=== PATIENT | male | born 1955 | race Caucasian/White ===

== ENCOUNTER 2018-08-05 19:33 | Observation (INO) | payer OTHER ==
[2018-08-05] MEDS ORDERED: ONDANSETRON 4 MG/2 ML VIAL ONE (20:04)
[2018-08-05] MEDS ORDERED: MORPHINE 4 MG/ML SYR ONE (20:04)
[2018-08-05] MEDS ORDERED: CYCLOBENZAPRINE 10 MG TAB ONE (20:19)
[2018-08-05] MEDS ORDERED: MEPERIDINE HCL 50 MG/ML AMP ONE (20:45)
[2018-08-05] MEDS ORDERED: NA CHLORIDE 0.9% 1,000 ML ONE (20:54)
--- NOTE | 2018-08-05 21:11 | RAD REPORT ---
EXAM DESCRIPTION: RAD - Chest Single View - 08/05/2018 9:03 pm CLINICAL HISTORY: back pain, diaphoresis Chest pain. COMPARISON: No comparisons FINDINGS: Portable technique limits examination quality. Mild to moderate bilateral pulmonary opacities are seen which may represent pulmonary edema or pneumo barry. The heart is normal in size. No displaced fractures.
[2018-08-05 21:23] LABS: Protime INR 1.28
[2018-08-05 21:58] LABS: ALT/SGPT 28 U/L (12-78); AST/SGOT 45 U/L (15-37); Albumin 3.9 g/dL (3.4-5.0); Alkaline Phosphatase 76 U/L (45-117); BUN Blood Urea Nitrogen 17 mg/dL (7-18); Bicarbonate 28 mmol/L (21-32); Bilirubin Direct 0.2 mg/dL (0-0.2); Bilirubin Total 1.4 mg/dL (0.2-1.0); Glucose Level 100 mg/dL (74-106); Magnesium 2.6 mg/dL (1.8-2.4); NT PRO-BNP 438 pg/mL (<125); Potassium 4.4 mmol/L (3.5-5.1); Protein, Total 6.9 g/dL (6.4-8.2); Sodium Level 139 mmol/L (136-145); Troponin (Emerg Dept Use Only) < 0.02 ng/mL (0.0-0.045)
[2018-08-05 22:10] LABS: Absolute Lymphocytes (CBC) 0.2 K/uL (0.7-4.9); Absolute Monocytes 0.9 K/uL (0.1-1.3); Absolute Neutrophil 5.7 K/uL (1.8-8.0); Basophils % 0.5 % (0-1.3); Eosinophils % 0.8 % (0-4.4); Hematocrit 57.2 % (39.6-49.0); Lymphocytes % 3.4 % (15.3-44.8); MCH 24.8 pg (27.0-35.0); MCV 76.4 fL (80-100); MPV 8.1 fL (7.6-11.3); Monocytes % 13.6 % (3.3-12.3); RBC Red Blood Cell Count 7.49 M/uL (4.33-5.43)
[2018-08-05 23:07] LABS: Anisocytosis 1+; Blood Morphology Comment NOTED (NOT SEEN); Platelet Estimate ADEQ; Urine White Blood Cell Casts OK
--- NOTE | 2018-08-05 23:47 | ER ---
Nurse's Notes [facility] Name: Gurvinder Ch Age: 62 yrs Sex: Male : 1955 Arrival Date: 08/05/2018 Time: 19:34 Bed 28 Private MD: Diagnosis: Severe back pain. Hypotension Presentation: 08/05 19:38 Presenting complaint: EMS states: Patient complained of having severe lower back pain kr2 said he slumped over and collapsed due to the severe pain. Upon EMS arrival he was awake but pale and diaphoretic with a blood pressure of 85/42. He was given 250mL bolus of saline and blood pressure came up to 120/80's. Transition of care: patient was not received from another setting of care. Onset of symptoms was August 05, 2018. Risk Assessment: Do you want to hurt yourself or someone else? Patient reports no desire to harm self or others. Initial Sepsis Screen: Does the patient meet any 2 criteria? No. Patient's initial sepsis screen is negative. Does the patient have a suspected source of infection? No. Patient's initial sepsis screen is negative. Care prior to arrival: Medication(s) given: Normal saline infusion, 250 ML IV initiated. 18 GA, in the left antecubital area. 19:38 Method Of Arrival: EMS: [facility] kr2 19:38 Acuity: JES 3 kr2 Triage Assessment: 19:44 General: Appears in no apparent distress. uncomfortable, slender, well groomed, well kr2 developed, well nourished, Behavior is cooperative, restless. Pain: Complains of pain in lumbar area, left low back and right low back Pain does not radiate. Pain currently is 10 out of 10 on a pain scale. Quality of pain is described as sharp, stabbing, Is continuous, Alleviated by nothing. Aggravated by laying flat, repositioning. Historical: - Allergies: 19:43 No Known Allergies; kr2 - Home Meds: 19:43 multivitamin oral oral [Active]; kr2 - PMHx: 19:43 None; kr2 - PSHx: 19:43 Hernia repair; kr2 - Immunization history:: Adult Immunizations up to date. - Social history:: Smoking status: Patient/guardian denies using tobacco. - Ebola Screening: : No symptoms or risks identified at this time. Screenin:47 Abuse screen: Denies threats or abuse. Denies injuries from another. Nutritional kr2 screening: No deficits noted. Tuberculosis screening: No symptoms or risk factors identified. Fall Risk IV access (20 points). Assessment: 19:53 Reassessment: mild pain noted in the lower back. mg2 19:54 Musculoskeletal: Capillary refill < 3 seconds, Reports pain in right low back and left mg2 low back since an hour ago. Pain is 2 out of 10 on a pain scale. 20:50 Reassessment: Entered patient room to help move him up in bed, patient diaphoretic and kr2 drowsy but responsive. Provider notified and at bedside, blood glucose done by me, EKG performed by CODIE Servin. 21:46 Reassessment: Josh Cervantes (Friend)- [phone]. mg2 22:19 Reassessment: patient sent to ct by stretcher. mg2 23:45 Reassessment: Patient with oxygen saturation at 85%, no SOB or s/sx of distress, placed kr2 on O2 \T\ 3 LPM via NC sats increased to 98%, Dr. Blunt notified. Vital Signs: 19:43 BP 131 / 97; Pulse 77; Resp 13; Temp 97.9; Pulse Ox 100% ; Weight 74.84 kg; Height 5 kr2 ft. 11 in. (180.34 cm); Pain 10/10; 20:52 BP 112 / 88 RA Supine (auto/reg); Pulse 73; Resp 20 S; Temp 97.7(O); Pulse Ox 98% on bb R/A; 20:52 BP 124 / 76 LA Supine (auto/reg); bb 21:25 BP 108 / 71; Pulse 63; Resp 18; Pulse Ox 98% on R/A; mg2 23:42 BP 92 / 57; Pulse 64; Resp 18; Pulse Ox 97% on 2 lpm NC; Pain 0/10; mg2 08/06 01:03 BP 111 / 83; Pulse 62; Resp 18; Pulse Ox 100% on R/A; Pain 0/10; mg2 01:24 BP 99 / 71; Pulse 60; Resp 18; Pulse Ox 98% on R/A; Pain 0/10; mg2 08/05 19:43 Body Mass Index 23.01 (74.84 kg, 180.34 cm) kr2 01:24 patient is sleeping mg2 ED Course: 08/05 19:34 Patient arrived in ED. al2 19:34 Naveen Blunt MD is Attending Physician. pkl 19:42 Triage completed. kr2 19:46 Arm band placed on right wrist. kr2 19:47 Patient has correct armband on for positive identification. Placed in gown. Bed in low kr2 position. Call light in reach. Side rails up X2. annealing furnace tender on. Pulse ox on. NIBP on. Door closed. Warm blanket given. Head of bed elevated. Turned to right side. 19:51 Mitchell Urias RN is Primary Nurse. mg2 19:51 No provider procedures requiring assistance completed. Maintain EMS IV. Dressing mg2 intact. Good blood return noted. Site clean \T\ dry. Gauge \T\ site: 18 at LAC. 21:04 XRAY Chest (1 view) In Process Unspecified. EDMS 22:31 CT Aorta for Dissection In Process Unspecified. EDMS 23:44 Oxygen administration via nasal cannula \T\ 3L/min. kr2 23:45 Brian Tomas MD is Hospitalizing Provider. pkl 08/06 00:00 Assisted with urinal. kr2 01:40 Patient admitted, IV remains in place. mg2 Administered Medications: 08/05 19:59 Drug: morphine 2 mg Route: IVP; Site: left antecubital; mg2 21:28 Follow up: Response: No adverse reaction; Marked relief of symptoms mg2 19:59 Drug: Zofran 4 mg Route: IVP; Site: left antecubital; mg2 21:28 Follow up: Response: No adverse reaction; Marked relief of symptoms mg2 20:14 Drug: Flexeril 10 mg Route: PO; mg2 21:27 Follow up: Response: No adverse reaction; Marked relief of symptoms mg2 20:40 Drug: Demerol 50 mg Route: IVP; Site: left antecubital; mg2 21:26 Follow up: Response: No adverse reaction; Marked relief of symptoms mg2 20:57 Drug: NS 0.9% 1000 ml Route: IV; Rate: 100 ml/hr; Site: left antecubital; mg2 23:42 Follow up: Response: No adverse reaction; IV Status: Completed infusion mg2 Point of Care Testing: Blood Glucose: 20:50 Blood Glucose: 76 mg/dL; mg2 20:50 Blood Glucose: 76 mg/dL; kr2 Ranges: Outcome: 23:47 Decision to Hospitalize by Provider. catarina 08/06 01:41 Admitted to Tele accompanied by tech, via stretcher, room 429, with chart, Report mg2 called to CODIE Carty Condition: stable Instructed on the need for admit, Demonstrated understanding of instructions. 02:10 Patient left the ED. mg2 Signatures: Dispatcher [employer] EDMS Naveen Blunt MD MD pkl Alka Fair, RN RN bb Ramona Iraheta RN RN kr2 Mera Hudson Michele, RN RN mg2
--- NOTE | 2018-08-05 23:47 | EDPHYS ---
Physician Documentation [facility] Name: Gurvinder Ch Age: 62 yrs Sex: Male : 1955 Arrival Date: 08/05/2018 Time: 19:34 Bed 28 Private MD: ED Physician Naveen Blunt HPI: 08/05 19:57 This 62 yrs old Male presents to ER via EMS with unknown complaint. pkl 19:57 The patient presents with pain that is acute. The symptoms are located in the low back. pkl Onset: The symptoms/episode began/occurred 3 day(s) ago, and became worse just prior to arrival, patient said he was trying lift a heavy object when the pain in the lower back became severe and he slumped over and almost passed out. Patient said he has history of chronic back pain and he said this was due to muscles strain.. The pain does not radiate. Associated signs and symptoms: Pertinent positives: EMS said patient was pale and diaphoretic on arrival at the scene.. Historical: - Allergies: 19:43 No Known Allergies; kr2 - Home Meds: 19:43 multivitamin oral oral [Active]; kr2 - PMHx: 19:43 None; kr2 - PSHx: 19:43 Hernia repair; kr2 - Immunization history:: Adult Immunizations up to date. - Social history:: Smoking status: Patient/guardian denies using tobacco. - Ebola Screening: : No symptoms or risks identified at this time. ROS: 19:57 Eyes: Negative for injury, pain, redness, and discharge, ENT: Negative for injury, pkl pain, and discharge, Neck: Negative for injury, pain, and swelling, Cardiovascular: Negative for chest pain, palpitations, and edema, Respiratory: Negative for shortness of breath, cough, wheezing, and pleuritic chest pain, Abdomen/GI: Negative for abdominal pain, nausea, vomiting, diarrhea, and constipation. 19:57 Back: Positive for pain with movement, of the lower back. 19:57 : Negative for urinary symptoms. 19:57 MS/extremity: Negative for acute changes. 19:57 Skin: Negative for rash. 19:57 Neuro: Negative for altered mental status. Exam: 19:57 Head/Face: Normocephalic, atraumatic. Eyes: Pupils equal round and reactive to light, pkl extra-ocular motions intact. Lids and lashes normal. Conjunctiva and sclera are non-icteric and not injected. Cornea within normal limits. Periorbital areas with no swelling, redness, or edema. ENT: Nares patent. No nasal discharge, no septal abnormalities noted. Tympanic membranes are normal and external auditory canals are clear. Oropharynx with no redness, swelling, or masses, exudates, or evidence of obstruction, uvula midline. Mucous membranes moist. Neck: Trachea midline, no thyromegaly or masses palpated, and no cervical lymphadenopathy. Supple, full range of motion without nuchal rigidity, or vertebral point tenderness. No Meningismus. Chest/axilla: Normal chest wall appearance and motion. Nontender with no deformity. No lesions are appreciated. Cardiovascular: Regular rate and rhythm with a normal S1 and S2. No gallops, murmurs, or rubs. Normal PMI, no JVD. No pulse deficits. Respiratory: Lungs have equal breath sounds bilaterally, clear to auscultation and percussion. No rales, rhonchi or wheezes noted. No increased work of breathing, no retractions or nasal flaring. Abdomen/GI: Soft, non-tender, with normal bowel sounds. No distension or tympany. No guarding or rebound. No evidence of tenderness throughout. 19:57 Back: pain, that is mild, of the lower back, Straight leg raises: of both lower extremities does not illicit pain. 19:57 : Exam negative for acute changes. 19:57 Musculoskeletal/extremity: Exam is negative for acute changes. 19:57 Skin: Exam negative for rash. 19:57 Neuro: Orientation: is normal, Mentation: is normal, Cranial nerves: grossly normal, Motor: is normal. Vital Signs: 19:43 BP 131 / 97; Pulse 77; Resp 13; Temp 97.9; Pulse Ox 100% ; Weight 74.84 kg; Height 5 kr2 ft. 11 in. (180.34 cm); Pain 10/10; 20:52 BP 112 / 88 RA Supine (auto/reg); Pulse 73; Resp 20 S; Temp 97.7(O); Pulse Ox 98% on bb R/A; 20:52 BP 124 / 76 LA Supine (auto/reg); bb 21:25 BP 108 / 71; Pulse 63; Resp 18; Pulse Ox 98% on R/A; mg2 23:42 BP 92 / 57; Pulse 64; Resp 18; Pulse Ox 97% on 2 lpm NC; Pain 0/10; mg2 08/06 01:03 BP 111 / 83; Pulse 62; Resp 18; Pulse Ox 100% on R/A; Pain 0/10; mg2 01:24 BP 99 / 71; Pulse 60; Resp 18; Pulse Ox 98% on R/A; Pain 0/10; mg2 08/05 19:43 Body Mass Index 23.01 (74.84 kg, 180.34 cm) kr2 01:24 patient is sleeping mg2 MDM: 08/05 19:34 Patient medically screened. pkl 23:45 Data reviewed: vital signs, nurses notes, lab test result(s), EKG, radiologic studies, pkl CT scan, plain films. 08/05 20:48 Order name: Basic Metabolic Panel; Complete Time: 22:01 pkl 08/05 20:48 Order name: CBC with Diff; Complete Time: 23:50 pkl 08/05 20:48 Order name: LFT's; Complete Time: 22:01 pkl 08/05 20:48 Order name: Magnesium; Complete Time: 22:01 pkl 08/05 20:48 Order name: NT PRO-BNP; Complete Time: 22:01 pkl 08/05 20:48 Order name: PT-INR; Complete Time: 22:01 pkl 08/05 20:48 Order name: Troponin (emerg Dept Use Only); Complete Time: 22:01 pkl 08/05 20:48 Order name: XRAY Chest (1 view); Complete Time: 21:17 pkl 08/05 21:17 Order name: CT Aorta for Dissection pkl 08/05 22:19 Order name: CBC Smear Scan; Complete Time: 23:50 EDMS 08/05 20:48 Order name: EKG; Complete Time: 20:49 pkl 08/05 20:48 Order name: Cardiac monitoring; Complete Time: 20:57 pkl 08/05 20:48 Order name: EKG - Nurse/Tech; Complete Time: 20:57 pkl 08/05 20:48 Order name: IV Saline Lock; Complete Time: 20:57 pkl 08/05 20:48 Order name: Labs collected and sent; Complete Time: 20:57 pkl 08/05 20:48 Order name: O2 Per Protocol; Complete Time: 20:57 pkl 08/05 20:48 Order name: O2 Sat Monitoring; Complete Time: 20:57 pkl Administered Medications: 19:59 Drug: morphine 2 mg Route: IVP; Site: left antecubital; mg2 21:28 Follow up: Response: No adverse reaction; Marked relief of symptoms mg2 19:59 Drug: Zofran 4 mg Route: IVP; Site: left antecubital; mg2 21:28 Follow up: Response: No adverse reaction; Marked relief of symptoms mg2 20:14 Drug: Flexeril 10 mg Route: PO; mg2 21:27 Follow up: Response: No adverse reaction; Marked relief of symptoms mg2 20:40 Drug: Demerol 50 mg Route: IVP; Site: left antecubital; mg2 21:26 Follow up: Response: No adverse reaction; Marked relief of symptoms mg2 20:57 Drug: NS 0.9% 1000 ml Route: IV; Rate: 100 ml/hr; Site: left antecubital; mg2 23:42 Follow up: Response: No adverse reaction; IV Status: Completed infusion mg2 Point of Care Testing: Blood Glucose: 20:50 Blood Glucose: 76 mg/dL; mg2 20:50 Blood Glucose: 76 mg/dL; kr2 Ranges: Critical Glucose Levels:Adult <50 mg/dl or >400 mg/dl <40 mg/dl or >180 mg/dl Disposition: 08/05/18 23:47 Hospitalization ordered by Brian Tomas for Observation. Preliminary diagnosis is Severe back pain. Hypotension. - Bed requested for Telemetry/MedSurg (observation). - Status is Observation. mg2 - Condition is Stable. - Problem is new. - Symptoms have improved. UTI on Admission? No Signatures: Dispatcher [employer] EDGA Ese De Leon RN RN kl Lam, Pin, MD MD pkl Reaves, Karey, RN RN kr2 Mitchell Urias RN RN mg2 Corrections: (The following items were deleted from the chart) 21:03 20:37 Lumbar Spine 3 Views+RAD.RAD.BRZ ordered. [facility] EDGA 08/06 01:23 08/05 23:47 Hospitalization Ordered by Brian Tomas MD for Observation. Preliminary kl diagnosis is Severe back pain. Hypotension. Bed requested for Telemetry/MedSurg (observation). Status is Observation. Condition is Stable. Problem is new. Symptoms have improved. UTI on Admission? No. pkl 08/06 02:10 01:23 08/05/2018 23:47 Hospitalization Ordered by Brian Tomas MD for Observation. mg2 Preliminary diagnosis is Severe back pain. Hypotension. Bed requested for Telemetry/MedSurg (observation). Status is Observation. Condition is Stable. Problem is new. Symptoms have improved. UTI on Admission? No. kl
[2018-08-06] MEDS ORDERED: CYCLOBENZAPRINE 10 MG TAB PO PRN (02:23)
[2018-08-06 03:21] VITALS: BMI 22.4
[2018-08-06 03:27] VITALS: O2SAT 98
--- NOTE | 2018-08-06 05:37 | P.HP ---
Certification for Inpatient Patient admitted to: Observation With expected LOS: <2 Midnights Practitioner: I am a practitioner with admitting privileges, knowledge of patient current condition, hospital course, and medical plan of care. Services: Services provided to patient in accordance with Admission requirements found in Title 42 Section 412.3 of the Code of Federal Regulations Patient History Date of Service: 08/05/18 Reason for admission: Back pain History of Present Illness: Mr Jing ruggiero is a 62-year-old male history of recurrent is of lower back pain, he stated that was at home yesterday and he slipped from the chair to the ground , after that he started with severe lower back pain. 911 common when EMS arrived , found the patient diaphoretic with BP 85/42. He denied any chest pain, shortness of breath. He received 250 ml normal saline bolus and his systolic blood pressure increased to 120. Then the patient was transferred to ER for evaluation. During his stay in ED, he had another episode of diaphoresis and low blood pressure. CT dissection was done, it was negative for dissection. No history of fever or chills. Allergies No Known Allergies Allergy (Verified 07/15/14 10:14) Home medications list reviewed: Yes Home Medications: NK [No Home Meds] 07/12/14 - Past Medical/Surgical History Has patient received pneumonia vaccine in the past: No Diabetic: No -: Chronic back pain -: inguinal hernina repair -: cataract surgery - Family History Father -: Heart disease Mother -: Cancer - Social History Smoking Status: Light Tobacco smoker (1-9 cigarettes/day) Counseled patient to stop smoking for: less than 10 minutes Alcohol use: Yes CD- Drugs: No Caffeine use: Yes Place of Residence: Home Review of Systems 10-point ROS is otherwise unremarkable Physical Examination - Vital Signs Temperature: 97.1 F Blood Pressure: 99/63 Pulse: 57 Respirations: 18 Pulse Ox (%): 96 - Physical Exam General: Alert, In no apparent distress HEENT: Atraumatic, PERRLA, Mucous membr. moist/pink, EOMI, Sclerae nonicteric Neck: Supple, 2+ carotid pulse no bruit, No LAD, Without JVD or thyroid abnormality Respiratory: Clear to auscultation bilaterally, Normal air movement Cardiovascular: Regular rate/rhythm, Normal S1 S2 Gastrointestinal: Normal bowel sounds, No tenderness Musculoskeletal: Tenderness (Lumbar back pain) Integumentary: No rashes Neurological: Normal speech, Normal strength at 5/5 x4 extr, Normal tone, Normal affect Lymphatics: No axilla or inguinal lymphadenopathy - Studies Laboratory Data (last 24 hrs) 08/05/18 22:00: WBC 7.0, Hgb 18.6 H, Hct 57.2 H, Plt Count 545 H 08/05/18 19:40: PT 15.1 H, INR 1.28 08/05/18 19:40: Sodium 139, Potassium 4.4, BUN 17, Creatinine 0.90, Glucose 100 , Magnesium 2.6 H, Total Bilirubin 1.4 H, AST 45 H, ALT 28, Alkaline Phosphatase 76 Assessment and Plan - Problems (Diagnosis) (1) Lower back pain Current Visit: Yes Status: Acute Qualifiers: Chronicity: acute Back pain laterality: midline Sciatica presence: without sciatica Qualified Code(s): M54.5 - Low back pain (2) Tobacco abuse Current Visit: Yes Status: Acute - Plan The patient will be admitted to the hospital due to lower back pain, leading with vasovagal episode due to pain. CT dissection was negative, no PE either. Will order physical therapy evaluation, lumbar spine MRI, and symptomatic medication for pain. - Advance Directives Does patient have a Living Will: No Does patient have a Durable POA for Healthcare: No - Code Status/Comfort Care Code Status Assessed: Yes Code Status: Full Code
--- NOTE | 2018-08-06 05:50 | EKG ---
Test Date: 2018-08-05 Test Time: 20:51:38 Digital Business Analyst: LA MEASUREMENT RESULTS: Intervals: Rate: 69 LA: 152 QRSD: 114 QT: 424 QTc: 454 Mitchell: P: 58 LA: 152 QRS: -39 T: -48 INTERPRETIVE STATEMENTS: Sinus rhythm with frequent premature ventricular complexes Possible Left atrial enlargement Left axis deviation Incomplete right bundle branch block ST & T wave abnormality, consider inferior ischemia Abnormal ECG No previous ECG available for comparison Electronically Signed On 08-06-18 05:49:[address] JUDGE by Seth Brown
[2018-08-06] MEDS ORDERED: ENOXAPARIN 40 MG/0.4 ML SQ SCH (09:00)
--- NOTE | 2018-08-06 11:50 | RAD REPORT ---
EXAM DESCRIPTION: CT - Angio Aorta For Dissection - 08/06/2018 5:55 am CLINICAL HISTORY: Chest pain radiating to the back. back pain, diaphoresis, hypotension COMPARISON: No comparisons TECHNIQUE: CT angiography of the aorta was performed with MIPs. All CT scans are performed using dose optimization technique as appropriate and may include automated exposure control or mA/KV adjustment according to patient size. FINDINGS: A left aortic arch is present with normal branching pattern of the great vessels.No acute aortic finding is seen such as aneurysm, penetrating ulcer or dissection. The celiac axis, SMA, MICHELLE and renal arteries are widely patent. No evidence of pulmonary embolism. The lungs are clear. 2 cm right thyroid nodule seen. The liver demonstrates no focal mass or biliary dilatation.Cholelithiasis.The spleen, pancreas, adren al glands and kidneys are within normal limits for arterial phase imaging.22 mm cyst left kidney. Mucosal thickening involves the stomach. No bowel obstruction, free fluid or abscess.Sigmoid diverticulosis.No pathologic enlarged lymphadenop athy identified.Right inguinal surgical clips. No fracture or worrisome bone lesion seen.Prominent lumbosacral degenerative changes. IMPRESSION: No acute aortic finding is demonstrated. Cholelithiasis.
[2018-08-06 12:17] VITALS: TEMP 97.5
[2018-08-06 12:25] VITALS: BP 104/68
--- NOTE | 2018-08-07 02:17 | DS ---
Date of Discharge: 08/06/2018 Discharge Diagnoses: 1. Acute low back pain, midline, without sciatica. 2. Nicotine dependence with cigarette smoking counseling. 3. Thyroid nodule on the right 2 cm, we will need outpatient ultrasound and fine needle aspiration. 4. Lumbosacral degenerative changes. 5. Left renal cyst, benign. 6. Lung granuloma, calcified. 7. Intractable back pain. Hospital Course: The patient is a 62-year-old male with history of back pain, comes in with acute exacerbation and intractable pain. The patient had muscle spasm, sharp pain, and was unable to walk. The patient denies any red flag symptoms including perianal numbness. No bowel or bladder incontinence. The patient had some improvement with pain medication. He was also given some muscle relaxants, which helped his pain. The patient had a CT dissection done which ruled out any PE or aortic findings and I did have a whole host of incidental findings including left renal cyst which is likely benign, which should be followed up as needed. Right thyroid nodule 2 cm, which should be evaluated further with ultrasound and FNA due to its size. The patient also has some calcified granulomas, however, no lymphadenopathy. The patient needs to be further worked up for possible RA by his PCP. The patient was informed of these incidental findings. He understands that he needs further workup including thyroid ultrasound, FNA to rule out any cancerous lesion in the thyroid. Also needs workup for granulomatous disease and to follow up with his primary care physician, Dr. Ramírez. Regarding his back pain, the patient will be discharged as he has no red flag symptoms. He is able to walk. Does not have any further symptoms. He is afebrile. No signs of sepsis. Doubt any intrathecal infection. The patient again does not want an MRI. The patient able to ambulate without difficulty. The patient was then cleared for discharge. He was sent home in a stable condition. Activity: No driving or operating heavy machinery while on muscle relaxants. Diet: Heart healthy diet. Followup: Follow up with primary care physician, Dr. Ramírez in 2 to 3 weeks. Return to ER for worsening condition. Medications: As per medication reconciliation list. Physical Examination: General: Awake, alert, oriented x3, not in acute distress. Elderly male. CV: S1, S2. No murmurs. Respiratory: Moving air well bilaterally. No wheezing. Gastrointestinal: Abdomen is soft, nontender, nondistended. Positive bowel sounds. Extremities: No clubbing, cyanosis, or edema. Neurologic: Nonfocal. Muscle strength 5/5 bilateral upper and lower extremities. Sensation intact to light touch. Musculoskeletal: No tenderness in lumbar spine. /PATRICIA Voice ID: [id number] Report ID: [id number] [facility]
== END 2018-08-06 12:40 | disposition home or self-care (01) ==
LOC: ER 19:33 → ERHOLD 23:48 → 4TH 08-06 01:41
PROVIDERS: ADMIT Internal Medicine; ATTEND Internal Medicine
DX: M54.5 Low back pain (principal); F17.210 Nicotine dependence, cigarettes, uncomplicated; E04.1 Nontoxic single thyroid nodule; M51.37 Other intervertebral disc degeneration, lumbosacral region; N28.1 Cyst of kidney, acquired; J84.10 Pulmonary fibrosis, unspecified
CPT/HCPCS: 36415; 71045; 71275; 74175; 80048; 80076; 82962; 83735; 83880; 84484; 85025; 85610; 93005; 96361; 96374; 96375; 97163; 99285; G0378; J1650; J2175; J2405; J7030; Q9967

== ENCOUNTER 2018-11-05 09:06 | Emergency (ER) | payer OTHER ==
--- NOTE | 2018-11-05 09:30 | RAD REPORT ---
EXAM DESCRIPTION: CT - Ct Stroke Brain Wo Cont - 11/05/2018 9:17 am CLINICAL HISTORY: Syncope and left-sided weakness COMPARISON: None. TECHNIQUE: Computed axial tomography of the head was obtained. IV contrast was not requested. All CT scans are performed using dose optimization technique as appropriate and may include automated exposure control or mA/KV adjustment according to patient size. FINDINGS: An intracranial bleed is not seen . The ventricles are normal in caliber. No extra-axial fluid collection is noted. Mild to moderate low-density area is present within periventricular, deep and subcortical white matte r likely represent ischemic changes secondary to small vessel disease. 7 millimeter low-density right basal ganglia Fluid within the sinuses/ mastoids is not seen. IMPRESSION: A 7 millimeter low-density right basal ganglia consistent with lacunar infarct. Age is i ndeterminate. Mild to moderate low-density areas within periventricular, deep and subcortical white matter likely r epresent ischemic changes secondary to small vessel disease If clinically indicated further evaluation with MRI would be helpful Exam discussed with Dr. Joshi emergency room 9:22 a.m. November 05, 2018
[2018-11-05] MEDS ORDERED: ALTEPLASE 100 ML IV ONE (09:40)
[2018-11-05] MEDS ORDERED: NA CHLORIDE 0.9% 1,000 ML ONE (09:40)
--- NOTE | 2018-11-05 09:54 | RAD REPORT ---
EXAM DESCRIPTION: Tonia Single View11/05/2018 9:45 am CLINICAL HISTORY: Chest pain COMPARISON: July 2018 FINDINGS: Mild to moderate bilateral interstitial opacities are unchanged and presumably chronic A lung consolidation is not seen. Heart is upper limits normal size IMPRESSION: No acute abnormalities displayed
--- NOTE | 2018-11-05 09:54 | EDPHYS ---
Physician Documentation [facility] Name: Gurvinder Ch Age: 63 yrs Sex: Male : 1955 Arrival Date: 11/05/2018 Time: 09:07 Bed 3 Private MD: ED Physician Alf Joshi HPI: 11/05 09:49 This 63 yrs old Male presents to ER via EMS with complaints of S/S of gs Possible Stroke. 09:49 The patient's problem is reported as a facial droop, paresthesias, weakness. Onset: The gs symptoms/episode began/occurred today, at 08:05. Duration: This was a single incident, The episode is continuous. The symptoms are alleviated by nothing. The symptoms are aggravated by nothing. Associated signs and symptoms: Pertinent negatives: agitation, ataxia, seizure. Severity of symptoms: At their worst the symptoms were severe in the emergency department the symptoms are unchanged. The patient has not experienced similar symptoms in the past. Historical: - Allergies: 09:24 No Known Allergies; ph - Home Meds: 09:24 multivitamin Oral [Active]; ph - PSHx: 09:24 Hernia repair; ph - Immunization history:: Adult Immunizations unknown. - Social history:: Smoking status: Patient uses tobacco products, denies chronic smoking, but will smoke occasionally, Patient uses alcohol, occasionally. - Ebola Screening: : No symptoms or risks identified at this time. ROS: 09:49 All other systems are negative. gs Exam: 09:49 Head/Face: Normocephalic, atraumatic. Eyes: Pupils equal round and reactive to light, gs extra-ocular motions intact. Lids and lashes normal. Conjunctiva and sclera are non-icteric and not injected. Cornea within normal limits. Periorbital areas with no swelling, redness, or edema. ENT: Nares patent. No nasal discharge, no septal abnormalities noted. Tympanic membranes are normal and external auditory canals are clear. Oropharynx with no redness, swelling, or masses, exudates, or evidence of obstruction, uvula midline. Mucous membranes moist. Neck: Trachea midline, no thyromegaly or masses palpated, and no cervical lymphadenopathy. Supple, full range of motion without nuchal rigidity, or vertebral point tenderness. No Meningismus. Chest/axilla: Normal chest wall appearance and motion. Nontender with no deformity. No lesions are appreciated. Cardiovascular: Regular rate and rhythm with a normal S1 and S2. No gallops, murmurs, or rubs. Normal PMI, no JVD. No pulse deficits. 09:49 Respiratory: Lungs have equal breath sounds bilaterally, clear to auscultation and percussion. No rales, rhonchi or wheezes noted. No increased work of breathing, no retractions or nasal flaring. Abdomen/GI: Soft, non-tender, with normal bowel sounds. No distension or tympany. No guarding or rebound. No evidence of tenderness throughout. Back: No spinal tenderness. No costovertebral tenderness. Full range of motion. Skin: Warm, dry with normal turgor. Normal color with no rashes, no lesions, and no evidence of cellulitis. MS/ Extremity: Pulses equal, no cyanosis. Neurovascular intact. Full, normal range of motion. 09:49 Constitutional: The patient appears alert, awake. 09:49 Cardiovascular: Rate: normal. 09:49 Neuro: Orientation: to person, place, time \T\ situation. Mentation: slow to respond, Memory: is normal, Cranial nerves: facial droop noted on left, Cerebellar function: dysmetria is noted on the left, Motor: moves all fours, strength is 4/5 in the left arm and left leg, Sensation: numbness, that is moderate, of the left arm and left leg. Vital Signs: 09:16 BP 130 / 84; Pulse 72; Resp 16 S; Pulse Ox 98% on R/A; Weight 74.84 kg; Height 5 ft. 11 in. (180.34 cm); 09:45 BP 133 / 106; Pulse 98; Resp 20; Pulse Ox 99% on R/A; ph 10:05 BP 151 / 116; Pulse 92; Resp 16; Pulse Ox 98% on R/A; ph 10:20 BP 153 / 91; Pulse 80; Resp 20; Pulse Ox 100% on R/A; ph 10:40 BP 154 / 96; Pulse 81; Resp 16; Temp 98.7; Pulse Ox 99% on R/A; ph 09:16 Body Mass Index 23.01 (74.84 kg, 180.34 cm) NIH Stroke Scale Scores: 09:15 NIHSS Score: 8 ph 09:25 NIHSS Score: 8 gs MDM: 09:17 Patient medically screened. 09:49 Differential diagnosis: CVA, TIA, paralysis, metabolic disorder. Data reviewed: vital gs signs, nurses notes, lab test result(s), radiologic studies. Response to treatment: the patient's symptoms have mildly improved after treatment. ED course: tpa given for stroke. 09:49 ED course: transfer non neuro. 11/05 09:08 Order name: glucometer results - FOR PT WITH NO ID 11/05 09:21 Order name: Basic Metabolic Panel 11/05 09:09 Order name: CT Stroke Brain w/o Contrast; Complete Time: 09:40 iw 11/05 09:21 Order name: CBC with Diff 11/05 09:21 Order name: Protime (+inr) 11/05 09:21 Order name: Ptt, Activated 11/05 09:20 Order name: Head angio EDNM 11/05 09:21 Order name: Stroke CXR 1 View 11/05 09:21 Order name: EKG; Complete Time: 09:22 11/05 09:21 Order name: Accucheck; Complete Time: 09:27 11/05 09:21 Order name: Cardiac monitoring; Complete Time: 09:27 11/05 09:21 Order name: EKG - Nurse/Tech; Complete Time: 09:54 11/05 09:21 Order name: IV Saline Lock; Complete Time: 09:27 11/05 09:21 Order name: Labs collected and sent; Complete Time: 09:27 11/05 09:21 Order name: NPO; Complete Time: 09:27 11/05 09:21 Order name: O2 Per Protocol; Complete Time: 09:27 11/05 09:21 Order name: O2 Sat Monitoring; Complete Time: 09:27 11/05 09:21 Order name: Stroke Swallow Screen; Complete Time: 09:54 Administered Medications: 09:47 Drug: Alteplase {Co-Signature: carlton (Joe Adams RN).} Route: IV Thrombolytics; Rate: iw calculated rate; 10:09 Follow up: Response: No adverse reaction iw 10:46 Follow up: Response: No adverse reaction ph 10:47 Follow up: infusion continued upon transfer ph Point of Care Testing: Blood Glucose: 09:07 Blood Glucose: 115 mg/dL; Ranges: Critical Glucose Levels:Adult <50 mg/dl or >400 mg/dl <40 mg/dl or >180 mg/dl Disposition: 11/05/18 09:53 Transfer ordered to [facility]. Diagnosis is Cerebral infarction. - Reason for transfer: Higher level of care. - Accepting physician is lalit. - Condition is Stable. - Problem is new. - Symptoms are unchanged. Critical care time excluding procedures: 09:53 Critical care time: Bedside Care: 10 minutes, Consultation: 10 minutes, Family gs Intervention: 10 minutes. Total time: 30 minutes NIH Stroke Scale - NIH Stroke Score Date: 11/05/2018 Time: 09:15 Total Score = 8 1a. Level of Consciousness (LOC) - 0(Alert) 1b. Level of Consciousness (LOC) (Year \T\ Age) - 0(Both) 1c. LOC Commands (Open \T\ Closes Eyes/Fire [employer]) - 0(Both) 2. Best Gaze (Lateral Gaze Paresis) - 0(Normal) 3. Visual Field Loss - 0(No visual loss) 4. Facial Palsy - 1(Minor Paralysis) 5a. Left Arm: Motor (10-second hold) - 1(Drift) 5b. Right Arm: Motor (10-second hold) - 0(No drift) 6a. Left Leg: Motor (5-second hold - always test supine) - 1(Drift) 6b. Right Leg: Motor (5-second hold - always test supine) - 0(No drift) 7. Limb Ataxia (finger/nose \T\ heel/smith - test with eyes open) - 2(Present in two limbs) 8. Sensory Loss (pinprick arms/legs/face) - 1(Mild to moderate loss) 9. Best Language: Aphasia (description/naming/reading) - 0(No aphasia) 10. Dysarthria (speech clarity - read or repeat words) - 1(Mild to Moderate) 11. Extinction and Inattention (visual/tactile/auditory/spatial/personal) - 1(Present) Initials: ph NIH Stroke Scale - NIH Stroke Score Date: 11/05/2018 Time: 09:25 Total Score = 8 1a. Level of Consciousness (LOC) - 0(Alert) 1b. Level of Consciousness (LOC) (Year \T\ Age) - 0(Both) 1c. LOC Commands (Open \T\ Closes Eyes/Fire Fighter [employer]) - 0(Both) 2. Best Gaze (Lateral Gaze Paresis) - 0(Normal) 3. Visual Field Loss - 0(No visual loss) 4. Facial Palsy - 1(Minor Paralysis) 5a. Left Arm: Motor (10-second hold) - 1(Drift) 5b. Right Arm: Motor (10-second hold) - 0(No drift) 6a. Left Leg: Motor (5-second hold - always test supine) - 1(Drift) 6b. Right Leg: Motor (5-second hold - always test supine) - 0(No drift) 7. Limb Ataxia (finger/nose \T\ heel/smith - test with eyes open) - 2(Present in two limbs) 8. Sensory Loss (pinprick arms/legs/face) - 1(Mild to moderate loss) 9. Best Language: Aphasia (description/naming/reading) - 0(No aphasia) 10. Dysarthria (speech clarity - read or repeat words) - 1(Mild to Moderate) 11. Extinction and Inattention (visual/tactile/auditory/spatial/personal) - 1(Present) Initials: Signatures: Dispatcher [employer] EDMalou Vale RN RN Valerie Choi RN RN Alf Joshi MD MD Joe Adams RN Corrections: (The following items were deleted from the chart) 10:48 09:53 11/05/2018 09:53 Transfer ordered to [facility]. ph Diagnosis is Cerebral infarction. Reason for transfer: Higher level of care. Accepting physician is lalit. Condition is Stable. Problem is new. Symptoms are unchanged. gs
--- NOTE | 2018-11-05 09:54 | ER ---
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 Transition of care: patient was not received from another setting of care. No acute neurological deficit is noted. The patients blood glucose was checked before arriving to the hospital and was found to be normal. Onset of symptoms was November 05, 2018. Risk Assessment: Do you want to hurt yourself or someone else? Patient reports no desire to harm self or others. Initial Sepsis Screen: Does the patient meet any 2 criteria? No. Patient's initial sepsis screen is negative. Does the patient have a suspected source of infection? No. Patient's initial sepsis screen is negative. 09:05 Method Of Arrival: EMS: [facility] 09:05 Acuity: JES 1 ph 09:05 Care prior to arrival: IV initiated. 20 GA, in the right antecubital area, Glucose ph check: 151. Triage Assessment: 11:06 The onset of the patients symptoms was November 05, 2018 at 08:15. ph Stroke Activation: Symptom onset < 3 hours Physician: Stroke Attending; Name: ; Notified At: ; Arrived At: Physician: Chief Stroke Resident; Name: ; Notified At: ; Arrived At: Physician: Stroke Resident; Name: ; Notified At: ; Arrived At: Physician: ED Attending; Name: Madelyn; Notified At: ; Arrived At: Physician: ED Resident; Name: ; Notified At: ; Arrived At: Historical: - Allergies: 09:24 No Known Allergies; ph - Home Meds: 09:24 multivitamin Oral [Active]; ph - PSHx: 09:24 Hernia repair; ph - Immunization history:: Adult Immunizations unknown. - Social history:: Smoking status: Patient uses tobacco products, denies chronic smoking, but will smoke occasionally, Patient uses alcohol, occasionally. - Ebola Screening: : No symptoms or risks identified at this time. Screenin:38 Abuse screen: Denies threats or abuse. Denies injuries from another. Nutritional ph screening: No deficits noted. Tuberculosis screening: No symptoms or risk factors identified. Fall Risk No fall in past 12 months (0 pts). Secondary diagnosis (15 points) CVA, IV access (20 points). Ambulatory Aid- None/Bed Rest/Nurse Assist (0 pts). Gait- Impaired (20 pts.). Mental Status- Oriented to own ability (0 pts). Total Jhaveri Fall Scale indicates High Risk Score (45 or more points). Fall prevention measures have been instituted. Side Rails Up X 2 Placed Close to Nursing Station Frequent Obs/Assessments Occuring Family Present and informed to notify staff if the need to leave the bedside As available patient and family educated on Fall Prevention Program and Strategies. Assessment: 09:05 Reassessment: Pt taken to CT from ambulance bay, accompanied by RN. ph 09:12 Reassessment: pt back from CT, Dr. Joshi at bedside to assess pt. iw 09:15 General: Appears in no apparent distress. uncomfortable, slender, well groomed, ph Behavior is calm, cooperative. Pain: Complains of pain in right frontal area, right temporal area and right side of forehead. 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 Cardiovascular: Reports lightheadedness, Denies chest pain, nausea, shortness of breath, vomiting, Capillary refill is sluggish in bilateral fingers. Respiratory: Airway is patent Respiratory effort is even, unlabored, Respiratory pattern is regular, symmetrical, Denies shortness of breath. GI: No signs and/or symptoms were reported involving the gastrointestinal system. Patient currently denies abdominal pain, nausea, vomiting. Derm: Skin is intact, Skin is clammy, Skin is pale, Skin temperature is cool. 09:49 Reassessment: called the outside lab, sent the wrong specimen, spoke with Omar; lab tech acknowledge it;. 09:54 Patient has been NPO before screening. The patient is alert, and able to follow commands. The patient does not exhibit slurred or garbled speech. The patient is not exhibiting difficulty speaking. The patient does not exhibit difficulty understanding words. The patient is able to swallow own secretions with no drooling or need for suction. Patient tolerated one teaspoon of water. No drooling, immediate coughing, gurgling, or clearing of the throat was noted. The patient tolerated 90mL of water. No drooling, immediate coughing, gurgling, or clearing of the throat was noted. The patient passed the bedside swallow screening. Oral medications may be given as ordered. Contact Physician for further diet orders. Provider notified of bedside swallow screening results: Valerie Choi RN. T-PA (Activase) Screening: Indications: Definite evidence of stroke, ischemic, embolic, or hypertensive: Yes. Treatment will start within 4.5 hours onset of symptoms: Yes. No evidence of intracranial hemorrhage or CT of head and no evidence of peripheral hemorrhage or recent CVA: Yes. 10:05 Reassessment: Patient appears in no apparent distress at this time. Patient and/or ph family updated on plan of care and expected duration. Pain level reassessed. Deficits appear to be improving, droop to L aide of face improved, pt also noted to be moving L arm and L leg, drift to L arm noted to have improved as well, awaiting EMS for tranfer. 10:37 Reassessment: Patient appears in no apparent distress at this time. Patient and/or ph family updated on plan of care and expected duration. Pain level reassessed. Symptoms continuing to improve, LJ EMS at bedside, report given to JOSIANE Bauer-P. Vital Signs: 09:16 BP 130 / 84; Pulse 72; Resp 16 S; Pulse Ox 98% on R/A; Weight 74.84 kg; Height 5 ft. 11 in. (180.34 cm); 09:45 BP 133 / 106; Pulse 98; Resp 20; Pulse Ox 99% on R/A; ph 10:05 BP 151 / 116; Pulse 92; Resp 16; Pulse Ox 98% on R/A; ph 10:20 BP 153 / 91; Pulse 80; Resp 20; Pulse Ox 100% on R/A; ph 10:40 BP 154 / 96; Pulse 81; Resp 16; Temp 98.7; Pulse Ox 99% on R/A; ph 09:16 Body Mass Index 23.01 (74.84 kg, 180.34 cm) NIH Stroke Scale Scores: 09:15 NIHSS Score: 8 ph 09:25 NIHSS Score: 8 ED Course: 09:07 Patient arrived in ED. hj 09:11 Alf Joshi MD is Attending Physician. gs 09:13 Arm band placed on. ph 09:15 Patient has correct armband on for positive identification. Placed in gown. Bed in low ph position. Call light in reach. Side rails up X2. hospital monitor on. Pulse ox on. NIBP on. Warm blanket given. Verbal reassurance given. 09:17 CT Stroke Brain w/o Contrast In Process Unspecified. EDMS 09:18 Valerie Choi RN is Primary Nurse. ph 09:22 Triage completed. ph 09:22 Inserted saline lock: 18 gauge in left antecubital area, using aseptic technique. Blood ph collected. Maintain EMS IV. Dressing intact. Good blood return noted. Site clean \T\ dry. Gauge \T\ site: 20 RAC. 09:42 Head angio In Process Unspecified. EDMS 09:45 X-ray completed. Portable x-ray completed in exam room. Patient tolerated procedure tm4 well. 09:46 Stroke CXR 1 View In Process Unspecified. EDMS 10:30 No provider procedures requiring assistance completed. Patient transferred, IV remains ph in place. Administered Medications: 09:47 Drug: Alteplase {Co-Signature: carlton (Joe Adams RN).} Route: IV Thrombolytics; Rate: iw calculated rate; 10:09 Follow up: Response: No adverse reaction iw 10:46 Follow up: Response: No adverse reaction ph 10:47 Follow up: infusion continued upon transfer ph Point of Care Testing: Blood Glucose: 09:07 Blood Glucose: 115 mg/dL; carlton Ranges: Intake: Outcome: 09:53 ER care complete, transfer ordered by . gs 10:45 Transferred by ground EMS EMS. to [facility], Transfer form ph completed. X-rays sent w/ patient. 10:45 Condition: stable 10:45 Instructed on the need for transfer. 10:48 Patient left the ED. NIH Stroke Scale - NIH Stroke Score Date: 11/05/2018 Time: 09:15 Total Score = 8 1a. Level of Consciousness (LOC) - 0(Alert) 1b. Level of Consciousness (LOC) (Year \T\ Age) - 0(Both) 1c. LOC Commands (Open \T\ Closes Eyes/Community Service Coordinator) - 0(Both) 2. Best Gaze (Lateral Gaze Paresis) - 0(Normal) 3. Visual Field Loss - 0(No visual loss) 4. Facial Palsy - 1(Minor Paralysis) 5a. Left Arm: Motor (10-second hold) - 1(Drift) 5b. Right Arm: Motor (10-second hold) - 0(No drift) 6a. Left Leg: Motor (5-second hold - always test supine) - 1(Drift) 6b. Right Leg: Motor (5-second hold - always test supine) - 0(No drift) 7. Limb Ataxia (finger/nose \T\ heel/smith - test with eyes open) - 2(Present in two limbs) 8. Sensory Loss (pinprick arms/legs/face) - 1(Mild to moderate loss) 9. Best Language: Aphasia (description/naming/reading) - 0(No aphasia) 10. Dysarthria (speech clarity - read or repeat words) - 1(Mild to Moderate) 11. Extinction and Inattention (visual/tactile/auditory/spatial/personal) - 1(Present) Initials: NIH Stroke Scale - NIH Stroke Score Date: 11/05/2018 Time: 09:25 Total Score = 8 1a. Level of Consciousness (LOC) - 0(Alert) 1b. Level of Consciousness (LOC) (Year \T\ Age) - 0(Both) 1c. LOC Commands (Open \T\ Closes Eyes/Community Service Coordinator) - 0(Both) 2. Best Gaze (Lateral Gaze Paresis) - 0(Normal) 3. Visual Field Loss - 0(No visual loss) 4. Facial Palsy - 1(Minor Paralysis) 5a. Left Arm: Motor (10-second hold) - 1(Drift) 5b. Right Arm: Motor (10-second hold) - 0(No drift) 6a. Left Leg: Motor (5-second hold - always test supine) - 1(Drift) 6b. Right Leg: Motor (5-second hold - always test supine) - 0(No drift) 7. Limb Ataxia (finger/nose \T\ heel/smith - test with eyes open) - 2(Present in two limbs) 8. Sensory Loss (pinprick arms/legs/face) - 1(Mild to moderate loss) 9. Best Language: Aphasia (description/naming/reading) - 0(No aphasia) 10. Dysarthria (speech clarity - read or repeat words) - 1(Mild to Moderate) 11. Extinction and Inattention (visual/tactile/auditory/spatial/personal) - 1(Present) Initials: Signatures: Dispatcher [employer] EDMS Ashli Schroeder tm4 Malou Asencio RN RN Valerie Choi RN RN Bryan, CODIE Diaz RN Alf Joshi MD MD Joe Adams RN Corrections: (The following items were deleted from the chart) 09:33 09:05 Presenting complaint: EMS states: EMS called for syncopal episode at [facility], upon EMS arrival pt was lethargic, skin cool, clammy and diaphoretic, L sided facial droop and weakness to L arm and leg, also slurred speech, A\T\O x 4, BGL 151, 12 lead showed BBB and multiple PVCs, pt taken directly to CT, last known normal approx 0845 ph 09:35 09:16 BP 130 / 84; Pulse 72bpm; Resp 16bpm; Spontaneous; Pulse Ox 98% RA; [facility]
--- NOTE | 2018-11-05 10:10 | RAD REPORT ---
EXAM DESCRIPTION: CTHead angio11/05/2018 9:42 am CLINICAL HISTORY: Syncope COMPARISON: None TECHNIQUE: CT angiogram of the head was obtained. 3D MIPS reconstruction performed. All CT scans are performed using dose optimization technique as appropriate and may include automated exposure control or mA/KV adjustment according to patient size. FINDINGS: The basilar, internal carotid, anterior cerebral, left middle middle cerebral and posterio r cerebral arteries are normal caliber. An aneurysm is not seen. 1 centimeter of the proximal right middle cerebral arteries is opacified. There is little opacificati on of the remainder of the proximal and mid right middle cerebral artery. Diminished opacification of the distal branches of the right middle cerebral artery noted. origin right posterior cerebral artery A significant stenosis is not noted. IMPRESSION: Diminished opacification of most of the right middle cerebral artery. This is suspicious for an acute occlusion Exam was discussed with Dr. Joshi 10:02 a.m. November 05, 2018
[2018-11-05 10:12] LABS: Absolute Lymphocytes (CBC) 0.6 K/uL (0.7-4.9); Absolute Monocytes 0.5 K/uL (0.1-1.3); Absolute Neutrophil 3.7 K/uL (1.8-8.0); Eosinophils % 2.4 % (0-4.4); Lymphocytes % 11.3 % (15.3-44.8); MPV 7.9 fL (7.6-11.3); Monocytes % 10.8 % (3.3-12.3)
[2018-11-05 10:16] LABS: Hematocrit 62.8 % (39.6-49.0)
[2018-11-05 10:20] LABS: Protime INR 1.17
[2018-11-05 10:22] LABS: RBC Red Blood Cell Count 8.28 M/uL (4.33-5.43)
[2018-11-05 10:24] LABS: BUN Blood Urea Nitrogen 13 mg/dL (7-18); Bicarbonate 30 mmol/L (21-32); Glucose Level 165 mg/dL (74-106); Potassium 4.3 mmol/L (3.5-5.1); Sodium Level 141 mmol/L (136-145)
[2018-11-05 10:55] VITALS: BP 130/84; O2SAT 98
[2018-11-05 11:01] LABS: Anisocytosis 1+; Blood Morphology Comment NOTED (NOT SEEN); Platelet Estimate ADEQ; Urine White Blood Cell Casts OK
--- NOTE | 2018-11-06 07:39 | EKG ---
Test Date: 2018-11-05 Test Time: 09:52:57 Junior Engineer: OLIVIA MEASUREMENT RESULTS: Intervals: Rate: 83 AK: 168 QRSD: 116 QT: 414 QTc: 486 [place]: P: 72 AK: 168 QRS: -54 T: 66 INTERPRETIVE STATEMENTS: Sinus rhythm with fusion complexes Possible Left atrial enlargement Incomplete right bundle branch block Left anterior fascicular block Possible Anterior infarct, age undetermined Abnormal ECG Compared to ECG 08/05/2018 20:51:38 Fusion complex(es) now present Left anterior fascicular block now present Myocardial infarct finding now present Ventricular premature complex(es) no longer present Left-axis deviation no longer present ST (T wave) deviation no longer present Possible ischemia no longer present Electronically Signed On 11-06-18 07:37:43 PEN RIDER by Evangelist Neely
== END 2018-11-05 10:48 | disposition short-term general hospital (02) ==
LOC: ER 09:06
DX: I63.9 Cerebral infarction, unspecified (principal); R29.708 NIHSS score 8; Z72.0 Tobacco use
CPT/HCPCS: 36415; 70450; 70496; 71045; 80048; 82962; 85025; 85610; 85730; 92977; 93005; 99291; J2997; J7030; Q9967

== ENCOUNTER 2020-05-21 22:51 | Emergency (ER) | payer OTHER ==
--- OUTSIDE RECORDS SUMMARY | 2020-05-21 22:53 | XMS REPORT | Clinical Summary ---
:[address] [facility] Address [address] [place] [address] Care Team Providers Name Role Phone [facility], N/A Primary Care Provi claire Unavailable Allergies No Known Allergies Medications Medication Sig Dispensed Refills Start Date End Date Status multivitamin per Take 1 tablet 0 Active tablet by mouth daily. apixaban (ELIQUIS) 5 Take 1 tablet 60 tablet 1 12/05/2018 Active mg Tab tablet (5 mg total) by mouth 2 (two) times daily. famotidine (PEPCID) 20 Take 1 tablet 60 tablet 1 12/05/2018 Active MG tablet (20 mg total) by mouth 2 (two) times daily. hydrOXYzine (ATARAX) Take 1 tablet 30 tablet 1 12/05/2018 Active 25 MG tablet (25 mg total) by mouth every 6 (six) hours as needed for Anxiety. aspirin 81 MG chewable Take 1 tablet 30 tablet 1 12/06/2018 tablet (81 mg total) by mouth daily. atorvastatin (LIPITOR) Take 1 tablet 30 tablet 1 12/05/2018 80 MG tablet (80 mg total) by mouth nightly. citalopram (CELEXA) 10 Take 1 tablet 30 tablet 1 12/06/2018 MG tablet (10 mg total) by mouth daily. clopidogrel (PLAVIX) Take 1 tablet 30 tablet 1 12/06/201811/17 75 mg tablet (75 mg total) by mouth daily. fluticasone (FLONASE) 1 spray by 9.9 mL 1 12/05/20182019 50 mcg/actuation nasal Nasal route spray daily as needed for Rhinitis. sodium chloride 0.65% 1 spray by 88 mL 1 12/05/20182019 (OCEAN) 0.65 % nasal Nasal route 3 spray (three) times daily. psyllium (METAMUCIL Take 1 packet 60 each 1 12/05/201812/04 SUGAR-FREE) 3.4 gram by mouth 2 packet (two) times daily. Active Problems Problem Noted Date Impaired mobility and ADLs 11/22/2018 Abnormal gait 11/22/2018 Polycythemia vera 11/17/2018 Elevated hemoglobin 11/08/2018 Thrombocytosis 11/08/2018 Atrial fibrillation with rapid ventricular response NSTEMI (non-ST elevated myocardial infarction) 019 Acute ischemic right MCA stroke 11/05/2018 Social History Tobacco Use Types Packs/Day Years Used Date Current Some Day Smoker Cigars Sex Assigned at Date Recorded Not on file Job Start Date Occupation Industry Not on file Not on file Not on file Travel History Travel Start Travel End No recent travel history available. Last Filed Vital Signs Not on file Plan of Treatment Not on file Results Not on fileafter 05/21/2019 Insurance Payer Benefit Plan / Group Subscriber ID Type Phone A ddress [facility] PPO/POS xxxxxxxxxxx PPO SYSTEM Advance Directives For more information, please contact:[place] [id number] [place], [place] [phone] Code Status Date Activated Date Inactivated Comments Partial Code 11/22/2018 3:27 PM 12/06/2018 4:23 PM Confirmed w ith patient on 11/22/2018. This code status was determined by: Patient Drug Protocol After Arrest Occurs? Yes Mechanical Ventilation with Intubation? No Bag/Mask? Yes Internal/External Pacemaker? Yes Transfer to Critical Care? Yes Chest Compressions? Yes Defibrillation/Cardioversion? Yes Full Code 11/22/2018 2:49 PM 11/22/2018 3:27 PM This code status was determined by: Patient Full Code 11/05/2018 1:05 PM 11/22/2018 2:24 PM This code status was determined by: Patient
--- OUTSIDE RECORDS SUMMARY | 2020-05-21 22:57 | XMS REPORT | Continuity of Care Document ---
:1955 Author Organization [facility] t Address [address] [place] [address] Care Team Providers Name Role Phone [facility] Primary Care Physician Unavailable JOSE R Attending Clinician Unavailable PIOTR REYES Attending Clinician Unavail able ODELL Admitting Clinician Unavailable PIOTR REYES Admitting Clinician Unavail able Advance Directives Directive Decision Effective Date Termination Date Comments Sour ce Partial Code Yes 2018-11-22 2018-12-06 [facility] - Confirmed with 00:00:00 00:00:00 Medical Ce nter patient on 11/22/2018. This code status was determined by: Patient Drug Protocol After Arrest Occurs? Yes Mechanical Ventilation with Intubation? No Bag/Mask? Yes Internal/External Pacemaker? Yes Transfer to Critical Care? Yes Chest Compressions? Yes Defibrillation/Card ioversion? Yes Problems Condition Condition Condition Status Onset Resolution Last Treating Co mments Source Name Details Category Date Date Treatment Clinician Date Impaired Impaired Disease [facility] - and ADLs and ADLs 00:00: Medica l 00 Center Abnormal Abnormal Disease [facility] - [facility] Center Polycythem Polycythem Disease Active [facility] ia vera 3- [facility] - [facility] Medical 00 Center Elevated Elevated Disease [facility] hemoglobin 2-20 [facility] - 00:00: Medical 00 Center Thrombocyt Thrombocyt Disease Active [facility] osis osis 2-20 [facility] - 00:00: Medical 00 Center Atrial Atrial Disease Active [facility] fibrillati fibrillati 2-20 [facility] - on with on with 00:00: Medical rapid rapid 00 Center ventricula ventricula r response r response NSTEMI NSTEMI Disease Active [facility] (non-ST (non-ST 2-18 [facility] - elevated elevated 00:00: Medica l myocardial myocardial 00 Ce nter infarction infarction ) ) Acute Acute Disease Active [facility] ischemic ischemic 2-17 [facility] - right MCA right MCA 00:00: [facility] stroke stroke 00 Center Allergies, Adverse Reactions, Alerts This patient has no known allergies or adverse reactions. Social History Social Habit Start Date Stop Date Quantity Comments Source History of tobacco use Cigar Smoker [facility] Sex Assigned At [facility] Smoking Status Start Date Stop Date Source Current some day smoker 2018-11-14 00:00:00 [facility] Medications Ordered Filled Start Stop Current Ordering Indication Dosage Frequency Signature Comments Components Source Medication Medication Date Date Medication? Clinician (SIG) Name Name aspirin 81 2020- No 81mg QD Take [address] [facility] MG chewable 3-20 03-19 tablet (81 L ukes - tablet 00:00: 23:59 mg total) Medic al 00 :00 by mouth Center daily. citalopram 2019- No 10mg QD Take [address] [facility] (CELEXA) 10 3-20 03-19 tablet (10 L ukes - MG tablet 00:00: 23:59 mg total) Me dical 00 :00 by mouth Center daily. clopidogrel 2019- No 75mg QD Take [address] [facility] (PLAVIX) 75 3-20 03-19 tablet (75 L ukes - mg tablet 00:00: 23:59 mg total) Me dical 00 :00 by mouth Center daily. apixaban Yes 5mg Q.5D Take [address] [facility] (ELIQUIS) 5 3-19 tablet (5 Fidelia es - mg Tab 00:00: mg total) Medica l tablet 00 by mouth 2 Center (two) times daily. famotidine 2018- Yes 20mg Q.5D Take 1 [facility] (PEPCID) 20 3-19 tablet (20 Kat kes - MG tablet 00:00: mg total) Med ical 00 by mouth 2 Center (two) times daily. hydrOXYzine Yes 25mg Take [address] [facility] (ATARAX) 25 3-19 tablet (25 Kat kes - MG tablet 00:00: mg total) Med ical 00 by mouth Center every 6 (six) hours as needed for Anxiety. atorvastati 2020- No 80mg QD Take [address] [facility] n (LIPITOR) 12-05 tablet (80 L ukes - 80 MG 00:00: 23:59 mg total) Medica l tablet 00 :00 by mouth Center nightly. fluticasone 2020- No 1{spray [address] [facility] (FLONASE) 12-05 } Nasal [facility] - 50 00:00: 23:59 route Medical mcg/actuati 00 :00 daily as Cent er on nasal needed for spray Rhinitis. sodium 2020- No 1{spray Q.[id number] [address] [facility] chloride 12-05 } [id number] Nasal Fidelia es - 0.65% 00:00: 23:59 3D route 3 Medical (OCEAN) 00 :00 (three) Center 0.65 % times nasal spray daily. psyllium 2020- No 1{packe Q.5D Take [address] [facility] (METAMUCIL 12-05 t} packet by Fidelia es - SUGAR-FREE) 00:00: 23:59 mouth 2 Me dical 3.4 gram 00 :00 (two) Center packet times daily. multivitami Yes 1{tbl} QD Take [address] n per 2-18 tablet by [facility] - tablet 07:57: mouth Medical 05 daily. Center Procedures This patient has no known procedures. Results Test Description Test Time Test Comments Results Result Comments Source RETICULOCYTE COUNT 2018-12-06 11:59:00 Test Item Value Reference Range Interpretation Comme nts RETICULOCYTE COUNT PCT (JOSE ANTONIO) (test code = 575) 2.2 % 0.5- 1.8 H [id number] 11:41:00 Test Item Value Reference Range Interpretation Comments FERRITIN (JOSE ANTONIO) (test code = 361) 26 ng/mL 5-275 CBC W/PLT COUNT & AUTO [id number] 11:31:00 Test Item Value Reference Range Interpretation Comments WHITE BLOOD CELL COUNT (JOSE ANTONIO) 2.1 K/ L 3.5-10.5 L (test code = 775) RED BLOOD CELL COUNT (BEAKER) 6.87 M/ L 4.63-6.08 H (test code = 761) HEMOGLOBIN (BEAKER) (test code = 17.2 GM/DL 13.7-17.5 410) HEMATOCRIT (BEAKER) (test code = 53.9 % 40.1-51.0 H 411) MEAN CORPUSCULAR VOLUME (BEAKER) 78.5 fL 79.0-92.2 L (test code = 753) MEAN CORPUSCULAR HEMOGLOBIN 25.0 pg 25.7-32.2 L (BEAKER) (test code = 751) MEAN CORPUSCULAR HEMOGLOBIN CONC 31.9 GM/DL 32.3-36.5 L (BEAKER) (test code = 752) RED CELL DISTRIBUTION WIDTH 26.5 % 11.6-14.4 H (BEAKER) (test code = 412) PLATELET COUNT (BEAKER) (test 287 K/CU MM 150-450 code = 756) MEAN PLATELET VOLUME (BEAKER) 9.6 fL 9.4-12.4 (test code = 754) NUCLEATED RED BLOOD CELLS 0 /100 WBC 0-0 (BEAKER) (test code = 413) NEUTROPHILS RELATIVE PERCENT 69 % (BEAKER) (test code = 429) LYMPHOCYTES RELATIVE PERCENT 15 % (BEAKER) (test code = 430) MONOCYTES RELATIVE PERCENT 10 % (BEAKER) (test code = 431) EOSINOPHILS RELATIVE PERCENT 1 % (BEAKER) (test code = 432) BASOPHILS RELATIVE PERCENT 4 % (BEAKER) (test code = 437) NEUTROPHILS ABSOLUTE COUNT 1.41 K/ L 1.78-5.38 L (BEAKER) (test code = 670) LYMPHOCYTES ABSOLUTE COUNT 0.31 K/ L 1.32-3.57 L (BEAKER) (test code = 414) MONOCYTES ABSOLUTE COUNT (BEAKER) 0.21 K/ L 0.30-0.82 L (test code = 415) EOSINOPHILS ABSOLUTE COUNT 0.02 K/ L 0.04-0.54 L (BEAKER) (test code = 416) BASOPHILS ABSOLUTE COUNT (BEAKER) 0.08 K/ L 0.01-0.08 (test code = 417) IMMATURE GRANULOCYTES-RELATIVE 1 % 0-1 PERCENT (BEAKER) (test code = 2801) POCT-GLUCOSE [id number] 10:41:00 Test Item Value Reference Range Interpretation Comments POC-GLUCOSE METER 73 mg/dL 70-110 TESTED AT [facility] [address] (BEAKER) (test code = [place] [address] 1538) CBC W/PLT COUNT & AUTO [id number] 04:14:00 Test Item Value Reference Range Interpretation Comments WHITE BLOOD CELL COUNT (BEAKER) 2.2 K/ L 3.5-10.5 L (test code = 775) RED BLOOD CELL COUNT (BEAKER) 6.84 M/ L 4.63-6.08 H (test code = 761) HEMOGLOBIN (BEAKER) (test code = 16.8 GM/DL 13.7-17.5 410) HEMATOCRIT (BEAKER) (test code = 53.4 % 40.1-51.0 H 411) MEAN CORPUSCULAR VOLUME (BEAKER) 78.1 fL 79.0-92.2 L (test code = 753) MEAN CORPUSCULAR HEMOGLOBIN 24.6 pg 25.7-32.2 L (BEAKER) (test code = 751) MEAN CORPUSCULAR HEMOGLOBIN CONC 31.5 GM/DL 32.3-36.5 L (BEAKER) (test code = 752) RED CELL DISTRIBUTION WIDTH 25.6 % 11.6-14.4 H (BEAKER) (test code = 412) PLATELET COUNT (BEAKER) (test 236 K/CU MM 150-450 code = 756) MEAN PLATELET VOLUME (BEAKER) 9.3 fL 9.4-12.4 L (test code = 754) NUCLEATED RED BLOOD CELLS 0 /100 WBC 0-0 (BEAKER) (test code = 413) NEUTROPHILS RELATIVE PERCENT 62 % (BEAKER) (test code = 429) LYMPHOCYTES RELATIVE PERCENT 20 % (BEAKER) (test code = 430) MONOCYTES RELATIVE PERCENT 13 % (BEAKER) (test code = 431) EOSINOPHILS RELATIVE PERCENT 2 % (BEAKER) (test code = 432) BASOPHILS RELATIVE PERCENT 3 % (BEAKER) (test code = 437) NEUTROPHILS ABSOLUTE COUNT 1.35 K/ L 1.78-5.38 L (BEAKER) (test code = 670) LYMPHOCYTES ABSOLUTE COUNT 0.44 K/ L 1.32-3.57 L (BEAKER) (test code = 414) MONOCYTES ABSOLUTE COUNT (BEAKER) 0.28 K/ L 0.30-0.82 L (test code = 415) EOSINOPHILS ABSOLUTE COUNT 0.05 K/ L 0.04-0.54 (BEAKER) (test code = 416) BASOPHILS ABSOLUTE COUNT (BEAKER) 0.06 K/ L 0.01-0.08 (test code = 417) IMMATURE GRANULOCYTES-RELATIVE 1 % 0-1 PERCENT (BEAKER) (test code = 2801) CBC W/PLT COUNT & AUTO [id number] 11:27:00 Test Item Value Reference Range Interpretation Comments WHITE BLOOD CELL COUNT (BEAKER) 2.3 K/ L 3.5-10.5 L (test code = 775) RED BLOOD CELL COUNT (BEAKER) 7.52 M/ L 4.63-6.08 H (test code = 761) HEMOGLOBIN (BEAKER) (test code = 18.4 GM/DL 13.7-17.5 H 410) HEMATOCRIT (BEAKER) (test code = 57.3 % 40.1-51.0 H 411) MEAN CORPUSCULAR VOLUME (BEAKER) 76.2 fL 79.0-92.2 L (test code = 753) MEAN CORPUSCULAR HEMOGLOBIN 24.5 pg 25.7-32.2 L (BEAKER) (test code = 751) MEAN CORPUSCULAR HEMOGLOBIN CONC 32.1 GM/DL 32.3-36.5 L (BEAKER) (test code = 752) RED CELL DISTRIBUTION WIDTH 25.2 % 11.6-14.4 H (BEAKER) (test code = 412) PLATELET COUNT (BEAKER) (test 304 K/CU MM 150-450 code = 756) MEAN PLATELET VOLUME (BEAKER) 9.1 fL 9.4-12.4 L (test code = 754) NUCLEATED RED BLOOD CELLS 0 /100 WBC 0-0 (BEAKER) (test code = 413) NEUTROPHILS RELATIVE PERCENT 68 % (BEAKER) (test code = 429) LYMPHOCYTES RELATIVE PERCENT 19 % (BEAKER) (test code = 430) MONOCYTES RELATIVE PERCENT 8 % (BEAKER) (test code = 431) EOSINOPHILS RELATIVE PERCENT 2 % (BEAKER) (test code = 432) BASOPHILS RELATIVE PERCENT 2 % (BEAKER) (test code = 437) NEUTROPHILS ABSOLUTE COUNT 1.56 K/ L 1.78-5.38 L (BEAKER) (test code = 670) LYMPHOCYTES ABSOLUTE COUNT 0.44 K/ L 1.32-3.57 L (BEAKER) (test code = 414) MONOCYTES ABSOLUTE COUNT (BEAKER) 0.19 K/ L 0.30-0.82 L (test code = 415) EOSINOPHILS ABSOLUTE COUNT 0.04 K/ L 0.04-0.54 (BEAKER) (test code = 416) BASOPHILS ABSOLUTE COUNT (BEAKER) 0.05 K/ L 0.01-0.08 (test code = 417) IMMATURE GRANULOCYTES-RELATIVE 0 % 0-1 PERCENT (BEAKER) (test code = 2801) BASIC METABOLIC [id number] 05:38:00 Test Item Value Reference Range Interpretation Comments SODIUM (BEAKER) 137 meq/L 136-145 (test code = 381) POTASSIUM (BEAKER) 4.1 meq/L 3.5-5.1 (test code = 379) CHLORIDE (BEAKER) 104 meq/L 98-107 (test code = 382) CO2 (BEAKER) (test 26 meq/L 22-29 code = 355) BLOOD UREA NITROGEN 12 mg/dL 7-21 (BEAKER) (test code = 354) CREATININE (BEAKER) 0.56 mg/dL 0.57-1.25 L (test code = 358) GLUCOSE RANDOM 72 mg/dL 70-105 (BEAKER) (test code = 652) CALCIUM (BEAKER) 8.8 mg/dL 8.4-10.2 (test code = 697) EGFR (BEAKER) (test 147 mL/min/1.73 ESTIM ATED GFR IS code = 1092) sq m NOT ACCURATE CREATININE CLEARANCE IN PREDICTING GLOMERULAR FILTRATION RATE . ESTIMATED GFR I S NOT APPLICABLE FOR DIALYSIS PATIEN TS. CBC W/PLT COUNT & AUTO [id number] 07:04:00 Test Item Value Reference Range Interpretation Comments WHITE BLOOD CELL COUNT (BEAKER) 2.6 K/ L 3.5-10.5 L (test code = 775) RED BLOOD CELL COUNT (BEAKER) 7.12 M/ L 4.63-6.08 H (test code = 761) HEMOGLOBIN (BEAKER) (test code = 17.0 GM/DL 13.7-17.5 410) HEMATOCRIT (BEAKER) (test code = 54.7 % 40.1-51.0 H 411) MEAN CORPUSCULAR VOLUME (BEAKER) 76.8 fL 79.0-92.2 L (test code = 753) MEAN CORPUSCULAR HEMOGLOBIN 23.9 pg 25.7-32.2 L (BEAKER) (test code = 751) MEAN CORPUSCULAR HEMOGLOBIN CONC 31.1 GM/DL 32.3-36.5 L (BEAKER) (test code = 752) RED CELL DISTRIBUTION WIDTH 24.4 % 11.6-14.4 H (BEAKER) (test code = 412) PLATELET COUNT (BEAKER) (test 298 K/CU MM 150-450 code = 756) MEAN PLATELET VOLUME (BEAKER) 9.1 fL 9.4-12.4 L (test code = 754) NUCLEATED RED BLOOD CELLS 0 /100 WBC 0-0 (BEAKER) (test code = 413) NEUTROPHILS RELATIVE PERCENT 70 % (BEAKER) (test code = 429) LYMPHOCYTES RELATIVE PERCENT 13 % (BEAKER) (test code = 430) MONOCYTES RELATIVE PERCENT 11 % (BEAKER) (test code = 431) EOSINOPHILS RELATIVE PERCENT 2 % (BEAKER) (test code = 432) BASOPHILS RELATIVE PERCENT 3 % (BEAKER) (test code = 437) NEUTROPHILS ABSOLUTE COUNT 1.79 K/ L 1.78-5.38 (BEAKER) (test code = 670) LYMPHOCYTES ABSOLUTE COUNT 0.34 K/ L 1.32-3.57 L (BEAKER) (test code = 414) MONOCYTES ABSOLUTE COUNT (BEAKER) 0.28 K/ L 0.30-0.82 L (test code = 415) EOSINOPHILS ABSOLUTE COUNT 0.06 K/ L 0.04-0.54 (BEAKER) (test code = 416) BASOPHILS ABSOLUTE COUNT (BEAKER) 0.07 K/ L 0.01-0.08 (test code = 417) IMMATURE GRANULOCYTES-RELATIVE 0 % 0-1 PERCENT (BEAKER) (test code = 2801) CBC W/PLT COUNT & AUTO [id number] 07:07:00 Test Item Value Reference Range Interpretation Comments WHITE BLOOD CELL COUNT (BEAKER) 2.2 K/ L 3.5-10.5 L (test code = 775) RED BLOOD CELL COUNT (BEAKER) 6.84 M/ L 4.63-6.08 H (test code = 761) HEMOGLOBIN (BEAKER) (test code = 16.7 GM/DL 13.7-17.5 410) HEMATOCRIT (BEAKER) (test code = 53.4 % 40.1-51.0 H 411) MEAN CORPUSCULAR VOLUME (BEAKER) 78.1 fL 79.0-92.2 L (test code = 753) MEAN CORPUSCULAR HEMOGLOBIN 24.4 pg 25.7-32.2 L (BEAKER) (test code = 751) MEAN CORPUSCULAR HEMOGLOBIN CONC 31.3 GM/DL 32.3-36.5 L (BEAKER) (test code = 752) RED CELL DISTRIBUTION WIDTH 24.3 % 11.6-14.4 H (BEAKER) (test code = 412) PLATELET COUNT (BEAKER) (test 292 K/CU MM 150-450 code = 756) MEAN PLATELET VOLUME (BEAKER) 9.6 fL 9.4-12.4 (test code = 754) NUCLEATED RED BLOOD CELLS 0 /100 WBC 0-0 (BEAKER) (test code = 413) NEUTROPHILS RELATIVE PERCENT 69 % (BEAKER) (test code = 429) LYMPHOCYTES RELATIVE PERCENT 16 % (BEAKER) (test code = 430) MONOCYTES RELATIVE PERCENT 8 % (BEAKER) (test code = 431) EOSINOPHILS RELATIVE PERCENT 3 % (BEAKER) (test code = 432) BASOPHILS RELATIVE PERCENT 4 % (BEAKER) (test code = 437) NEUTROPHILS ABSOLUTE COUNT 1.52 K/ L 1.78-5.38 L (BEAKER) (test code = 670) LYMPHOCYTES ABSOLUTE COUNT 0.36 K/ L 1.32-3.57 L (BEAKER) (test code = 414) MONOCYTES ABSOLUTE COUNT (BEAKER) 0.17 K/ L 0.30-0.82 L (test code = 415) EOSINOPHILS ABSOLUTE COUNT 0.07 K/ L 0.04-0.54 (BEAKER) (test code = 416) BASOPHILS ABSOLUTE COUNT (BEAKER) 0.08 K/ L 0.01-0.08 (test code = 417) IMMATURE GRANULOCYTES-RELATIVE 1 % 0-1 PERCENT (BEAKER) (test code = 2801) BONE MARROW [id number] 09:59:00Bone Marrow Pathology Report Case: [id number] Authorizing Provider: Shama Yao MD Collected: 11/20/2018 1350 Ordering Location: [address] Received: 11/20/2018 1411 Cardiovascular Pathologist: Zack Haji MD Specimens: A) - Iliac Crest, Right B) - C) - Karyotype is reported to be 46,XY[20].Mutational studies for BCR-ABL, calreticulin, and MPL are reported to be NEGATIVE.The overall findings in conjunction with the reported JAK2 mutation positivity and 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 Addendum electronically signed by Zack Haji MD on 12/01/2018 at 9:59 AMBONE MARROW ASPIRATE, CLOT, AND DECALCIFIED BIOPSY:MYELOPROLIFERATIVE NEOPLASM.RESIDUAL TRILINEAGE HEMATOPOIESIS IS PRESENT.SEE DIAGNOSTIC COMMENT PERIPHERAL BLOOD:THROMBOCYTO SIS.ELEVATED RED CELL INDICES.NO CIRCULATING BLASTS. Signing Pathologist Direct Phone Line: [phone] signed by Zack Haji MD on 11/23/2018 at 9:07 AMThis patient has a recently confirmed JAK2 mutation as per the electronic medical records in [facility] as well as a reported clinical history of thrombocytosis and increased red cell indices. The findings support a diagnosisof a myeloproliferative neoplasm. Additional molecular and cytogenetic studies are currently pending. Results of these studies as well as a final interpretation and classification will be provided in an addendum report. 98917; 99906; 53408 x 2; 78984; 73187 x 3; 87579, 35232Sqt Stemi elevated myocardial infarctionRight iliac crest bone marrow Specimen is received in three parts all labeled with the patient's information and labeled "right iliac crest bone marrow".Specimen A consists of several aspirate smears with one unstained slide for iron stain.Specimen B is received in formalin and consists ofmultiple fragments of blood clot measuring 1 x 0.5 x 0.3 cm. The specimen is entirely submitted in cassette B1.Specimen C consists of a serrano-red bone core measuring 1 cm in length submitted entirely in cassette C1 for decalcification. CG/ewBONE MARROW ASPIRATE:QUALITY:Aspirate- AdequateTouch imprint- AdequateMARROW DIFFERENTIAL COUNT: Number of cells counted: 5004.6 % Blasts 1.8 % Promyelocytes 4.2 % Myelocytes/Metamyelocytes 22 % Bands/Segmented granulocytes 4.2 % Eosinophils and precursors 0.0 % Basophils and precursors 55.4 % Erythroid precursors 3.8 % Lymphocytes 3.2 % Monocytes0.8 % Plasma cellsMyeloid Erythroid Ratio: 0.6 Blasts: Not increased Erythropoiesis: Increased, occasional bilobed formsMyelopoiesis: Adequate, complete maturation Megakaryocytes: Increased with dyspoeitic forms including hypolobated and separate nuclei, occasional micromegakaryocytes seenStainable iron is not identified on rare marrow particles on the aspirate smear. Ring sideroblasts are not identified. BONE MARROW BIOPSY: Biopsy- Adequate Clot- Suboptimal Mildly hypercellular marrow (40-50% cellularity) with abnormal clustering of megakaryocytes which are increased in number and show atypical features. Erythroid and myeloid lineages are adequate. No lymphoid aggregates or increased plasma cells identified. Immunohistochemistry performed on the core biopsy demonstrate CD34 positive blasts toaccount for approximately 5% of the marrow cellularity. Stainable iron is not identified on the clotsection by the Perls iron special stain. MARROW FIBROSIS STAINS: Cambridge's reticulin shows focal increa sed in reticulin fibrosisTrichrome - Irene shows minimal focal collagenic deposition. WHO grade formarrow fibrosis is grade 1 to 2. PERIPHERAL BLOOD:Red cells: Increased in number, minimal anisopoikilocytosis and polychromasia White cells: No circulating blasts. Platelets: Increased, numerous giant and large forms seenThis bone marrow core biopsy and aspirate procedure was performed by Dr. Galileo Jimenez, clinical pathologist.The interpretation of this case included the use of immunohistochemistry or special stains.BLOCK B1- PERLS IRON BLOCK C1: CD34, Cambridge's reticulin, Trichrome - MassonImmunohistochemistry technical testing was performed at [facility], Pathology Laboratory where it was developed and its performance characteristics were determined. It has not been cleared or approved by the U.S. Food and Drug Administration. The FDA has determined that such clearance or approval is not necessary. The test is used for clinical purposes. It should not be regarded as investigational or for research. This laboratory is certified under the Clinical Laboratory Improvement Amendments of 1988 (CLIA-88) as qualified to perform high complexity clinical laboratory testing.CBC W/PLT COUNT & AUTO [id number] 03:56:00 Test Item Value Reference Range Interpretation Comments WHITE BLOOD CELL COUNT (BEAKER) 2.5 K/ L 3.5-10.5 L (test code = 775) RED BLOOD CELL COUNT (BEAKER) 6.71 M/ L 4.63-6.08 H (test code = 761) HEMOGLOBIN (BEAKER) (test code = 16.1 GM/DL 13.7-17.5 410) HEMATOCRIT (BEAKER) (test code = 51.6 % 40.1-51.0 H 411) MEAN CORPUSCULAR VOLUME (BEAKER) 76.9 fL 79.0-92.2 L (test code = 753) MEAN CORPUSCULAR HEMOGLOBIN 24.0 pg 25.7-32.2 L (BEAKER) (test code = 751) MEAN CORPUSCULAR HEMOGLOBIN CONC 31.2 GM/DL 32.3-36.5 L (BEAKER) (test code = 752) RED CELL DISTRIBUTION WIDTH 23.6 % 11.6-14.4 H (BEAKER) (test code = 412) PLATELET COUNT (BEAKER) (test 348 K/CU MM 150-450 code = 756) MEAN PLATELET VOLUME (BEAKER) 9.5 fL 9.4-12.4 (test code = 754) NUCLEATED RED BLOOD CELLS 0 /100 WBC 0-0 (BEAKER) (test code = 413) NEUTROPHILS RELATIVE PERCENT 67 % (BEAKER) (test code = 429) LYMPHOCYTES RELATIVE PERCENT 19 % (BEAKER) (test code = 430) MONOCYTES RELATIVE PERCENT 9 % (BEAKER) (test code = 431) EOSINOPHILS RELATIVE PERCENT 2 % (BEAKER) (test code = 432) BASOPHILS RELATIVE PERCENT 2 % (BEAKER) (test code = 437) NEUTROPHILS ABSOLUTE COUNT 1.70 K/ L 1.78-5.38 L (BEAKER) (test code = 670) LYMPHOCYTES ABSOLUTE COUNT 0.47 K/ L 1.32-3.57 L (BEAKER) (test code = 414) MONOCYTES ABSOLUTE COUNT (BEAKER) 0.22 K/ L 0.30-0.82 L (test code = 415) EOSINOPHILS ABSOLUTE COUNT 0.06 K/ L 0.04-0.54 (BEAKER) (test code = 416) BASOPHILS ABSOLUTE COUNT (BEAKER) 0.06 K/ L 0.01-0.08 (test code = 417) IMMATURE GRANULOCYTES-RELATIVE 0 % 0-1 PERCENT (BEAKER) (test code = 2801) CBC W/PLT COUNT & AUTO [id number] 07:20:00 Test Item Value Reference Range Interpretation Comments WHITE BLOOD CELL COUNT (BEAKER) 3.6 K/ L 3.5-10.5 (test code = 775) RED BLOOD CELL COUNT (BEAKER) 6.85 M/ L 4.63-6.08 H (test code = 761) HEMOGLOBIN (BEAKER) (test code = 16.4 GM/DL 13.7-17.5 410) HEMATOCRIT (BEAKER) (test code = 52.5 % 40.1-51.0 H 411) MEAN CORPUSCULAR VOLUME (BEAKER) 76.6 fL 79.0-92.2 L (test code = 753) MEAN CORPUSCULAR HEMOGLOBIN 23.9 pg 25.7-32.2 L (BEAKER) (test code = 751) MEAN CORPUSCULAR HEMOGLOBIN CONC 31.2 GM/DL 32.3-36.5 L (BEAKER) (test code = 752) RED CELL DISTRIBUTION WIDTH 23.4 % 11.6-14.4 H (BEAKER) (test code = 412) PLATELET COUNT (BEAKER) (test 448 K/CU MM 150-450 code = 756) MEAN PLATELET VOLUME (BEAKER) 9.1 fL 9.4-12.4 L (test code = 754) NUCLEATED RED BLOOD CELLS 1 /100 WBC 0-0 H (BEAKER) (test code = 413) NEUTROPHILS RELATIVE PERCENT 77 % (BEAKER) (test code = 429) LYMPHOCYTES RELATIVE PERCENT 12 % (BEAKER) (test code = 430) MONOCYTES RELATIVE PERCENT 7 % (BEAKER) (test code = 431) EOSINOPHILS RELATIVE PERCENT 2 % (BEAKER) (test code = 432) BASOPHILS RELATIVE PERCENT 2 % (BEAKER) (test code = 437) NEUTROPHILS ABSOLUTE COUNT 2.73 K/ L 1.78-5.38 (BEAKER) (test code = 670) LYMPHOCYTES ABSOLUTE COUNT 0.43 K/ L 1.32-3.57 L (BEAKER) (test code = 414) MONOCYTES ABSOLUTE COUNT (BEAKER) 0.24 K/ L 0.30-0.82 L (test code = 415) EOSINOPHILS ABSOLUTE COUNT 0.06 K/ L 0.04-0.54 (BEAKER) (test code = 416) BASOPHILS ABSOLUTE COUNT (BEAKER) 0.07 K/ L 0.01-0.08 (test code = 417) IMMATURE GRANULOCYTES-RELATIVE 1 % 0-1 PERCENT (BEAKER) (test code = 2801) CBC W/PLT COUNT & AUTO [id number] 13:16:00 Test Item Value Reference Range Interpretation Comments WHITE BLOOD CELL COUNT (BEAKER) 4.3 K/ L 3.5-10.5 (test code = 775) RED BLOOD CELL COUNT (BEAKER) 7.33 M/ L 4.63-6.08 H (test code = 761) HEMOGLOBIN (BEAKER) (test code = 17.6 GM/DL 13.7-17.5 H 410) HEMATOCRIT (BEAKER) (test code = 55.2 % 40.1-51.0 H 411) MEAN CORPUSCULAR VOLUME (BEAKER) 75.3 fL 79.0-92.2 L (test code = 753) MEAN CORPUSCULAR HEMOGLOBIN 24.0 pg 25.7-32.2 L (BEAKER) (test code = 751) MEAN CORPUSCULAR HEMOGLOBIN CONC 31.9 GM/DL 32.3-36.5 L (BEAKER) (test code = 752) RED CELL DISTRIBUTION WIDTH 23.3 % 11.6-14.4 H (BEAKER) (test code = 412) PLATELET COUNT (BEAKER) (test 553 K/CU MM 150-450 H code = 756) MEAN PLATELET VOLUME (BEAKER) 9.0 fL 9.4-12.4 L (test code = 754) NUCLEATED RED BLOOD CELLS 1 /100 WBC 0-0 H (BEAKER) (test code = 413) NEUTROPHILS RELATIVE PERCENT 83 % (BEAKER) (test code = 429) LYMPHOCYTES RELATIVE PERCENT 9 % (BEAKER) (test code = 430) MONOCYTES RELATIVE PERCENT 6 % (BEAKER) (test code = 431) EOSINOPHILS RELATIVE PERCENT 1 % (BEAKER) (test code = 432) BASOPHILS RELATIVE PERCENT 2 % (BEAKER) (test code = 437) NEUTROPHILS ABSOLUTE COUNT 3.57 K/ L 1.78-5.38 (BEAKER) (test code = 670) LYMPHOCYTES ABSOLUTE COUNT 0.37 K/ L 1.32-3.57 L (BEAKER) (test code = 414) MONOCYTES ABSOLUTE COUNT (BEAKER) 0.25 K/ L 0.30-0.82 L (test code = 415) EOSINOPHILS ABSOLUTE COUNT 0.04 K/ L 0.04-0.54 (BEAKER) (test code = 416) BASOPHILS ABSOLUTE COUNT (BEAKER) 0.08 K/ L 0.01-0.08 (test code = 417) IMMATURE GRANULOCYTES-RELATIVE 0 % 0-1 PERCENT (BEAKER) (test code = 2801) BASIC METABOLIC [id number] 05:44:00 Test Item Value Reference Range Interpretation Comments SODIUM (BEAKER) 136 meq/L 136-145 (test code = 381) POTASSIUM (BEAKER) 4.1 meq/L 3.5-5.1 (test code = 379) CHLORIDE (BEAKER) 103 meq/L 98-107 (test code = 382) CO2 (BEAKER) (test 25 meq/L 22-29 code = 355) BLOOD UREA NITROGEN 13 mg/dL 7-21 (BEAKER) (test code = 354) CREATININE (BEAKER) 0.62 mg/dL 0.57-1.25 (test code = 358) GLUCOSE RANDOM 81 mg/dL 70-105 (BEAKER) (test code = 652) CALCIUM (BEAKER) 8.8 mg/dL 8.4-10.2 (test code = 697) EGFR (BEAKER) (test 131 mL/min/1.73 ESTIM ATED GFR IS code = 1092) sq m NOT ACCURATE CREATININE CLEARANCE IN PREDICTING GLOMERULAR FILTRATION RATE . ESTIMATED GFR I S NOT APPLICABLE FOR DIALYSIS PATIEN TS. CBC W/PLT COUNT & AUTO [id number] 05:33:00 Test Item Value Reference Range Interpretation Comments WHITE BLOOD CELL COUNT (BEAKER) 3.7 K/ L 3.5-10.5 (test code = 775) RED BLOOD CELL COUNT (BEAKER) 7.54 M/ L 4.63-6.08 H (test code = 761) HEMOGLOBIN (BEAKER) (test code = 17.7 GM/DL 13.7-17.5 H 410) HEMATOCRIT (BEAKER) (test code = 57.4 % 40.1-51.0 H 411) MEAN CORPUSCULAR VOLUME (BEAKER) 76.1 fL 79.0-92.2 L (test code = 753) MEAN CORPUSCULAR HEMOGLOBIN 23.5 pg 25.7-32.2 L (BEAKER) (test code = 751) MEAN CORPUSCULAR HEMOGLOBIN CONC 30.8 GM/DL 32.3-36.5 L (BEAKER) (test code = 752) RED CELL DISTRIBUTION WIDTH 23.2 % 11.6-14.4 H (BEAKER) (test code = 412) PLATELET COUNT (BEAKER) (test 610 K/CU MM 150-450 H code = 756) MEAN PLATELET VOLUME (BEAKER) 9.3 fL 9.4-12.4 L (test code = 754) NUCLEATED RED BLOOD CELLS 1 /100 WBC 0-0 H (BEAKER) (test code = 413) NEUTROPHILS RELATIVE PERCENT 73 % (BEAKER) (test code = 429) LYMPHOCYTES RELATIVE PERCENT 13 % (BEAKER) (test code = 430) MONOCYTES RELATIVE PERCENT 8 % (BEAKER) (test code = 431) EOSINOPHILS RELATIVE PERCENT 3 % (BEAKER) (test code = 432) BASOPHILS RELATIVE PERCENT 3 % (BEAKER) (test code = 437) NEUTROPHILS ABSOLUTE COUNT 2.68 K/ L 1.78-5.38 (BEAKER) (test code = 670) LYMPHOCYTES ABSOLUTE COUNT 0.48 K/ L 1.32-3.57 L (BEAKER) (test code = 414) MONOCYTES ABSOLUTE COUNT (BEAKER) 0.29 K/ L 0.30-0.82 L (test code = 415) EOSINOPHILS ABSOLUTE COUNT 0.09 K/ L 0.04-0.54 (BEAKER) (test code = 416) BASOPHILS ABSOLUTE COUNT (BEAKER) 0.10 K/ L 0.01-0.08 H (test code = 417) IMMATURE GRANULOCYTES-RELATIVE 1 % 0-1 PERCENT (BEAKER) (test code = 2801) CBC W/PLT COUNT & AUTO [id number] 06:17:00 Test Item Value Reference Range Interpretation Comments WHITE BLOOD CELL COUNT (BEAKER) 4.4 K/ L 3.5-10.5 (test code = 775) RED BLOOD CELL COUNT (BEAKER) 7.86 M/ L 4.63-6.08 H (test code = 761) HEMOGLOBIN (BEAKER) (test code = 18.6 GM/DL 13.7-17.5 H 410) HEMATOCRIT (BEAKER) (test code = 60.9 % 40.1-51.0 H 411) MEAN CORPUSCULAR VOLUME (BEAKER) 77.5 fL 79.0-92.2 L (test code = 753) MEAN CORPUSCULAR HEMOGLOBIN 23.7 pg 25.7-32.2 L (BEAKER) (test code = 751) MEAN CORPUSCULAR HEMOGLOBIN CONC 30.5 GM/DL 32.3-36.5 L (BEAKER) (test code = 752) RED CELL DISTRIBUTION WIDTH 23.0 % 11.6-14.4 H (BEAKER) (test code = 412) PLATELET COUNT (BEAKER) (test 662 K/CU MM 150-450 H code = 756) MEAN PLATELET VOLUME (BEAKER) 9.0 fL 9.4-12.4 L (test code = 754) NUCLEATED RED BLOOD CELLS 0 /100 WBC 0-0 (BEAKER) (test code = 413) NEUTROPHILS RELATIVE PERCENT 71 % (BEAKER) (test code = 429) LYMPHOCYTES RELATIVE PERCENT 13 % (BEAKER) (test code = 430) MONOCYTES RELATIVE PERCENT 9 % (BEAKER) (test code = 431) EOSINOPHILS RELATIVE PERCENT 3 % (BEAKER) (test code = 432) BASOPHILS RELATIVE PERCENT 3 % (BEAKER) (test code = 437) NEUTROPHILS ABSOLUTE COUNT 3.09 K/ L 1.78-5.38 (BEAKER) (test code = 670) LYMPHOCYTES ABSOLUTE COUNT 0.55 K/ L 1.32-3.57 L (BEAKER) (test code = 414) MONOCYTES ABSOLUTE COUNT (BEAKER) 0.40 K/ L 0.30-0.82 (test code = 415) EOSINOPHILS ABSOLUTE COUNT 0.15 K/ L 0.04-0.54 (BEAKER) (test code = 416) BASOPHILS ABSOLUTE COUNT (BEAKER) 0.14 K/ L 0.01-0.08 H (test code = 417) IMMATURE GRANULOCYTES-RELATIVE 1 % 0-1 PERCENT (BEAKER) (test code = 2801) URINALYSIS W/ REFLEX URINE [id number] 17:45:00 Test Item Value Reference Range Interpretation Comments COLOR (BEAKER) (test code = 470) Yellow CLARITY (BEAKER) (test code = 469) Clear SPECIFIC GRAVITY UA (BEAKER) (test 1.011 1.001-1.035 code = 468) PH UA (BEAKER) (test code = 467) 6.5 5.0-8.0 PROTEIN UA (BEAKER) (test code = Negative Negative 464) GLUCOSE UA (BEAKER) (test code = Negative Negative 365) KETONES UA (BEAKER) (test code = Negative Negative 371) BILIRUBIN UA (BEAKER) (test code = Negative Negative 462) BLOOD UA (BEAKER) (test code = 461) Small Negative A NITRITE UA (BEAKER) (test code = Negative Negative 465) LEUKOCYTE ESTERASE UA (BEAKER) Negative Negative (test code = 466) UROBILINOGEN UA (BEAKER) (test code 2.0 mg/dL 0.2-1.0 H = 463) RBC UA (BEAKER) (test code = 519) 13 /HPF WBC UA (BEAKER) (test code = 520) < /HPF SQUAMOUS EPITHELIAL (BEAKER) (test < /HPF code = 516) SOURCE(BEAKER) (test code = 2795) CBC W/PLT COUNT & AUTO [id number] 10:10:00 Test Item Value Reference Range Interpretation Comments WHITE BLOOD CELL COUNT (BEAKER) 4.2 K/ L 3.5-10.5 (test code = 775) RED BLOOD CELL COUNT (BEAKER) 8.08 M/ L 4.63-6.08 H (test code = 761) HEMOGLOBIN (BEAKER) (test code = 19.2 GM/DL 13.7-17.5 H 410) HEMATOCRIT (BEAKER) (test code = 61.9 % 40.1-51.0 H 411) MEAN CORPUSCULAR VOLUME (BEAKER) 76.6 fL 79.0-92.2 L (test code = 753) MEAN CORPUSCULAR HEMOGLOBIN 23.8 pg 25.7-32.2 L (BEAKER) (test code = 751) MEAN CORPUSCULAR HEMOGLOBIN CONC 31.0 GM/DL 32.3-36.5 L (BEAKER) (test code = 752) RED CELL DISTRIBUTION WIDTH 23.5 % 11.6-14.4 H (BEAKER) (test code = 412) PLATELET COUNT (BEAKER) (test 891 K/CU MM 150-450 H code = 756) MEAN PLATELET VOLUME (BEAKER) 9.3 fL 9.4-12.4 L (test code = 754) NUCLEATED RED BLOOD CELLS 1 /100 WBC 0-0 H (BEAKER) (test code = 413) NEUTROPHILS RELATIVE PERCENT 72 % (BEAKER) (test code = 429) LYMPHOCYTES RELATIVE PERCENT 11 % (BEAKER) (test code = 430) MONOCYTES RELATIVE PERCENT 10 % (BEAKER) (test code = 431) EOSINOPHILS RELATIVE PERCENT 2 % (BEAKER) (test code = 432) BASOPHILS RELATIVE PERCENT 3 % (BEAKER) (test code = 437) NEUTROPHILS ABSOLUTE COUNT 2.98 K/ L 1.78-5.38 (BEAKER) (test code = 670) LYMPHOCYTES ABSOLUTE COUNT 0.47 K/ L 1.32-3.57 L (BEAKER) (test code = 414) MONOCYTES ABSOLUTE COUNT (BEAKER) 0.42 K/ L 0.30-0.82 (test code = 415) EOSINOPHILS ABSOLUTE COUNT 0.07 K/ L 0.04-0.54 (BEAKER) (test code = 416) BASOPHILS ABSOLUTE COUNT (BEAKER) 0.14 K/ L 0.01-0.08 H (test code = 417) IMMATURE GRANULOCYTES-RELATIVE 2 % 0-1 H PERCENT (BEAKER) (test code = 2801) [id number] 07:09:00 Test Item Value Reference Range Interpretation Comments MAGNESIUM (BEAKER) (test code = 2.2 mg/dL 1.6-2.6 627) COMPREHENSIVE METABOLIC [id number] 07:09:00 Test Item Value Reference Range Interpretation Comments TOTAL PROTEIN 5.7 gm/dL 6.0-8.3 L (BEAKER) (test code = 770) ALBUMIN (BEAKER) 3.6 g/dL 3.5-5.0 (test code = 1145) ALKALINE PHOSPHATASE 65 U/L 40-150 (BEAKER) (test code = 346) BILIRUBIN TOTAL 1.5 mg/dL 0.2-1.2 H (BEAKER) (test code = 377) SODIUM (BEAKER) (test 140 meq/L 136-145 code = 381) POTASSIUM (BEAKER) 4.2 meq/L 3.5-5.1 (test code = 379) CHLORIDE (BEAKER) 101 meq/L 98-107 (test code = 382) CO2 (BEAKER) (test 32 meq/L 22-29 H code = 355) BLOOD UREA NITROGEN 13 mg/dL 7-21 (BEAKER) (test code = 354) CREATININE (BEAKER) 0.66 mg/dL 0.57-1.25 (test code = 358) GLUCOSE RANDOM 87 mg/dL 70-105 (BEAKER) (test code = 652) CALCIUM (BEAKER) 9.6 mg/dL 8.4-10.2 (test code = 697) AST (SGOT) (BEAKER) 30 U/L 5-34 (test code = 353) ALT (SGPT) (BEAKER) 28 U/L 6-55 (test code = 347) EGFR (BEAKER) (test 122 ESTIMATE D GFR IS code = 1092) mL/min/1.73 sq NOT ACCURA TE m CREATININE CLEARANCE IN PREDICTING GLOMERULAR FILTRATION RATE . ESTIMATED GFR I S NOT APPLICABLE FOR DIALYSIS PATIEN TS. CBC W/PLT COUNT & AUTO [id number] 06:43:00 Test Item Value Reference Range Interpretation Comments WHITE BLOOD CELL COUNT (BEAKER) 3.4 K/ L 3.5-10.5 L (test code = 775) RED BLOOD CELL COUNT (BEAKER) 7.80 M/ L 4.63-6.08 H (test code = 761) HEMOGLOBIN (BEAKER) (test code = 18.6 GM/DL 13.7-17.5 H 410) HEMATOCRIT (BEAKER) (test code = 59.1 % 40.1-51.0 H 411) MEAN CORPUSCULAR VOLUME (BEAKER) 75.8 fL 79.0-92.2 L (test code = 753) MEAN CORPUSCULAR HEMOGLOBIN 23.8 pg 25.7-32.2 L (BEAKER) (test code = 751) MEAN CORPUSCULAR HEMOGLOBIN CONC 31.5 GM/DL 32.3-36.5 L (BEAKER) (test code = 752) RED CELL DISTRIBUTION WIDTH 22.9 % 11.6-14.4 H (BEAKER) (test code = 412) PLATELET COUNT (BEAKER) (test 817 K/CU MM 150-450 H code = 756) MEAN PLATELET VOLUME (BEAKER) 9.2 fL 9.4-12.4 L (test code = 754) NUCLEATED RED BLOOD CELLS 0 /100 WBC 0-0 (BEAKER) (test code = 413) NEUTROPHILS RELATIVE PERCENT 68 % (BEAKER) (test code = 429) LYMPHOCYTES RELATIVE PERCENT 13 % (BEAKER) (test code = 430) MONOCYTES RELATIVE PERCENT 11 % (BEAKER) (test code = 431) EOSINOPHILS RELATIVE PERCENT 3 % (BEAKER) (test code = 432) BASOPHILS RELATIVE PERCENT 4 % (BEAKER) (test code = 437) NEUTROPHILS ABSOLUTE COUNT 2.30 K/ L 1.78-5.38 (BEAKER) (test code = 670) LYMPHOCYTES ABSOLUTE COUNT 0.44 K/ L 1.32-3.57 L (BEAKER) (test code = 414) MONOCYTES ABSOLUTE COUNT (BEAKER) 0.38 K/ L 0.30-0.82 (test code = 415) EOSINOPHILS ABSOLUTE COUNT 0.10 K/ L 0.04-0.54 (BEAKER) (test code = 416) BASOPHILS ABSOLUTE COUNT (BEAKER) 0.12 K/ L 0.01-0.08 H (test code = 417) IMMATURE GRANULOCYTES-RELATIVE 1 % 0-1 PERCENT (BEAKER) (test code = 2801) BASIC METABOLIC [id number] 05:07:00 Test Item Value Reference Range Interpretation Comments SODIUM (BEAKER) 138 meq/L 136-145 (test code = 381) POTASSIUM (BEAKER) 5.0 meq/L 3.5-5.1 Specimen slightly (test code = 379) hemolyzed CHLORIDE (BEAKER) 101 meq/L 98-107 (test code = 382) CO2 (BEAKER) (test 30 meq/L 22-29 H code = 355) BLOOD UREA NITROGEN 12 mg/dL 7-21 (BEAKER) (test code = 354) CREATININE (BEAKER) 0.67 mg/dL 0.57-1.25 Specimen slightly (test code = 358) hemolyzed GLUCOSE RANDOM 84 mg/dL 70-105 (BEAKER) (test code = 652) CALCIUM (BEAKER) 9.4 mg/dL 8.4-10.2 (test code = 697) EGFR (BEAKER) (test 120 mL/min/1.73 ESTIM ATED GFR IS code = 1092) sq m NOT ACCURATE CREATININE CLEARANCE IN PREDICTING GLOMERULAR FILTRATION RATE . ESTIMATED GFR I S NOT APPLICABLE FOR DIALYSIS PATIEN TS. CBC W/PLT COUNT & AUTO [id number] 04:58:00 Test Item Value Reference Range Interpretation Comments WHITE BLOOD CELL COUNT (BEAKER) 4.8 K/ L 3.5-10.5 (test code = 775) RED BLOOD CELL COUNT (BEAKER) 7.77 M/ L 4.63-6.08 H (test code = 761) HEMOGLOBIN (BEAKER) (test code = 18.5 GM/DL 13.7-17.5 H 410) HEMATOCRIT (BEAKER) (test code = 59.1 % 40.1-51.0 H 411) MEAN CORPUSCULAR VOLUME (BEAKER) 76.1 fL 79.0-92.2 L (test code = 753) MEAN CORPUSCULAR HEMOGLOBIN 23.8 pg 25.7-32.2 L (BEAKER) (test code = 751) MEAN CORPUSCULAR HEMOGLOBIN CONC 31.3 GM/DL 32.3-36.5 L (BEAKER) (test code = 752) RED CELL DISTRIBUTION WIDTH 23.0 % 11.6-14.4 H (BEAKER) (test code = 412) PLATELET COUNT (BEAKER) (test 859 K/CU MM 150-450 H code = 756) MEAN PLATELET VOLUME (BEAKER) 9.3 fL 9.4-12.4 L (test code = 754) NUCLEATED RED BLOOD CELLS 0 /100 WBC 0-0 (BEAKER) (test code = 413) NEUTROPHILS RELATIVE PERCENT 69 % (BEAKER) (test code = 429) LYMPHOCYTES RELATIVE PERCENT 13 % (BEAKER) (test code = 430) MONOCYTES RELATIVE PERCENT 12 % (BEAKER) (test code = 431) EOSINOPHILS RELATIVE PERCENT 3 % (BEAKER) (test code = 432) BASOPHILS RELATIVE PERCENT 3 % (BEAKER) (test code = 437) NEUTROPHILS ABSOLUTE COUNT 3.32 K/ L 1.78-5.38 (BEAKER) (test code = 670) LYMPHOCYTES ABSOLUTE COUNT 0.61 K/ L 1.32-3.57 L (BEAKER) (test code = 414) MONOCYTES ABSOLUTE COUNT (BEAKER) 0.57 K/ L 0.30-0.82 (test code = 415) EOSINOPHILS ABSOLUTE COUNT 0.12 K/ L 0.04-0.54 (BEAKER) (test code = 416) BASOPHILS ABSOLUTE COUNT (BEAKER) 0.12 K/ L 0.01-0.08 H (test code = 417) IMMATURE GRANULOCYTES-RELATIVE 1 % 0-1 PERCENT (BEAKER) (test code = 2801) FLOW [id number] 10:48:00Flow Cytometry Report Case: [id number] Authorizing Provider: Shama Yao MD Collected: 11/20/2018 1407 Ordering Location: [address] Received: 11/20/2018 1417 Cardiovascular Pathologist: Zack Haji MD Specimen: Other BONE MARROW, FLOW CYTOMETRY:NO MONOTYPIC B CELL POPULATIONNO ABNORMAL T CELL POPULATIONNO ABNORMAL PLASMA CELL POPULATIONNO INCREASED IN BLASTSCORRELATION WITH MORPHOLOGIC FINDINGS REQUIRED [id number] crest, rightCD8, surface-[place], CD56, surface-Lambda, CD5, CD19, CD10, CD3, CD20, CD4, CD45, CD14, CD13, CD33, CD117, CD34, cKappa,cLambda, CD38, TM919Dadidqfb Viability: 95.2% Number of Events Acquired: [id number] The following populations are identified: Blasts: the dim CD45+ CD34+ blasts comprise 0.7% of total cells. The majority of these cells express CD13 and CD33 (myeloblasts). Lymphocytes: Bright CD45+ lymphocytes comprise 8.5% of total cells. T cells show a CD4:CD8 ratio of 2.2 and normal expression of the lehman T cell antigens CD3 and CD5. B cells are polytypic with a kappa:lambda ratio of 1.5 Myeloid/monocytic populations: As identified by CD45 and light scatter characteristics, granulocytes comprise the majority ofcells analyzed, and monocytes comprise 5.7% of total cells. Plasma cells: 0.1% CD138 positive plasmacells are noted with polytypic cytoplasmic light chain expression. The remaining events analyzed represent nonviable cells, non- hematolymphoid cells, and debris.These tests were developed and their perf ormance characteristics determined by [facility]. They have not been cleared or approved by the U.S. Food and Drug Administration. The FDA has determined that such clearance or approval is not necessary. It should not be regarded as investigational or for research. This laboratory is certified under the Clinical Laboratory Improvement Amendments of 1988 ("CLIA") as qualified to perform high-complexity clinical testing.CBC W/PLT COUNT & AUTO [id number] 05:06:00 Test Item Value Reference Range Interpretation Comments WHITE BLOOD CELL COUNT (BEAKER) 4.7 K/ L 3.5-10.5 (test code = 775) RED BLOOD CELL COUNT (BEAKER) 7.68 M/ L 4.63-6.08 H (test code = 761) HEMOGLOBIN (BEAKER) (test code = 18.0 GM/DL 13.7-17.5 H 410) HEMATOCRIT (BEAKER) (test code = 58.0 % 40.1-51.0 H 411) MEAN CORPUSCULAR VOLUME (BEAKER) 75.5 fL 79.0-92.2 L (test code = 753) MEAN CORPUSCULAR HEMOGLOBIN 23.4 pg 25.7-32.2 L (BEAKER) (test code = 751) MEAN CORPUSCULAR HEMOGLOBIN CONC 31.0 GM/DL 32.3-36.5 L (BEAKER) (test code = 752) RED CELL DISTRIBUTION WIDTH 22.5 % 11.6-14.4 H (BEAKER) (test code = 412) PLATELET COUNT (BEAKER) (test 894 K/CU MM 150-450 H code = 756) MEAN PLATELET VOLUME (BEAKER) 9.4 fL 9.4-12.4 (test code = 754) NUCLEATED RED BLOOD CELLS 0 /100 WBC 0-0 (BEAKER) (test code = 413) NEUTROPHILS RELATIVE PERCENT 71 % (BEAKER) (test code = 429) LYMPHOCYTES RELATIVE PERCENT 11 % (BEAKER) (test code = 430) MONOCYTES RELATIVE PERCENT 12 % (BEAKER) (test code = 431) EOSINOPHILS RELATIVE PERCENT 3 % (BEAKER) (test code = 432) BASOPHILS RELATIVE PERCENT 3 % (BEAKER) (test code = 437) NEUTROPHILS ABSOLUTE COUNT 3.36 K/ L 1.78-5.38 (BEAKER) (test code = 670) LYMPHOCYTES ABSOLUTE COUNT 0.50 K/ L 1.32-3.57 L (BEAKER) (test code = 414) MONOCYTES ABSOLUTE COUNT (BEAKER) 0.56 K/ L 0.30-0.82 (test code = 415) EOSINOPHILS ABSOLUTE COUNT 0.13 K/ L 0.04-0.54 (BEAKER) (test code = 416) BASOPHILS ABSOLUTE COUNT (BEAKER) 0.12 K/ L 0.01-0.08 H (test code = 417) IMMATURE GRANULOCYTES-RELATIVE 1 % 0-1 PERCENT (BEAKER) (test code = 2801) BASIC METABOLIC [id number] 04:56:00 Test Item Value Reference Range Interpretation Comments SODIUM (BEAKER) 136 meq/L 136-145 (test code = 381) POTASSIUM (BEAKER) 3.9 meq/L 3.5-5.1 Specimen slightly (test code = 379) hemolyzed CHLORIDE (BEAKER) 103 meq/L 98-107 (test code = 382) CO2 (BEAKER) (test 27 meq/L 22-29 code = 355) BLOOD UREA NITROGEN 10 mg/dL 7-21 (BEAKER) (test code = 354) CREATININE (BEAKER) 0.59 mg/dL 0.57-1.25 Specimen slightly (test code = 358) hemolyzed GLUCOSE RANDOM 92 mg/dL 70-105 (BEAKER) (test code = 652) CALCIUM (BEAKER) 9.0 mg/dL 8.4-10.2 (test code = 697) EGFR (BEAKER) (test 139 mL/min/1.73 ESTIM ATED GFR IS code = 1092) sq m NOT ACCURATE CREATININE CLEARANCE IN PREDICTING GLOMERULAR FILTRATION RATE . ESTIMATED GFR I S NOT APPLICABLE FOR DIALYSIS PATIEN TS. FLOW CYTOMETRY [id number] 18:33:00 Test Item Value Reference Range Interpretation Comments FLOW CYTOMETRY RESULT See Separate Report POINTER (BEAKER) (test code = 2758) FLOW CYTOMETRY AP CASE # [id number] (BEAKER) (test code = 2759) BONE MARROW PROCESS.2018-11-20 14:26:00 Test Item Value Reference Range Interpretation Comments ANATOMIC CASE# (BEAKER) (test code M19-43 = 2470) ORDERED BY DOCTOR# (BENINA) (test [place] code = 2457) PERFORMED BY DOCTOR# (BENINA) (test [place] code = 2458) CLOT RECEIVED? (BEAKER) (test code Yes = 2459) BIOPSY RECEIVED? (BEAKER) (test Yes code = 2460) CULTURE RECEIVED? (BEAKER) (test No code = 2464) FLOW RECEIVED? (BEAKER) (test code Yes = 2461) CYTOGENICS? (BEAKER) (test code = Yes 2462) MOLECULAR GENETICS? (BEAKER) (test Yes code = 2463) Slides are not good no particle(Tiera)BASIC METABOLIC [id number] 07:04:00 Test Item Value Reference Range Interpretation Comments SODIUM (BEAKER) 140 meq/L 136-145 (test code = 381) POTASSIUM (BEAKER) 4.1 meq/L 3.5-5.1 Specimen slightly (test code = 379) hemolyzed CHLORIDE (BEAKER) 105 meq/L 98-107 (test code = 382) CO2 (BEAKER) (test 29 meq/L 22-29 code = 355) BLOOD UREA NITROGEN 10 mg/dL 7-21 (BEAKER) (test code = 354) CREATININE (BEAKER) 0.57 mg/dL 0.57-1.25 Specimen slightly (test code = 358) hemolyzed GLUCOSE RANDOM 87 mg/dL 70-105 (BEAKER) (test code = 652) CALCIUM (BEAKER) 9.1 mg/dL 8.4-10.2 (test code = 697) EGFR (BEAKER) (test 144 mL/min/1.73 ESTIM ATED GFR IS code = 1092) sq m NOT ACCURATE CREATININE CLEARANCE IN PREDICTING GLOMERULAR FILTRATION RATE . ESTIMATED GFR I S NOT APPLICABLE FOR DIALYSIS PATIEN TS. CBC W/PLT COUNT & AUTO [id number] 06:19:00 Test Item Value Reference Range Interpretation Comments WHITE BLOOD CELL COUNT (BEAKER) 5.7 K/ L 3.5-10.5 (test code = 775) RED BLOOD CELL COUNT (BEAKER) 7.66 M/ L 4.63-6.08 H (test code = 761) HEMOGLOBIN (BEAKER) (test code = 18.0 GM/DL 13.7-17.5 H 410) HEMATOCRIT (BEAKER) (test code = 58.4 % 40.1-51.0 H 411) MEAN CORPUSCULAR VOLUME (BEAKER) 76.2 fL 79.0-92.2 L (test code = 753) MEAN CORPUSCULAR HEMOGLOBIN 23.5 pg 25.7-32.2 L (BEAKER) (test code = 751) MEAN CORPUSCULAR HEMOGLOBIN CONC 30.8 GM/DL 32.3-36.5 L (BEAKER) (test code = 752) RED CELL DISTRIBUTION WIDTH 22.6 % 11.6-14.4 H (BEAKER) (test code = 412) PLATELET COUNT (BEAKER) (test 929 K/CU MM 150-450 H code = 756) MEAN PLATELET VOLUME (BEAKER) 9.9 fL 9.4-12.4 (test code = 754) NUCLEATED RED BLOOD CELLS 1 /100 WBC 0-0 H (BEAKER) (test code = 413) NEUTROPHILS RELATIVE PERCENT 67 % (BEAKER) (test code = 429) LYMPHOCYTES RELATIVE PERCENT 16 % (BEAKER) (test code = 430) MONOCYTES RELATIVE PERCENT 11 % (BEAKER) (test code = 431) EOSINOPHILS RELATIVE PERCENT 3 % (BEAKER) (test code = 432) BASOPHILS RELATIVE PERCENT 2 % (BEAKER) (test code = 437) NEUTROPHILS ABSOLUTE COUNT 3.83 K/ L 1.78-5.38 (BEAKER) (test code = 670) LYMPHOCYTES ABSOLUTE COUNT 0.93 K/ L 1.32-3.57 L (BEAKER) (test code = 414) MONOCYTES ABSOLUTE COUNT (BEAKER) 0.64 K/ L 0.30-0.82 (test code = 415) EOSINOPHILS ABSOLUTE COUNT 0.18 K/ L 0.04-0.54 (BEAKER) (test code = 416) BASOPHILS ABSOLUTE COUNT (BEAKER) 0.12 K/ L 0.01-0.08 H (test code = 417) IMMATURE GRANULOCYTES-RELATIVE 1 % 0-1 PERCENT (BEAKER) (test code = 2801) BASIC METABOLIC [id number] 07:22:00 Test Item Value Reference Range Interpretation Comments SODIUM (BEAKER) 139 meq/L 136-145 (test code = 381) POTASSIUM (BEAKER) 4.2 meq/L 3.5-5.1 Specimen slightly (test code = 379) hemolyzed CHLORIDE (BEAKER) 104 meq/L 98-107 (test code = 382) CO2 (BEAKER) (test 27 meq/L 22-29 code = 355) BLOOD UREA NITROGEN 11 mg/dL 7-21 (BEAKER) (test code = 354) CREATININE (BEAKER) 0.62 mg/dL 0.57-1.25 Specimen slightly (test code = 358) hemolyzed GLUCOSE RANDOM 89 mg/dL 70-105 (BEAKER) (test code = 652) CALCIUM (BEAKER) 9.1 mg/dL 8.4-10.2 (test code = 697) EGFR (BEAKER) (test 131 mL/min/1.73 ESTIM ATED GFR IS code = 1092) sq m NOT ACCURATE CREATININE CLEARANCE IN PREDICTING GLOMERULAR FILTRATION RATE . ESTIMATED GFR I S NOT APPLICABLE FOR DIALYSIS PATIEN TS. CBC W/PLT COUNT & AUTO [id number] 07:19:00 Test Item Value Reference Range Interpretation Comments WHITE BLOOD CELL COUNT (BEAKER) 4.9 K/ L 3.5-10.5 (test code = 775) RED BLOOD CELL COUNT (BEAKER) 7.54 M/ L 4.63-6.08 H (test code = 761) HEMOGLOBIN (BEAKER) (test code = 17.7 GM/DL 13.7-17.5 H 410) HEMATOCRIT (BEAKER) (test code = 56.9 % 40.1-51.0 H 411) MEAN CORPUSCULAR VOLUME (BEAKER) 75.5 fL 79.0-92.2 L (test code = 753) MEAN CORPUSCULAR HEMOGLOBIN 23.5 pg 25.7-32.2 L (BEAKER) (test code = 751) MEAN CORPUSCULAR HEMOGLOBIN CONC 31.1 GM/DL 32.3-36.5 L (BEAKER) (test code = 752) RED CELL DISTRIBUTION WIDTH 22.3 % 11.6-14.4 H (BEAKER) (test code = 412) PLATELET COUNT (BEAKER) (test 812 K/CU MM 150-450 H code = 756) MEAN PLATELET VOLUME (BEAKER) 9.4 fL 9.4-12.4 (test code = 754) NUCLEATED RED BLOOD CELLS 0 /100 WBC 0-0 (BEAKER) (test code = 413) NEUTROPHILS RELATIVE PERCENT 67 % (BEAKER) (test code = 429) LYMPHOCYTES RELATIVE PERCENT 14 % (BEAKER) (test code = 430) MONOCYTES RELATIVE PERCENT 12 % (BEAKER) (test code = 431) EOSINOPHILS RELATIVE PERCENT 4 % (BEAKER) (test code = 432) BASOPHILS RELATIVE PERCENT 2 % (BEAKER) (test code = 437) NEUTROPHILS ABSOLUTE COUNT 3.31 K/ L 1.78-5.38 (BEAKER) (test code = 670) LYMPHOCYTES ABSOLUTE COUNT 0.68 K/ L 1.32-3.57 L (BEAKER) (test code = 414) MONOCYTES ABSOLUTE COUNT (BEAKER) 0.58 K/ L 0.30-0.82 (test code = 415) EOSINOPHILS ABSOLUTE COUNT 0.20 K/ L 0.04-0.54 (BEAKER) (test code = 416) BASOPHILS ABSOLUTE COUNT (BEAKER) 0.12 K/ L 0.01-0.08 H (test code = 417) IMMATURE GRANULOCYTES-RELATIVE 1 % 0-1 PERCENT (BEAKER) (test code = 2801) CBC W/PLT COUNT & AUTO [id number] 07:01:00 Test Item Value Reference Range Interpretation Comments WHITE BLOOD CELL COUNT (BEAKER) 4.9 K/ L 3.5-10.5 (test code = 775) RED BLOOD CELL COUNT (BEAKER) 7.74 M/ L 4.63-6.08 H (test code = 761) HEMOGLOBIN (BEAKER) (test code = 18.3 GM/DL 13.7-17.5 H 410) HEMATOCRIT (BEAKER) (test code = 57.5 % 40.1-51.0 H 411) MEAN CORPUSCULAR VOLUME (BEAKER) 74.3 fL 79.0-92.2 L (test code = 753) MEAN CORPUSCULAR HEMOGLOBIN 23.6 pg 25.7-32.2 L (BEAKER) (test code = 751) MEAN CORPUSCULAR HEMOGLOBIN CONC 31.8 GM/DL 32.3-36.5 L (BEAKER) (test code = 752) RED CELL DISTRIBUTION WIDTH 22.5 % 11.6-14.4 H (BEAKER) (test code = 412) PLATELET COUNT (BEAKER) (test 827 K/CU MM 150-450 H code = 756) MEAN PLATELET VOLUME (BEAKER) 9.6 fL 9.4-12.4 (test code = 754) NUCLEATED RED BLOOD CELLS 0 /100 WBC 0-0 (BEAKER) (test code = 413) NEUTROPHILS RELATIVE PERCENT 68 % (BEAKER) (test code = 429) LYMPHOCYTES RELATIVE PERCENT 12 % (BEAKER) (test code = 430) MONOCYTES RELATIVE PERCENT 14 % (BEAKER) (test code = 431) EOSINOPHILS RELATIVE PERCENT 3 % (BEAKER) (test code = 432) BASOPHILS RELATIVE PERCENT 2 % (BEAKER) (test code = 437) NEUTROPHILS ABSOLUTE COUNT 3.32 K/ L 1.78-5.38 (BEAKER) (test code = 670) LYMPHOCYTES ABSOLUTE COUNT 0.57 K/ L 1.32-3.57 L (BEAKER) (test code = 414) MONOCYTES ABSOLUTE COUNT (BEAKER) 0.70 K/ L 0.30-0.82 (test code = 415) EOSINOPHILS ABSOLUTE COUNT 0.16 K/ L 0.04-0.54 (BEAKER) (test code = 416) BASOPHILS ABSOLUTE COUNT (BEAKER) 0.12 K/ L 0.01-0.08 H (test code = 417) IMMATURE GRANULOCYTES-RELATIVE 1 % 0-1 PERCENT (BEAKER) (test code = 2801) BASIC METABOLIC [id number] 06:58:00 Test Item Value Reference Range Interpretation Comments SODIUM (BEAKER) 136 meq/L 136-145 (test code = 381) POTASSIUM (BEAKER) 4.2 meq/L 3.5-5.1 Specimen slightly (test code = 379) hemolyzed CHLORIDE (BEAKER) 103 meq/L 98-107 (test code = 382) CO2 (BEAKER) (test 25 meq/L 22-29 code = 355) BLOOD UREA NITROGEN 15 mg/dL 7-21 (BEAKER) (test code = 354) CREATININE (BEAKER) 0.60 mg/dL 0.57-1.25 Specimen slightly (test code = 358) hemolyzed GLUCOSE RANDOM 94 mg/dL 70-105 (BEAKER) (test code = 652) CALCIUM (BEAKER) 8.8 mg/dL 8.4-10.2 (test code = 697) EGFR (BEAKER) (test 136 mL/min/1.73 ESTIM ATED GFR IS code = 1092) sq m NOT ACCURATE CREATININE CLEARANCE IN PREDICTING GLOMERULAR FILTRATION RATE . ESTIMATED GFR I S NOT APPLICABLE FOR DIALYSIS PATIEN TS. BASIC METABOLIC [id number] 07:58:00 Test Item Value Reference Range Interpretation Comments SODIUM (BEAKER) 139 meq/L 136-145 (test code = 381) POTASSIUM (BEAKER) 4.3 meq/L 3.5-5.1 Specimen slightly (test code = 379) hemolyzed CHLORIDE (BEAKER) 104 meq/L 98-107 (test code = 382) CO2 (BEAKER) (test 28 meq/L 22-29 code = 355) BLOOD UREA NITROGEN 11 mg/dL 7-21 (BEAKER) (test code = 354) CREATININE (BEAKER) 0.57 mg/dL 0.57-1.25 Specimen slightly (test code = 358) hemolyzed GLUCOSE RANDOM 85 mg/dL 70-105 (BEAKER) (test code = 652) CALCIUM (BEAKER) 9.4 mg/dL 8.4-10.2 (test code = 697) EGFR (BEAKER) (test 144 mL/min/1.73 ESTIM ATED GFR IS code = 1092) sq m NOT ACCURATE CREATININE CLEARANCE IN PREDICTING GLOMERULAR FILTRATION RATE . ESTIMATED GFR I S NOT APPLICABLE FOR DIALYSIS PATIEN TS. CBC W/PLT COUNT & AUTO [id number] 07:02:00 Test Item Value Reference Range Interpretation Comments WHITE BLOOD CELL COUNT (BEAKER) 5.4 K/ L 3.5-10.5 (test code = 775) RED BLOOD CELL COUNT (BEAKER) 7.97 M/ L 4.63-6.08 H (test code = 761) HEMOGLOBIN (BEAKER) (test code = 19.1 GM/DL 13.7-17.5 H 410) HEMATOCRIT (BEAKER) (test code = 59.4 % 40.1-51.0 H 411) MEAN CORPUSCULAR VOLUME (BEAKER) 74.5 fL 79.0-92.2 L (test code = 753) MEAN CORPUSCULAR HEMOGLOBIN 24.0 pg 25.7-32.2 L (BEAKER) (test code = 751) MEAN CORPUSCULAR HEMOGLOBIN CONC 32.2 GM/DL 32.3-36.5 L (BEAKER) (test code = 752) RED CELL DISTRIBUTION WIDTH 22.7 % 11.6-14.4 H (BEAKER) (test code = 412) PLATELET COUNT (BEAKER) (test 873 K/CU MM 150-450 H code = 756) MEAN PLATELET VOLUME (BEAKER) 10.0 fL 9.4-12.4 (test code = 754) NUCLEATED RED BLOOD CELLS 0 /100 WBC 0-0 (BEAKER) (test code = 413) NEUTROPHILS RELATIVE PERCENT 72 % (BEAKER) (test code = 429) LYMPHOCYTES RELATIVE PERCENT 10 % (BEAKER) (test code = 430) MONOCYTES RELATIVE PERCENT 13 % (BEAKER) (test code = 431) EOSINOPHILS RELATIVE PERCENT 3 % (BEAKER) (test code = 432) BASOPHILS RELATIVE PERCENT 2 % (BEAKER) (test code = 437) NEUTROPHILS ABSOLUTE COUNT 3.90 K/ L 1.78-5.38 (BEAKER) (test code = 670) LYMPHOCYTES ABSOLUTE COUNT 0.52 K/ L 1.32-3.57 L (BEAKER) (test code = 414) MONOCYTES ABSOLUTE COUNT (BEAKER) 0.72 K/ L 0.30-0.82 (test code = 415) EOSINOPHILS ABSOLUTE COUNT 0.16 K/ L 0.04-0.54 (BEAKER) (test code = 416) BASOPHILS ABSOLUTE COUNT (BEAKER) 0.09 K/ L 0.01-0.08 H (test code = 417) IMMATURE GRANULOCYTES-RELATIVE 1 % 0-1 PERCENT (BEAKER) (test code = 2801) BASIC METABOLIC [id number] 05:00:00 Test Item Value Reference Range Interpretation Comments SODIUM (BEAKER) 138 meq/L 136-145 (test code = 381) POTASSIUM (BEAKER) 3.9 meq/L 3.5-5.1 Specimen slightly (test code = 379) hemolyzed CHLORIDE (BEAKER) 104 meq/L 98-107 (test code = 382) CO2 (BEAKER) (test 28 meq/L 22-29 code = 355) BLOOD UREA NITROGEN 13 mg/dL 7-21 (BEAKER) (test code = 354) CREATININE (BEAKER) 0.58 mg/dL 0.57-1.25 Specimen slightly (test code = 358) hemolyzed GLUCOSE RANDOM 95 mg/dL 70-105 (BEAKER) (test code = 652) CALCIUM (BEAKER) 9.1 mg/dL 8.4-10.2 (test code = 697) EGFR (BEAKER) (test 142 mL/min/1.73 ESTIM ATED GFR IS code = 1092) sq m NOT ACCURATE CREATININE CLEARANCE IN PREDICTING GLOMERULAR FILTRATION RATE . ESTIMATED GFR I S NOT APPLICABLE FOR DIALYSIS PATIEN TS. CBC W/PLT COUNT & AUTO [id number] 04:53:00 Test Item Value Reference Range Interpretation Comments WHITE BLOOD CELL COUNT (BEAKER) 4.8 K/ L 3.5-10.5 (test code = 775) RED BLOOD CELL COUNT (BEAKER) 7.77 M/ L 4.63-6.08 H (test code = 761) HEMOGLOBIN (BEAKER) (test code = 18.2 GM/DL 13.7-17.5 H 410) HEMATOCRIT (BEAKER) (test code = 58.4 % 40.1-51.0 H 411) MEAN CORPUSCULAR VOLUME (BEAKER) 75.2 fL 79.0-92.2 L (test code = 753) MEAN CORPUSCULAR HEMOGLOBIN 23.4 pg 25.7-32.2 L (BEAKER) (test code = 751) MEAN CORPUSCULAR HEMOGLOBIN CONC 31.2 GM/DL 32.3-36.5 L (BEAKER) (test code = 752) RED CELL DISTRIBUTION WIDTH 22.0 % 11.6-14.4 H (BEAKER) (test code = 412) PLATELET COUNT (BEAKER) (test 761 K/CU MM 150-450 H code = 756) MEAN PLATELET VOLUME (BEAKER) 9.9 fL 9.4-12.4 (test code = 754) NUCLEATED RED BLOOD CELLS 0 /100 WBC 0-0 (BEAKER) (test code = 413) NEUTROPHILS RELATIVE PERCENT 66 % (BEAKER) (test code = 429) LYMPHOCYTES RELATIVE PERCENT 10 % (BEAKER) (test code = 430) MONOCYTES RELATIVE PERCENT 17 % (BEAKER) (test code = 431) EOSINOPHILS RELATIVE PERCENT 4 % (BEAKER) (test code = 432) BASOPHILS RELATIVE PERCENT 2 % (BEAKER) (test code = 437) NEUTROPHILS ABSOLUTE COUNT 3.17 K/ L 1.78-5.38 (BEAKER) (test code = 670) LYMPHOCYTES ABSOLUTE COUNT 0.47 K/ L 1.32-3.57 L (BEAKER) (test code = 414) MONOCYTES ABSOLUTE COUNT (BEAKER) 0.80 K/ L 0.30-0.82 (test code = 415) EOSINOPHILS ABSOLUTE COUNT 0.21 K/ L 0.04-0.54 (BEAKER) (test code = 416) BASOPHILS ABSOLUTE COUNT (BEAKER) 0.09 K/ L 0.01-0.08 H (test code = 417) IMMATURE GRANULOCYTES-RELATIVE 1 % 0-1 PERCENT (BEAKER) (test code = 2801) BASIC METABOLIC [id number] 04:46:00 Test Item Value Reference Range Interpretation Comments SODIUM (BEAKER) 139 meq/L 136-145 (test code = 381) POTASSIUM (BEAKER) 4.0 meq/L 3.5-5.1 Specimen slightly (test code = 379) hemolyzed CHLORIDE (BEAKER) 104 meq/L 98-107 (test code = 382) CO2 (BEAKER) (test 29 meq/L 22-29 code = 355) BLOOD UREA NITROGEN 11 mg/dL 7-21 (BEAKER) (test code = 354) CREATININE (BEAKER) 0.64 mg/dL 0.57-1.25 Specimen slightly (test code = 358) hemolyzed GLUCOSE RANDOM 88 mg/dL 70-105 (BEAKER) (test code = 652) CALCIUM (BEAKER) 9.3 mg/dL 8.4-10.2 (test code = 697) EGFR (BEAKER) (test 126 mL/min/1.73 ESTIM ATED GFR IS code = 1092) sq m NOT ACCURATE CREATININE CLEARANCE IN PREDICTING GLOMERULAR FILTRATION RATE . ESTIMATED GFR I S NOT APPLICABLE FOR DIALYSIS PATIEN TS. BASIC METABOLIC [id number] 05:23:00 Test Item Value Reference Range Interpretation Comments SODIUM (BEAKER) 137 meq/L 136-145 (test code = 381) POTASSIUM (BEAKER) 4.6 meq/L 3.5-5.1 Specimen slightly (test code = 379) hemolyzed CHLORIDE (BEAKER) 104 meq/L 98-107 (test code = 382) CO2 (BEAKER) (test 26 meq/L 22-29 code = 355) BLOOD UREA NITROGEN 10 mg/dL 7-21 (BEAKER) (test code = 354) CREATININE (BEAKER) 0.61 mg/dL 0.57-1.25 Specimen slightly (test code = 358) hemolyzed GLUCOSE RANDOM 77 mg/dL 70-105 (BEAKER) (test code = 652) CALCIUM (BEAKER) 9.2 mg/dL 8.4-10.2 (test code = 697) EGFR (BEAKER) (test 134 mL/min/1.73 ESTIM ATED GFR IS code = 1092) sq m NOT ACCURATE CREATININE CLEARANCE IN PREDICTING GLOMERULAR FILTRATION RATE . ESTIMATED GFR I S NOT APPLICABLE FOR DIALYSIS PATIEN TS. CBC W/PLT COUNT & AUTO [id number] 04:57:00 Test Item Value Reference Range Interpretation Comments WHITE BLOOD CELL COUNT (BEAKER) 4.6 K/ L 3.5-10.5 (test code = 775) RED BLOOD CELL COUNT (BEAKER) 7.61 M/ L 4.63-6.08 H (test code = 761) HEMOGLOBIN (BEAKER) (test code = 17.9 GM/DL 13.7-17.5 H 410) HEMATOCRIT (BEAKER) (test code = 58.3 % 40.1-51.0 H 411) MEAN CORPUSCULAR VOLUME (BEAKER) 76.6 fL 79.0-92.2 L (test code = 753) MEAN CORPUSCULAR HEMOGLOBIN 23.5 pg 25.7-32.2 L (BEAKER) (test code = 751) MEAN CORPUSCULAR HEMOGLOBIN CONC 30.7 GM/DL 32.3-36.5 L (BEAKER) (test code = 752) RED CELL DISTRIBUTION WIDTH 22.5 % 11.6-14.4 H (BEAKER) (test code = 412) PLATELET COUNT (BEAKER) (test 601 K/CU MM 150-450 H code = 756) MEAN PLATELET VOLUME (BEAKER) 9.7 fL 9.4-12.4 (test code = 754) NUCLEATED RED BLOOD CELLS 0 /100 WBC 0-0 (BEAKER) (test code = 413) NEUTROPHILS RELATIVE PERCENT 67 % (BEAKER) (test code = 429) LYMPHOCYTES RELATIVE PERCENT 8 % (BEAKER) (test code = 430) MONOCYTES RELATIVE PERCENT 19 % (BEAKER) (test code = 431) EOSINOPHILS RELATIVE PERCENT 4 % (BEAKER) (test code = 432) BASOPHILS RELATIVE PERCENT 2 % (BEAKER) (test code = 437) NEUTROPHILS ABSOLUTE COUNT 3.06 K/ L 1.78-5.38 (BEAKER) (test code = 670) LYMPHOCYTES ABSOLUTE COUNT 0.37 K/ L 1.32-3.57 L (BEAKER) (test code = 414) MONOCYTES ABSOLUTE COUNT (BEAKER) 0.87 K/ L 0.30-0.82 H (test code = 415) EOSINOPHILS ABSOLUTE COUNT 0.18 K/ L 0.04-0.54 (BEAKER) (test code = 416) BASOPHILS ABSOLUTE COUNT (BEAKER) 0.07 K/ L 0.01-0.08 (test code = 417) IMMATURE GRANULOCYTES-RELATIVE 1 % 0-1 PERCENT ([facility]) (test code = 2801) [id number] 21:17:00 Test Item Value Reference Range Interpretation Comments ACTIVATED CLOTTING TIME 120 sec TEST ED AT [place] [address] ([facility]) (test code = [address] [place] [address]) [id number] 20:34:00 Test Item Value Reference Range Interpretation Comments ACTIVATED CLOTTING TIME 142 sec TEST ED AT [place] [address] ([facility]) (test code = [place] [address]) [id number] 17:20:00 Test Item Value Reference Range Interpretation Comments ACTIVATED CLOTTING TIME 279 sec TEST ED AT [place] [address] ([facility]) (test code = [place] [address]) [id number] 12:23:00 Test Item Value Reference Range Interpretation Comments PARTIAL THROMBOPLASTIN TIME 57.0 seconds 22.5-36.0 H ([facility]) (test code = 760) BASIC METABOLIC [id number] 05:49:00 Test Item Value Reference Range Interpretation Comments SODIUM (BEAKER) 138 meq/L 136-145 (test code = 381) POTASSIUM (BEAKER) 4.1 meq/L 3.5-5.1 (test code = 379) CHLORIDE (BEAKER) 103 meq/L 98-107 (test code = 382) CO2 (BEAKER) (test 29 meq/L 22-29 code = 355) BLOOD UREA NITROGEN 10 mg/dL 7-21 (BEAKER) (test code = 354) CREATININE (BEAKER) 0.63 mg/dL 0.57-1.25 (test code = 358) GLUCOSE RANDOM 87 mg/dL 70-105 (BEAKER) (test code = 652) CALCIUM (BEAKER) 8.9 mg/dL 8.4-10.2 (test code = 697) EGFR (BEAKER) (test 129 mL/min/1.73 ESTIM ATED GFR IS code = 1092) sq m NOT ACCURATE CREATININE CLEARANCE IN PREDICTING GLOMERULAR FILTRATION RATE . ESTIMATED GFR I S NOT APPLICABLE FOR DIALYSIS PATIEN [id number] 05:38:00 Test Item Value Reference Range Interpretation Comments PARTIAL THROMBOPLASTIN TIME 56.8 seconds 22.5-36.0 H (BEAKER) (test code = 760) CBC W/PLT COUNT & AUTO [id number] 05:34:00 Test Item Value Reference Range Interpretation Comments WHITE BLOOD CELL COUNT (BEAKER) 4.8 K/ L 3.5-10.5 (test code = 775) RED BLOOD CELL COUNT (BEAKER) 7.46 M/ L 4.63-6.08 H (test code = 761) HEMOGLOBIN (BEAKER) (test code = 17.8 GM/DL 13.7-17.5 H 410) HEMATOCRIT (BEAKER) (test code = 56.4 % 40.1-51.0 H 411) MEAN CORPUSCULAR VOLUME (BEAKER) 75.6 fL 79.0-92.2 L (test code = 753) MEAN CORPUSCULAR HEMOGLOBIN 23.9 pg 25.7-32.2 L (BEAKER) (test code = 751) MEAN CORPUSCULAR HEMOGLOBIN CONC 31.6 GM/DL 32.3-36.5 L (BEAKER) (test code = 752) RED CELL DISTRIBUTION WIDTH 21.9 % 11.6-14.4 H (BEAKER) (test code = 412) PLATELET COUNT (BEAKER) (test 684 K/CU MM 150-450 H code = 756) MEAN PLATELET VOLUME (BEAKER) 10.0 fL 9.4-12.4 (test code = 754) NUCLEATED RED BLOOD CELLS 0 /100 WBC 0-0 (BEAKER) (test code = 413) NEUTROPHILS RELATIVE PERCENT 65 % (BEAKER) (test code = 429) LYMPHOCYTES RELATIVE PERCENT 11 % (BEAKER) (test code = 430) MONOCYTES RELATIVE PERCENT 17 % (BEAKER) (test code = 431) EOSINOPHILS RELATIVE PERCENT 5 % (BEAKER) (test code = 432) BASOPHILS RELATIVE PERCENT 2 % (BEAKER) (test code = 437) NEUTROPHILS ABSOLUTE COUNT 3.14 K/ L 1.78-5.38 (BEAKER) (test code = 670) LYMPHOCYTES ABSOLUTE COUNT 0.51 K/ L 1.32-3.57 L (BEAKER) (test code = 414) MONOCYTES ABSOLUTE COUNT (BEAKER) 0.82 K/ L 0.30-0.82 (test code = 415) EOSINOPHILS ABSOLUTE COUNT 0.22 K/ L 0.04-0.54 (BEAKER) (test code = 416) BASOPHILS ABSOLUTE COUNT (BEAKER) 0.07 K/ L 0.01-0.08 (test code = 417) IMMATURE GRANULOCYTES-RELATIVE 1 % 0-1 PERCENT (BEAKER) (test code = 2801) TROPONIN [id number] 22:07:00 Test Item Value Reference Range Interpretation Comments TROPONIN I (BEAKER) (test code = 2.21 ng/mL 0.00-0.03 HH 397) Troponin I (TnI) levels must be interpreted in the context of the presenting symptoms and the clinical findings. Elevated TnI levels indicate myocardial damage, but are not specific for ischemic heart disease. Elevated TnI levels are seen in patients with other cardiac conditions (including myocarditis and congestive heart failure), and slight TnI elevations occur in patients with other conditions, including sepsis, renal failure, acidosis, acute neurological disease, and persistent tachyarrhythmia.[id number] 21:46:00 Test Item Value Reference Range Interpretation Comments PARTIAL THROMBOPLASTIN TIME 75.6 seconds 22.5-36.0 H (BEAKER) (test code = 760) [id number] 13:00:00 Test Item Value Reference Range Interpretation Comments PARTIAL THROMBOPLASTIN TIME 70.5 seconds 22.5-36.0 H (BEAKER) (test code = 760) BASIC METABOLIC [id number] 07:24:00 Test Item Value Reference Range Interpretation Comments SODIUM (BEAKER) 140 meq/L 136-145 (test code = 381) POTASSIUM (BEAKER) 4.3 meq/L 3.5-5.1 (test code = 379) CHLORIDE (BEAKER) 105 meq/L 98-107 (test code = 382) CO2 (BEAKER) (test 29 meq/L 22-29 code = 355) BLOOD UREA NITROGEN 8 mg/dL 7-21 (BEAKER) (test code = 354) CREATININE (BEAKER) 0.58 mg/dL 0.57-1.25 (test code = 358) GLUCOSE RANDOM 86 mg/dL 70-105 (BEAKER) (test code = 652) CALCIUM (BEAKER) 9.1 mg/dL 8.4-10.2 (test code = 697) EGFR (BEAKER) (test 142 mL/min/1.73 ESTIM ATED GFR IS code = 1092) sq m NOT ACCURATE CREATININE CLEARANCE IN PREDICTING GLOMERULAR FILTRATION RATE . ESTIMATED GFR I S NOT APPLICABLE FOR DIALYSIS PATIEN [id number] 06:54:00 Test Item Value Reference Range Interpretation Comments PARTIAL THROMBOPLASTIN TIME 90.8 seconds 22.5-36.0 H (BEAKER) (test code = 760) CBC W/PLT COUNT & AUTO [id number] 06:46:00 Test Item Value Reference Range Interpretation Comments WHITE BLOOD CELL COUNT (BEAKER) 5.0 K/ L 3.5-10.5 (test code = 775) RED BLOOD CELL COUNT (BEAKER) 7.59 M/ L 4.63-6.08 H (test code = 761) HEMOGLOBIN (BEAKER) (test code = 18.2 GM/DL 13.7-17.5 H 410) HEMATOCRIT (BEAKER) (test code = 58.1 % 40.1-51.0 H 411) MEAN CORPUSCULAR VOLUME (BEAKER) 76.5 fL 79.0-92.2 L (test code = 753) MEAN CORPUSCULAR HEMOGLOBIN 24.0 pg 25.7-32.2 L (BEAKER) (test code = 751) MEAN CORPUSCULAR HEMOGLOBIN CONC 31.3 GM/DL 32.3-36.5 L (BEAKER) (test code = 752) RED CELL DISTRIBUTION WIDTH 22.3 % 11.6-14.4 H (BEAKER) (test code = 412) PLATELET COUNT (BEAKER) (test 687 K/CU MM 150-450 H code = 756) MEAN PLATELET VOLUME (BEAKER) 10.0 fL 9.4-12.4 (test code = 754) NUCLEATED RED BLOOD CELLS 0 /100 WBC 0-0 (BEAKER) (test code = 413) NEUTROPHILS RELATIVE PERCENT 67 % (BEAKER) (test code = 429) LYMPHOCYTES RELATIVE PERCENT 10 % (BEAKER) (test code = 430) MONOCYTES RELATIVE PERCENT 16 % (BEAKER) (test code = 431) EOSINOPHILS RELATIVE PERCENT 5 % (BEAKER) (test code = 432) BASOPHILS RELATIVE PERCENT 1 % (BEAKER) (test code = 437) NEUTROPHILS ABSOLUTE COUNT 3.33 K/ L 1.78-5.38 (BEAKER) (test code = 670) LYMPHOCYTES ABSOLUTE COUNT 0.49 K/ L 1.32-3.57 L (BEAKER) (test code = 414) MONOCYTES ABSOLUTE COUNT (BEAKER) 0.78 K/ L 0.30-0.82 (test code = 415) EOSINOPHILS ABSOLUTE COUNT 0.25 K/ L 0.04-0.54 (BEAKER) (test code = 416) BASOPHILS ABSOLUTE COUNT (BEAKER) 0.06 K/ L 0.01-0.08 (test code = 417) IMMATURE GRANULOCYTES-RELATIVE 1 % 0-1 PERCENT (BEAKER) (test code = 2801) [id number] 20:59:00 Test Item Value Reference Range Interpretation Comments PARTIAL THROMBOPLASTIN TIME 106.1 seconds 22.5-36.0 H (BEAKER) (test code = 760) PROTHROMBIN [id number] 20:55:00 Test Item Value Reference Range Interpretation Comments PROTIME (BEAKER) (test code = 15.1 seconds 11.7-14.7 H 759) INR (BEAKER) (test code = 370) 1.2 <=5.9 RECOMMENDED COUMADIN/WARFARIN INR THERAPY RANGESSTANDARD DOSE: 2.0 - 3.0 Includes: PROPHYLAXIS forvenous thrombosis, systemic embolization; TREATMENT for venous thrombosis and/or pulmonary embolus.HIGH RISK: Target INR is 2.5-3.5 for patients with mechanical heart valves.TROPONIN [id number] 07:28:00 Test Item Value Reference Range Interpretation Comments TROPONIN I (BEAKER) (test code = 5.07 ng/mL 0.00-0.03 397) Troponin I (TnI) levels must be interpreted in the context of the presenting symptoms and the clinical findings. Elevated TnI levels indicate myocardial damage, but are not specific for ischemic heart disease. Elevated TnI levels are seen in patients with other cardiac conditions (including myocarditis and congestive heart failure), and slight TnI elevations occur in patients with other conditions, including sepsis, renal failure, acidosis, acute neurological disease, and persistent tachyarrhythmia.[id number] 07:23:00 Test Item Value Reference Range Interpretation Comments PARTIAL THROMBOPLASTIN TIME 60.5 seconds 22.5-36.0 H (BEAKER) (test code = 760) [id number] 07:19:00 Test Item Value Reference Range Interpretation Comments MAGNESIUM (BEAKER) (test code = 2.3 mg/dL 1.6-2.6 627) BASIC METABOLIC [id number] 07:19:00 Test Item Value Reference Range Interpretation Comments SODIUM (BEAKER) 139 meq/L 136-145 (test code = 381) POTASSIUM (BEAKER) 4.0 meq/L 3.5-5.1 (test code = 379) CHLORIDE (BEAKER) 106 meq/L 98-107 (test code = 382) CO2 (BEAKER) (test 28 meq/L 22-29 code = 355) BLOOD UREA NITROGEN 10 mg/dL 7-21 (BEAKER) (test code = 354) CREATININE (BEAKER) 0.58 mg/dL 0.57-1.25 (test code = 358) GLUCOSE RANDOM 91 mg/dL 70-105 (BEAKER) (test code = 652) CALCIUM (BEAKER) 8.6 mg/dL 8.4-10.2 (test code = 697) EGFR (BEAKER) (test 142 mL/min/1.73 ESTIM ATED GFR IS code = 1092) sq m NOT ACCURATE CREATININE CLEARANCE IN PREDICTING GLOMERULAR FILTRATION RATE . ESTIMATED GFR I S NOT APPLICABLE FOR DIALYSIS PATIEN TS. CBC W/PLT COUNT & AUTO [id number] 06:13:00 Test Item Value Reference Range Interpretation Comments WHITE BLOOD CELL COUNT (BEAKER) 5.0 K/ L 3.5-10.5 (test code = 775) RED BLOOD CELL COUNT (BEAKER) 7.13 M/ L 4.63-6.08 H (test code = 761) HEMOGLOBIN (BEAKER) (test code = 16.9 GM/DL 13.7-17.5 410) HEMATOCRIT (BEAKER) (test code = 55.1 % 40.1-51.0 H 411) MEAN CORPUSCULAR VOLUME (BEAKER) 77.3 fL 79.0-92.2 L (test code = 753) MEAN CORPUSCULAR HEMOGLOBIN 23.7 pg 25.7-32.2 L (BEAKER) (test code = 751) MEAN CORPUSCULAR HEMOGLOBIN CONC 30.7 GM/DL 32.3-36.5 L (BEAKER) (test code = 752) RED CELL DISTRIBUTION WIDTH 22.2 % 11.6-14.4 H (BEAKER) (test code = 412) PLATELET COUNT (BEAKER) (test 606 K/CU MM 150-450 H code = 756) MEAN PLATELET VOLUME (BEAKER) 9.6 fL 9.4-12.4 (test code = 754) NUCLEATED RED BLOOD CELLS 0 /100 WBC 0-0 (BEAKER) (test code = 413) NEUTROPHILS RELATIVE PERCENT 64 % (BEAKER) (test code = 429) LYMPHOCYTES RELATIVE PERCENT 14 % (BEAKER) (test code = 430) MONOCYTES RELATIVE PERCENT 14 % (BEAKER) (test code = 431) EOSINOPHILS RELATIVE PERCENT 6 % (BEAKER) (test code = 432) BASOPHILS RELATIVE PERCENT 1 % (BEAKER) (test code = 437) NEUTROPHILS ABSOLUTE COUNT 3.22 K/ L 1.78-5.38 (BEAKER) (test code = 670) LYMPHOCYTES ABSOLUTE COUNT 0.68 K/ L 1.32-3.57 L (BEAKER) (test code = 414) MONOCYTES ABSOLUTE COUNT (BEAKER) 0.71 K/ L 0.30-0.82 (test code = 415) EOSINOPHILS ABSOLUTE COUNT 0.28 K/ L 0.04-0.54 (BEAKER) (test code = 416) BASOPHILS ABSOLUTE COUNT (BEAKER) 0.07 K/ L 0.01-0.08 (test code = 417) IMMATURE GRANULOCYTES-RELATIVE 1 % 0-1 PERCENT (BEAKER) (test code = 2801) [id number] 06:04:00 Test Item Value Reference Range Interpretation Comments PARTIAL THROMBOPLASTIN TIME 91.5 seconds 22.5-36.0 H (BEAKER) (test code = 760) TROPONIN [id number] 00:29:00 Test Item Value Reference Range Interpretation Comments TROPONIN I (BEAKER) (test code = 5.60 ng/mL 0.00-0.03 [facility]) Troponin I (TnI) levels must be interpreted in the context of the presenting symptoms and the clinical findings. Elevated TnI levels indicate myocardial damage, but are not specific for ischemic heart disease. Elevated TnI levels are seen in patients with other cardiac conditions (including myocarditis and congestive heart failure), and slight TnI elevations occur in patients with other conditions, including sepsis, renal failure, acidosis, acute neurological disease, and persistent tachyarrhythmia.Check Serum Potassium level 2 hours after oral potassium replacement completed or 30 min after intravenous potassium replacement.[id number] 00:03:00 Test Item Value Reference Range Interpretation Comments POTASSIUM (BEAKER) (test code = 4.0 meq/L 3.5-5.1 379) Check Serum Potassium level 2 hours after oral potassium replacement completed or 30 min after intravenous potassium replacement.[id number] 00:03:00 Test Item Value Reference Range Interpretation Comments MAGNESIUM (BEAKER) (test code = 1.8 mg/dL 1.6-2.6 627) Check Serum Potassium level 2 hours after oral potassium replacement completed or 30 min after intravenous potassium replacement.TROPONIN [id number] 18:15:00 Test Item Value Reference Range Interpretation Comments TROPONIN I (BEAKER) (test code = 5.00 ng/mL 0.00-0.03 397) Troponin I (TnI) levels must be interpreted in the context of the presenting symptoms and the clinical findings. Elevated TnI levels indicate myocardial damage, but are not specific for ischemic heart disease. Elevated TnI levels are seen in patients with other cardiac conditions (including myocarditis and congestive heart failure), and slight TnI elevations occur in patients with other conditions, including sepsis, renal failure, acidosis, acute neurological disease, and persistent tachyarrhythmia.TROPONIN [id number] 12:11:00 Test Item Value Reference Range Interpretation Comments TROPONIN I (BEAKER) (test code = 4.73 ng/mL 0.00-0.03 397) Troponin I (TnI) levels must be interpreted in the context of the presenting symptoms and the clinical findings. Elevated TnI levels indicate myocardial damage, but are not specific for ischemic heart disease. Elevated TnI levels are seen in patients with other cardiac conditions (including myocarditis and congestive heart failure), and slight TnI elevations occur in patients with other conditions, including sepsis, renal failure, acidosis, acute neurological disease, and persistent tachyarrhythmia.[id number] 11:29:00 Test Item Value Reference Range Interpretation Comments ACTIVATED CLOTTING TIME 202 sec TEST ED AT [place] [address] ([facility]) (test code = LANNY Grey [place] [address]) [id number] 11:29:00 Test Item Value Reference Range Interpretation Comments ACTIVATED CLOTTING TIME 191 sec TEST ED AT [place] [address] ([facility]) (test code = LAN[place] [address]) [id number] 11:29:00 Test Item Value Reference Range Interpretation Comments ACTIVATED CLOTTING TIME 131 sec TEST ED AT [place] [address] ([facility]) (test code = [place] [address]) [id number] 07:38:00 Test Item Value Reference Range Interpretation Comments MAGNESIUM (BEAKER) (test code = 2.3 mg/dL 1.6-2.6 627) TROPONIN [id number] 06:19:00 Test Item Value Reference Range Interpretation Comments TROPONIN I ([facility]) (test code = 7.12 ng/mL 0.00-0.03 397) Troponin I (TnI) levels must be interpreted in the context of the presenting symptoms and the clinical findings. Elevated TnI levels indicate myocardial damage, but are not specific for ischemic heart disease. Elevated TnI levels are seen in patients with other cardiac conditions (including myocarditis and congestive heart failure), and slight TnI elevations occur in patients with other conditions, including sepsis, renal failure, acidosis, acute neurological disease, and persistent tachyarrhythmia.BASIC METABOLIC [id number] 06:09:00 Test Item Value Reference Range Interpretation Comments SODIUM (BEAKER) 141 meq/L 136-145 (test code = 381) POTASSIUM (BEAKER) 4.2 meq/L 3.5-5.1 (test code = 379) CHLORIDE (BEAKER) 108 meq/L 98-107 H (test code = 382) CO2 (BEAKER) (test 27 meq/L 22-29 code = 355) BLOOD UREA NITROGEN 10 mg/dL 7-21 (BEAKER) (test code = 354) CREATININE (BEAKER) 0.57 mg/dL 0.57-1.25 (test code = 358) GLUCOSE RANDOM 80 mg/dL 70-105 (BEAKER) (test code = 652) CALCIUM (BEAKER) 8.6 mg/dL 8.4-10.2 (test code = 697) EGFR (BEAKER) (test 144 mL/min/1.73 ESTIM ATED GFR IS code = 1092) sq m NOT ACCURATE CREATININE CLEARANCE IN PREDICTING GLOMERULAR FILTRATION RATE . ESTIMATED GFR I S NOT APPLICABLE FOR DIALYSIS PATIEN [id number] 06:05:00 Test Item Value Reference Range Interpretation Comments PARTIAL THROMBOPLASTIN TIME 62.6 seconds 22.5-36.0 H (BEAKER) (test code = 760) CBC W/PLT COUNT & AUTO [id number] 05:56:00 Test Item Value Reference Range Interpretation Comments WHITE BLOOD CELL COUNT (BEAKER) 5.2 K/ L 3.5-10.5 (test code = 775) RED BLOOD CELL COUNT (BEAKER) 7.33 M/ L 4.63-6.08 H (test code = 761) HEMOGLOBIN (BEAKER) (test code = 17.2 GM/DL 13.7-17.5 410) HEMATOCRIT (BEAKER) (test code = 56.2 % 40.1-51.0 H 411) MEAN CORPUSCULAR VOLUME (BEAKER) 76.7 fL 79.0-92.2 L (test code = 753) MEAN CORPUSCULAR HEMOGLOBIN 23.5 pg 25.7-32.2 L (BEAKER) (test code = 751) MEAN CORPUSCULAR HEMOGLOBIN CONC 30.6 GM/DL 32.3-36.5 L (BEAKER) (test code = 752) RED CELL DISTRIBUTION WIDTH 22.4 % 11.6-14.4 H (BEAKER) (test code = 412) PLATELET COUNT (BEAKER) (test 624 K/CU MM 150-450 H code = 756) MEAN PLATELET VOLUME (BEAKER) 9.7 fL 9.4-12.4 (test code = 754) NUCLEATED RED BLOOD CELLS 0 /100 WBC 0-0 (BEAKER) (test code = 413) NEUTROPHILS RELATIVE PERCENT 70 % (BEAKER) (test code = 429) LYMPHOCYTES RELATIVE PERCENT 9 % (BEAKER) (test code = 430) MONOCYTES RELATIVE PERCENT 15 % (BEAKER) (test code = 431) EOSINOPHILS RELATIVE PERCENT 4 % (BEAKER) (test code = 432) BASOPHILS RELATIVE PERCENT 1 % (BEAKER) (test code = 437) NEUTROPHILS ABSOLUTE COUNT 3.67 K/ L 1.78-5.38 (BEAKER) (test code = 670) LYMPHOCYTES ABSOLUTE COUNT 0.49 K/ L 1.32-3.57 L (BEAKER) (test code = 414) MONOCYTES ABSOLUTE COUNT (BEAKER) 0.78 K/ L 0.30-0.82 (test code = 415) EOSINOPHILS ABSOLUTE COUNT 0.19 K/ L 0.04-0.54 (BEAKER) (test code = 416) BASOPHILS ABSOLUTE COUNT (BEAKER) 0.05 K/ L 0.01-0.08 (test code = 417) IMMATURE GRANULOCYTES-RELATIVE 1 % 0-1 PERCENT (BEAKER) (test code = 2801) TROPONIN [id number] 01:50:00 Test Item Value Reference Range Interpretation Comments TROPONIN I (BEAKER) (test code = 8.08 ng/mL 0.00-0.03 397) Troponin I (TnI) levels must be interpreted in the context of the presenting symptoms and the clinical findings. Elevated TnI levels indicate myocardial damage, but are not specific for ischemic heart disease. Elevated TnI levels are seen in patients with other cardiac conditions (including myocarditis and congestive heart failure), and slight TnI elevations occur in patients with other conditions, including sepsis, renal failure, acidosis, acute neurological disease, and persistent tachyarrhythmia.Check Serum Potassium level 2 hours after oral potassium replacement completed or 30 min after intravenous potassium replacement.[id number] 01:00:00 Test Item Value Reference Range Interpretation Comments MAGNESIUM (BEAKER) 1.7 mg/dL 1.6-2.6 Specimen slightly (test code = 627) hemolyzed Check Serum Potassium level 2 hours after oral potassium replacement completed or 30 min after intravenous potassium replacement.[id number] 01:00:00 Test Item Value Reference Range Interpretation Comments POTASSIUM (BEAKER) 3.8 meq/L 3.5-5.1 Specimen slightly (test code = 379) hemolyzed Check Serum Potassium level 2 hours after oral potassium replacement completed or 30 min after intravenous potassium replacement.TROPONIN [id number] 20:20:00 Test Item Value Reference Range Interpretation Comments TROPONIN I (BEAKER) (test code = 6.74 ng/mL 0.00-0.03 397) Troponin I (TnI) levels must be interpreted in the context of the presenting symptoms and the clinical findings. Elevated TnI levels indicate myocardial damage, but are not specific for ischemic heart disease. Elevated TnI levels are seen in patients with other cardiac conditions (including myocarditis and congestive heart failure), and slight TnI elevations occur in patients with other conditions, including sepsis, renal failure, acidosis, acute neurological disease, and persistent tachyarrhythmia.TROPONIN [id number] 12:46:00 Test Item Value Reference Range Interpretation Comments TROPONIN I (BEAKER) (test code = 7.02 ng/mL 0.00-0.03 397) Troponin I (TnI) levels must be interpreted in the context of the presenting symptoms and the clinical findings. Elevated TnI levels indicate myocardial damage, but are not specific for ischemic heart disease. Elevated TnI levels are seen in patients with other cardiac conditions (including myocarditis and congestive heart failure), and slight TnI elevations occur in patients with other conditions, including sepsis, renal failure, acidosis, acute neurological disease, and persistent tachyarrhythmia.C. DIFFICILE GDH [id number] 10:17:00 Test Item Value Reference Range Interpretation Comments CDT TOXIN (test code Negative Negative = [id number]) CDT GDH ANTIGEN (test Negative Negative No ind ication of code = [id number]) Clostridi um difficile infection and n o colonization. Discontinue ent kvng isolation and t herapy. Testing performed by [employer] Rapid Cassette Assay. For GDH, published sensitivity of the assay is 98.7% compared to cytotoxicity testing. For Toxin AB, published sensitivity is 87.8% and specificity 99.4% compared to cytotoxicity testing.Verification of kit performance was done by the [facility] prior to clinical use.TROPONIN [id number] 10:09:00 Test Item Value Reference Range Interpretation Comments TROPONIN I (BEAKER) (test code = 7.45 ng/mL 0.00-0.03 397) Troponin I (TnI) levels must be interpreted in the context of the presenting symptoms and the clinical findings. Elevated TnI levels indicate myocardial damage, but are not specific for ischemic heart disease. Elevated TnI levels are seen in patients with other cardiac conditions (including myocarditis and congestive heart failure), and slight TnI elevations occur in patients with other conditions, including sepsis, renal failure, acidosis, acute neurological disease, and persistent tachyarrhythmia.[id number] 09:36:00 Test Item Value Reference Range Interpretation Comments PARTIAL THROMBOPLASTIN TIME 50.7 seconds 22.5-36.0 H (BEAKER) (test code = 760) TROPONIN [id number] 02:10:00 Test Item Value Reference Range Interpretation Comments TROPONIN I (BEAKER) (test code = 8.86 ng/mL 0.00-0.03 397) Troponin I (TnI) levels must be interpreted in the context of the presenting symptoms and the clinical findings. Elevated TnI levels indicate myocardial damage, but are not specific for ischemic heart disease. Elevated TnI levels are seen in patients with other cardiac conditions (including myocarditis and congestive heart failure), and slight TnI elevations occur in patients with other conditions, including sepsis, renal failure, acidosis, acute neurological disease, and persistent tachyarrhythmia.BASIC METABOLIC [id number] 01:44:00 Test Item Value Reference Range Interpretation Comments SODIUM (BEAKER) 137 meq/L 136-145 (test code = 381) POTASSIUM (BEAKER) 4.0 meq/L 3.5-5.1 Specimen slightly (test code = 379) hemolyzed CHLORIDE (BEAKER) 106 meq/L 98-107 (test code = 382) CO2 (BEAKER) (test 23 meq/L 22-29 code = 355) BLOOD UREA NITROGEN 10 mg/dL 7-21 (BEAKER) (test code = 354) CREATININE (BEAKER) 0.56 mg/dL 0.57-1.25 L Specimen slightly (test code = 358) hemolyzed GLUCOSE RANDOM 85 mg/dL 70-105 (BEAKER) (test code = 652) CALCIUM (BEAKER) 8.5 mg/dL 8.4-10.2 (test code = 697) EGFR (BEAKER) (test 147 mL/min/1.73 ESTIM ATED GFR IS code = 1092) sq m NOT ACCURATE CREATININE CLEARANCE IN PREDICTING GLOMERULAR FILTRATION RATE . ESTIMATED GFR I S NOT APPLICABLE FOR DIALYSIS PATIEN TS. [id number] 01:32:00 Test Item Value Reference Range Interpretation Comments PARTIAL THROMBOPLASTIN TIME 51.4 seconds 22.5-36.0 H (BEAKER) (test code = 760) CBC W/PLT COUNT & AUTO [id number] 01:27:00 Test Item Value Reference Range Interpretation Comments WHITE BLOOD CELL COUNT (BEAKER) 7.8 K/ L 3.5-10.5 (test code = 775) RED BLOOD CELL COUNT (BEAKER) 7.32 M/ L 4.63-6.08 H (test code = 761) HEMOGLOBIN (BEAKER) (test code = 17.3 GM/DL 13.7-17.5 410) HEMATOCRIT (BEAKER) (test code = 54.5 % 40.1-51.0 H 411) MEAN CORPUSCULAR VOLUME (BEAKER) 74.5 fL 79.0-92.2 L (test code = 753) MEAN CORPUSCULAR HEMOGLOBIN 23.6 pg 25.7-32.2 L (BEAKER) (test code = 751) MEAN CORPUSCULAR HEMOGLOBIN CONC 31.7 GM/DL 32.3-36.5 L (BEAKER) (test code = 752) RED CELL DISTRIBUTION WIDTH 21.8 % 11.6-14.4 H (BEAKER) (test code = 412) PLATELET COUNT (BEAKER) (test 627 K/CU MM 150-450 H code = 756) MEAN PLATELET VOLUME (BEAKER) 9.5 fL 9.4-12.4 (test code = 754) NUCLEATED RED BLOOD CELLS 0 /100 WBC 0-0 (BEAKER) (test code = 413) NEUTROPHILS RELATIVE PERCENT 78 % (BEAKER) (test code = 429) LYMPHOCYTES RELATIVE PERCENT 6 % (BEAKER) (test code = 430) MONOCYTES RELATIVE PERCENT 14 % (BEAKER) (test code = 431) EOSINOPHILS RELATIVE PERCENT 2 % (BEAKER) (test code = 432) BASOPHILS RELATIVE PERCENT 1 % (BEAKER) (test code = 437) NEUTROPHILS ABSOLUTE COUNT 6.09 K/ L 1.78-5.38 H (BEAKER) (test code = 670) LYMPHOCYTES ABSOLUTE COUNT 0.43 K/ L 1.32-3.57 L (BEAKER) (test code = 414) MONOCYTES ABSOLUTE COUNT (BEAKER) 1.07 K/ L 0.30-0.82 H (test code = 415) EOSINOPHILS ABSOLUTE COUNT 0.12 K/ L 0.04-0.54 (BEAKER) (test code = 416) BASOPHILS ABSOLUTE COUNT (BEAKER) 0.05 K/ L 0.01-0.08 (test code = 417) IMMATURE GRANULOCYTES-RELATIVE 1 % 0-1 PERCENT (BEAKER) (test code = 2801) TROPONIN [id number] 18:29:00 Test Item Value Reference Range Interpretation Comments TROPONIN I (BEAKER) (test code = 8.97 ng/mL 0.00-0.03 397) Troponin I (TnI) levels must be interpreted in the context of the presenting symptoms and the clinical findings. Elevated TnI levels indicate myocardial damage, but are not specific for ischemic heart disease. Elevated TnI levels are seen in patients with other cardiac conditions (including myocarditis and congestive heart failure), and slight TnI elevations occur in patients with other conditions, including sepsis, renal failure, acidosis, acute neurological disease, and persistent tachyarrhythmia.[id number] 18:19:00 Test Item Value Reference Range Interpretation Comments PARTIAL THROMBOPLASTIN TIME 48.6 seconds 22.5-36.0 H (BEAKER) (test code = 760) OXYGEN SATURATION, [id number] 16:33:00 Test Item Value Reference Range Interpretation Comments O2 SATURATION (MEASURED) (BEAKER) 77.8 % (test code = 1455) TROPONIN [id number] 10:53:00 Test Item Value Reference Range Interpretation Comments TROPONIN I (BEAKER) (test code = 9.46 ng/mL 0.00-0.03 397) Troponin I (TnI) levels must be interpreted in the context of the presenting symptoms and the clinical findings. Elevated TnI levels indicate myocardial damage, but are not specific for ischemic heart disease. Elevated TnI levels are seen in patients with other cardiac conditions (including myocarditis and congestive heart failure), and slight TnI elevations occur in patients with other conditions, including sepsis, renal failure, acidosis, acute neurological disease, and persistent tachyarrhythmia.[id number] 10:26:00 Test Item Value Reference Range Interpretation Comments PARTIAL THROMBOPLASTIN TIME 43.0 seconds 22.5-36.0 H (BEAKER) (test code = 760) [id number] 10:14:00 Test Item Value Reference Range Interpretation Comments FERRITIN (BEAKER) (test code = 361) 40 ng/mL 5-275 TROPONIN [id number] 05:00:00 Test Item Value Reference Range Interpretation Comments TROPONIN I (BEAKER) (test code = 13.63 ng/mL 0.00-0.03 HH 397) Troponin I (TnI) levels must be interpreted in the context of the presenting symptoms and the clinical findings. Elevated TnI levels indicate myocardial damage, but are not specific for ischemic heart disease. Elevated TnI levels are seen in patients with other cardiac conditions (including myocarditis and congestive heart failure), and slight TnI elevations occur in patients with other conditions, including sepsis, renal failure, acidosis, acute neurological disease, and persistent tachyarrhythmia.[id number] 04:41:00 Test Item Value Reference Range Interpretation Comments MAGNESIUM (BEAKER) 2.0 mg/dL 1.6-2.6 Specimen slightly (test code = 627) hemolyzed BASIC METABOLIC [id number] 04:41:00 Test Item Value Reference Range Interpretation Comments SODIUM (BEAKER) 138 meq/L 136-145 (test code = 381) POTASSIUM (BEAKER) 3.9 meq/L 3.5-5.1 Specimen slightly (test code = 379) hemolyzed CHLORIDE (BEAKER) 106 meq/L 98-107 (test code = 382) CO2 (BEAKER) (test 25 meq/L 22-29 code = 355) BLOOD UREA NITROGEN 10 mg/dL 7-21 (BEAKER) (test code = 354) CREATININE (BEAKER) 0.57 mg/dL 0.57-1.25 Specimen slightly (test code = 358) hemolyzed GLUCOSE RANDOM 81 mg/dL 70-105 (BEAKER) (test code = 652) CALCIUM (BEAKER) 8.8 mg/dL 8.4-10.2 (test code = 697) EGFR (BEAKER) (test 144 mL/min/1.73 ESTIM ATED GFR IS code = 1092) sq m NOT ACCURATE CREATININE CLEARANCE IN PREDICTING GLOMERULAR FILTRATION RATE . ESTIMATED GFR I S NOT APPLICABLE FOR DIALYSIS PATIEN TS. [id number] 04:17:00 Test Item Value Reference Range Interpretation Comments PARTIAL THROMBOPLASTIN TIME 38.0 seconds 22.5-36.0 H (BEAKER) (test code = 760) CBC W/PLT COUNT & AUTO [id number] 03:56:00 Test Item Value Reference Range Interpretation Comments WHITE BLOOD CELL COUNT (BEAKER) 6.1 K/ L 3.5-10.5 (test code = 775) RED BLOOD CELL COUNT (BEAKER) 7.68 M/ L 4.63-6.08 H (test code = 761) HEMOGLOBIN (BEAKER) (test code = 18.1 GM/DL 13.7-17.5 H 410) HEMATOCRIT (BEAKER) (test code = 57.6 % 40.1-51.0 H 411) MEAN CORPUSCULAR VOLUME (BEAKER) 75.0 fL 79.0-92.2 L (test code = 753) MEAN CORPUSCULAR HEMOGLOBIN 23.6 pg 25.7-32.2 L (BEAKER) (test code = 751) MEAN CORPUSCULAR HEMOGLOBIN CONC 31.4 GM/DL 32.3-36.5 L (BEAKER) (test code = 752) RED CELL DISTRIBUTION WIDTH 22.1 % 11.6-14.4 H (BEAKER) (test code = 412) PLATELET COUNT (BEAKER) (test 611 K/CU MM 150-450 H code = 756) MEAN PLATELET VOLUME (BEAKER) 9.6 fL 9.4-12.4 (test code = 754) NUCLEATED RED BLOOD CELLS 0 /100 WBC 0-0 (BEAKER) (test code = 413) NEUTROPHILS RELATIVE PERCENT 67 % (BEAKER) (test code = 429) LYMPHOCYTES RELATIVE PERCENT 10 % (BEAKER) (test code = 430) MONOCYTES RELATIVE PERCENT 21 % (BEAKER) (test code = 431) EOSINOPHILS RELATIVE PERCENT 1 % (BEAKER) (test code = 432) BASOPHILS RELATIVE PERCENT 1 % (BEAKER) (test code = 437) NEUTROPHILS ABSOLUTE COUNT 4.06 K/ L 1.78-5.38 (BEAKER) (test code = 670) LYMPHOCYTES ABSOLUTE COUNT 0.59 K/ L 1.32-3.57 L (BEAKER) (test code = 414) MONOCYTES ABSOLUTE COUNT (BEAKER) 1.25 K/ L 0.30-0.82 H (test code = 415) EOSINOPHILS ABSOLUTE COUNT 0.06 K/ L 0.04-0.54 (BEAKER) (test code = 416) BASOPHILS ABSOLUTE COUNT (BEAKER) 0.06 K/ L 0.01-0.08 (test code = 417) IMMATURE GRANULOCYTES-RELATIVE 1 % 0-1 PERCENT (BEAKER) (test code = 2801) TROPONIN [id number] 01:01:00 Test Item Value Reference Range Interpretation Comments TROPONIN I (JOSE ANTONIO) (test code = 11.29 ng/mL 0.00-0.03 397) Troponin I (TnI) levels must be interpreted in the context of the presenting symptoms and the clinical findings. Elevated TnI levels indicate myocardial damage, but are not specific for ischemic heart disease. Elevated TnI levels are seen in patients with other cardiac conditions (including myocarditis and congestive heart failure), and slight TnI elevations occur in patients with other conditions, including sepsis, renal failure, acidosis, acute neurological disease, and persistent tachyarrhythmia.TROPONIN [id number] 18:39:00 Test Item Value Reference Range Interpretation Comments TROPONIN I (JOSE ANTONIO) (test code = 14.40 ng/mL 0.00-0.03 397) Troponin I (TnI) levels must be interpreted in the context of the presenting symptoms and the clinical findings. Elevated TnI levels indicate myocardial damage, but are not specific for ischemic heart disease. Elevated TnI levels are seen in patients with other cardiac conditions (including myocarditis and congestive heart failure), and slight TnI elevations occur in patients with other conditions, including sepsis, renal failure, acidosis, acute neurological disease, and persistent tachyarrhythmia.RAD, CHEST, 1 VIEW, NON [id number] 18:37:00Reason for exam:->Post cvcShould this be performed at the bedside?->YesFINAL REPORT RAD, CHEST, 1 VIEW, NON DEPT INDICATION: Post cvc COMPARISON: None FINDINGS: Portable frontal view of the chest. IMPRESSION: Support Lines: Right IJ central venous catheter terminates over the superior vena cava. Lungs and pleura: Minimal basilar subsegmental atelectasis. No effusion or consolidation. No pneumothorax.Heart and mediastinum: Unremarkable contours.Additional findings: None. Signed: JR Lr Robert MDReport Verified Date/Time: 11/07/2018 18:37:02 Reading Location: [facility] Radiology Reading Room TROPONIN [id number] 12:56:00 Test Item Value Reference Range Interpretation Comments TROPONIN I (BEAKER) (test code = 14.12 ng/mL 0.00-0.03 397) Troponin I (TnI) levels must be interpreted in the context of the presenting symptoms and the clinical findings. Elevated TnI levels indicate myocardial damage, but are not specific for ischemic heart disease. Elevated TnI levels are seen in patients with other cardiac conditions (including myocarditis and congestive heart failure), and slight TnI elevations occur in patients with other conditions, including sepsis, renal failure, acidosis, acute neurological disease, and persistent tachyarrhythmia.[id number] 12:35:00 Test Item Value Reference Range Interpretation Comments PROTIME (BEAKER) (test code = 16.3 seconds 11.7-14.7 H 759) INR (BEAKER) (test code = 370) 1.3 <=5.9 PARTIAL THROMBOPLASTIN TIME 54.5 seconds 22.5-36.0 H (BEAKER) (test code = 760) RECOMMENDED COUMADIN/WARFARIN INR THERAPY RANGESSTANDARD DOSE: 2.0 - 3.0 Includes: PROPHYLAXIS forvenous thrombosis, systemic embolization; TREATMENT for venous thrombosis and/or pulmonary embolus.HIGH RISK: Target INR is 2.5-3.5 for patients with mechanical heart valves.PERIPHERAL BLOOD SMEAR - PATHOLOGIST [id number] 09:51:00 Test Item Value Reference Range Interpretation Comments RBC MORPHOLOGY Macro Ovalocytosis (BEAKER) (test code = 2846) RBC MORPHOLOGY Hypochromasia (BEAKER) (test code = 55424) RBC MORPHOLOGY Microcytosis (BEAKER) (test code = 08352) RBC MORPHOLOGY Polychromasia (BEAKER) (test code = 85717) RBC MORPHOLOGY Anisocytosis (BEAKER) (test code = 174064) RBC MORPHOLOGY Poikilocytosis (BEAKER) (test code = 152690) RBC MORPHOLOGY Acanthocytes (BEAKER) (test code = 186796) WBC MORPHOLOGY Reactive Lymphocytes (BEAKER) (test code = 2847) WBC MORPHOLOGY Hyposegmented Neutrophils (BEAKER) (test code = 451899) WBC MORPHOLOGY Toxic Granulation (BEAKER) (test code = 683273) WBC MORPHOLOGY Neutrophilic Vacuolization (BEAKER) (test code = 473820) PLT MORPHOLOGY Large Platelets (BEAKER) (test code = 2848) PLT MORPHOLOGY No Clumping (BEAKER) (test code = 249290) PLT MORPHOLOGY No Satellitosis (BEAKER) (test code = 883770) PLT MORPHOLOGY Giant Platelets (BEAKER) (test code = 357891) PERIPHERAL SMR Increased microcytic red REVIEW (BEAKER) blood cells. Adequate (test code = 2640) neutrophils with mild toxic changes. Moderate thrombocytosis. Cell counts confirmed. Findings may be seen in a reactive process. A myeloproliferative neoplasm cannot be ruled out. [id number] Anais Chavez MD 12 (BEAKER) (test (electronic signature) code = 2849) (MANUAL DIFFERENTIAL)[id number] 07:43:00 Test Item Value Reference Range Interpretation Comments NEUTROPHILS - REL (DIFF) (BEAKER) 74 % (test code = 1359) LYMPHOCYTES - REL (DIFF) (BEAKER) 4 % (test code = 1360) MONOCYTES - REL (DIFF) (BEAKER) 20 % (test code = 1361) EOSINOPHILS - REL (DIFF) (BEAKER) 2 % (test code = 1362) BASOPHILS - REL (DIFF) (BEAKER) 0 % (test code = 1363) NEUTROPHILS - ABS (DIFF) (BEAKER) 5.25 K/ L 1.80-8.00 (test code = 1365) LYMPHOCYTES - ABS (DIFF) (BEAKER) 0.28 K/ L 1.48-4.50 L (test code = 1366) MONOCYTES - ABS (DIFF) (BEAKER) 1.42 K/ L 0.00-1.30 H (test code = 1367) EOSINOPHILS - ABS (DIFF) (BEAKER) 0.14 K/ L 0.00-0.50 (test code = 1368) BASOPHILS - ABS (DIFF) (BEAKER) 0.00 K/ L 0.00-0.20 (test code = 1369) TOTAL COUNTED (BEAKER) (test code = 100 1351) WBC MORPHOLOGY (BEAKER) (test code Normal = 487) PLT MORPHOLOGY (BEAKER) (test code Normal = 486) RBC MORPHOLOGY (BEAKER) (test code Normal = 762) TROPONIN [id number] 05:03:00 Test Item Value Reference Range Interpretation Comments TROPONIN I (BEAKER) (test code = 22.40 ng/mL 0.00-0.03 HH 397) Troponin I (TnI) levels must be interpreted in the context of the presenting symptoms and the clinical findings. Elevated TnI levels indicate myocardial damage, but are not specific for ischemic heart disease. Elevated TnI levels are seen in patients with other cardiac conditions (including myocarditis and congestive heart failure), and slight TnI elevations occur in patients with other conditions, including sepsis, renal failure, acidosis, acute neurological disease, and persistent tachyarrhythmia.[id number] 05:02:00 Test Item Value Reference Range Interpretation Comments PARTIAL THROMBOPLASTIN TIME 44.1 seconds 22.5-36.0 H (BEAKER) (test code = 760) BASIC METABOLIC [id number] 04:53:00 Test Item Value Reference Range Interpretation Comments SODIUM (BEAKER) 139 meq/L 136-145 (test code = 381) POTASSIUM (BEAKER) 4.1 meq/L 3.5-5.1 Specimen slightly (test code = 379) hemolyzed CHLORIDE (BEAKER) 106 meq/L 98-107 (test code = 382) CO2 (BEAKER) (test 26 meq/L 22-29 code = 355) BLOOD UREA NITROGEN 8 mg/dL 7-21 (BEAKER) (test code = 354) CREATININE (BEAKER) 0.61 mg/dL 0.57-1.25 Specimen slightly (test code = 358) hemolyzed GLUCOSE RANDOM 98 mg/dL 70-105 (BEAKER) (test code = 652) CALCIUM (BEAKER) 9.1 mg/dL 8.4-10.2 (test code = 697) EGFR (BEAKER) (test 134 mL/min/1.73 ESTIM ATED GFR IS code = 1092) sq m NOT ACCURATE CREATININE CLEARANCE IN PREDICTING GLOMERULAR FILTRATION RATE . ESTIMATED GFR I S NOT APPLICABLE FOR DIALYSIS PATIEN TS. CBC W/PLT COUNT & AUTO [id number] 04:41:00 Test Item Value Reference Range Interpretation Comments WHITE BLOOD CELL COUNT (BEAKER) 7.1 K/ L 3.5-10.5 (test code = 775) RED BLOOD CELL COUNT (BEAKER) 7.94 M/ L 4.63-6.08 H (test code = 761) HEMOGLOBIN (BEAKER) (test code = 18.8 GM/DL 13.7-17.5 H 410) HEMATOCRIT (BEAKER) (test code = 59.1 % 40.1-51.0 H 411) MEAN CORPUSCULAR VOLUME (BEAKER) 74.4 fL 79.0-92.2 L (test code = 753) MEAN CORPUSCULAR HEMOGLOBIN 23.7 pg 25.7-32.2 L (BEAKER) (test code = 751) MEAN CORPUSCULAR HEMOGLOBIN CONC 31.8 GM/DL 32.3-36.5 L (BEAKER) (test code = 752) RED CELL DISTRIBUTION WIDTH 22.2 % 11.6-14.4 H (BEAKER) (test code = 412) PLATELET COUNT (BEAKER) (test 611 K/CU MM 150-450 H code = 756) MEAN PLATELET VOLUME (BEAKER) 9.6 fL 9.4-12.4 (test code = 754) NUCLEATED RED BLOOD CELLS 0 /100 WBC 0-0 (BEAKER) (test code = 413) NEUTROPHILS RELATIVE PERCENT 67 % (BEAKER) (test code = 429) LYMPHOCYTES RELATIVE PERCENT 11 % (BEAKER) (test code = 430) MONOCYTES RELATIVE PERCENT 19 % (BEAKER) (test code = 431) EOSINOPHILS RELATIVE PERCENT 1 % (BEAKER) (test code = 432) BASOPHILS RELATIVE PERCENT 1 % (BEAKER) (test code = 437) NEUTROPHILS ABSOLUTE COUNT 4.76 K/ L 1.78-5.38 (BEAKER) (test code = 670) LYMPHOCYTES ABSOLUTE COUNT 0.76 K/ L 1.32-3.57 L (BEAKER) (test code = 414) MONOCYTES ABSOLUTE COUNT (BEAKER) 1.38 K/ L 0.30-0.82 H (test code = 415) EOSINOPHILS ABSOLUTE COUNT 0.10 K/ L 0.04-0.54 (BEAKER) (test code = 416) BASOPHILS ABSOLUTE COUNT (BEAKER) 0.07 K/ L 0.01-0.08 (test code = 417) IMMATURE GRANULOCYTES-RELATIVE 1 % 0-1 PERCENT (BEAKER) (test code = 2801) TROPONIN [id number] 22:19:00 Test Item Value Reference Range Interpretation Comments TROPONIN I (BEAKER) (test code = 23.85 ng/mL 0.00-0.03 HH 397) Troponin I (TnI) levels must be interpreted in the context of the presenting symptoms and the clinical findings. Elevated TnI levels indicate myocardial damage, but are not specific for ischemic heart disease. Elevated TnI levels are seen in patients with other cardiac conditions (including myocarditis and congestive heart failure), and slight TnI elevations occur in patients with other conditions, including sepsis, renal failure, acidosis, acute neurological disease, and persistent tachyarrhythmia.[id number] 21:59:00 Test Item Value Reference Range Interpretation Comments PARTIAL THROMBOPLASTIN TIME 45.7 seconds 22.5-36.0 H (BAMAKER) (test code = 760) TROPONIN [id number] 19:33:00 Test Item Value Reference Range Interpretation Comments TROPONIN I (BAMAKER) (test code = 22.70 ng/mL 0.00-0.03 397) Troponin I (TnI) levels must be interpreted in the context of the presenting symptoms and the clinical findings. Elevated TnI levels indicate myocardial damage, but are not specific for ischemic heart disease. Elevated TnI levels are seen in patients with other cardiac conditions (including myocarditis and congestive heart failure), and slight TnI elevations occur in patients with other conditions, including sepsis, renal failure, acidosis, acute neurological disease, and persistent tachyarrhythmia.[id number] 16:57:00 Test Item Value Reference Range Interpretation Comments PARTIAL THROMBOPLASTIN TIME 38.3 seconds 22.5-36.0 H (JOSE ANTONIO) (test code = 760) Prior to initiating heparinTROPONIN [id number] 13:03:00 Test Item Value Reference Range Interpretation Comments TROPONIN I (JOSE ANTONIO) (test code = 19.82 ng/mL 0.00-0.03 397) Troponin I (TnI) levels must be interpreted in the context of the presenting symptoms and the clinical findings. Elevated TnI levels indicate myocardial damage, but are not specific for ischemic heart disease. Elevated TnI levels are seen in patients with other cardiac conditions (including myocarditis and congestive heart failure), and slight TnI elevations occur in patients with other conditions, including sepsis, renal failure, acidosis, acute neurological disease, and persistent tachyarrhythmia.[id number] 11:57:00 Test Item Value Reference Range Interpretation Comments RPR SCREEN (JOSE ANTONIO) (test code = Nonreactive Nonreactive 420) CT BRAIN WITHOUT IV CONTRAST - [id number] 11:06:00Reason for exam:->fallFINAL REPORT CT Head without contrast CLINICAL HISTORY: fall TECHNIQUE: Contiguous axial images through the head without contrast. This exam was performed according to the departmental dose optimization program which includes automated exposure control, adjustment of the mA and/or kV according to the patient size, and/or use of an iterative reconstruction technique. COMPARISON:None FINDINGS: There is no evidence of skull fracture or intracranial hemorrhage. There are recent appearing infarcts of the right perirolandic region, right inferior frontal lobe, and right temporal lobe. There is mild generalized parenchymal volume loss without hydrocephalus, midline shift, or apparent mass effect. There are atherosclerotic calcifications of the intracranial circulation. The paranasal sinuses are well- aerated. IMPRESSION: No evidence of skull fracture or intracranial hemorrhage. M ultifocal recent appearing right cerebral infarcts. If clinically warranted, an MRI of the brain could be performed for further evaluation if there are no contraindications. Signed: Melisa Odell MDReport Verified Date/Time: 11/06/2018 11:06:01 Reading Location: [address] Neuro Reading Room El ectronically signed by: MELISA ODELL M.D. on 11/06/2018 11:06 AMRAPID DRUG SCREEN, [id number] 10:11:00 Test Item Value Reference Range Interpretation Comments BARBITURATE URINE (BEAKER) (test Negative Negative code = 725) BENZODIAZEPINE SCREEN URINE (BEAKER) Negative Negative (test code = 726) COCAINE (METAB.) SCREEN (BEAKER) Negative Negative (test code = 1164) METHADONE SCREEN (BEAKER) (test code Negative Negative = 1436) OPIATE SCREEN URINE (BEAKER) (test Positive Negative A code = 734) CANNABINOID SCREEN URINE (BEAKER) Negative Negative (test code = 727) AMPH/METHAMPH SCREEN (BEAKER) (test Negative Negative code = 1438) PHENCYCLIDINE SCREEN URINE (BEAKER) Negative Negative (test code = 608) OXYCODONE SCREEN URINE (BEAKER) Negative Negative (test code = 2761) DRUG CUTOFF CONC.Cocaine 300 ng/mL Cannabinoid 50 ng/mL Benzodiazepine 200 ng/mLBarbiturate 200 ng/mLPhencyclidine 25 ng/mLOpiate 300 ng/mLMethadone 300 ng/mLAmphetamine/ 1000 ng/mL MethamphetamineOxycodone 300 ng/mLThis assay provides an unconfirmed qualitative test result for the clinical management of patients in emergency situations. Chain of custody not maintained. Some pots-seh-veundcw medications, as well as adulterants, may cause inaccurate results. Clinical correlation should be applied. A more comprehensive drug screen or confirmation of a detected drug may be performed upon request.TROPONIN [id number] 06:18:00 Test Item Value Reference Range Interpretation Comments TROPONIN I (BEAKER) (test code = 17.89 ng/mL 0.00-0.03 397) Troponin I (TnI) levels must be interpreted in the context of the presenting symptoms and the clinical findings. Elevated TnI levels indicate myocardial damage, but are not specific for ischemic heart disease. Elevated TnI levels are seen in patients with other cardiac conditions (including myocarditis and congestive heart failure), and slight TnI elevations occur in patients with other conditions, including sepsis, renal failure, acidosis, acute neurological disease, and persistent tachyarrhythmia.CBC W/PLT COUNT & AUTO DIFFERENTIAL 2018-11-06 01:48:00 Test Item Value Reference Range Interpretation Comments WHITE BLOOD CELL COUNT (BEAKER) 9.0 K/ L 3.5-10.5 (test code = 775) RED BLOOD CELL COUNT (BEAKER) 8.65 M/ L 4.63-6.08 H (test code = 761) HEMOGLOBIN (BEAKER) (test code = 20.3 GM/DL 13.7-17.5 H 410) HEMATOCRIT (BEAKER) (test code = 64.1 % 40.1-51.0 H 411) MEAN CORPUSCULAR VOLUME (BEAKER) 74.1 fL 79.0-92.2 L (test code = 753) MEAN CORPUSCULAR HEMOGLOBIN 23.5 pg 25.7-32.2 L (BEAKER) (test code = 751) MEAN CORPUSCULAR HEMOGLOBIN CONC 31.7 GM/DL 32.3-36.5 L (BEAKER) (test code = 752) RED CELL DISTRIBUTION WIDTH 22.3 % 11.6-14.4 H (BEAKER) (test code = 412) PLATELET COUNT (BEAKER) (test 762 K/CU MM 150-450 H code = 756) MEAN PLATELET VOLUME (BEAKER) 9.3 fL 9.4-12.4 L (test code = 754) NUCLEATED RED BLOOD CELLS 0 /100 WBC 0-0 (BEAKER) (test code = 413) NEUTROPHILS RELATIVE PERCENT 74 % (BEAKER) (test code = 429) LYMPHOCYTES RELATIVE PERCENT 7 % (BEAKER) (test code = 430) MONOCYTES RELATIVE PERCENT 17 % (BEAKER) (test code = 431) EOSINOPHILS RELATIVE PERCENT 1 % (BEAKER) (test code = 432) BASOPHILS RELATIVE PERCENT 2 % (BEAKER) (test code = 437) NEUTROPHILS ABSOLUTE COUNT 6.68 K/ L 1.78-5.38 H (BEAKER) (test code = 670) LYMPHOCYTES ABSOLUTE COUNT 0.60 K/ L 1.32-3.57 L (BEAKER) (test code = 414) MONOCYTES ABSOLUTE COUNT (BEAKER) 1.49 K/ L 0.30-0.82 H (test code = 415) EOSINOPHILS ABSOLUTE COUNT 0.07 K/ L 0.04-0.54 (BEAKER) (test code = 416) BASOPHILS ABSOLUTE COUNT (BEAKER) 0.14 K/ L 0.01-0.08 H (test code = 417) IMMATURE GRANULOCYTES-RELATIVE 1 % 0-1 PERCENT (BEAKER) (test code = 2801) TROPONIN [id number] 01:24:00 Test Item Value Reference Range Interpretation Comments TROPONIN I (BEAKER) (test code = 18.49 ng/mL 0.00-0.03 HH 397) Troponin I (TnI) levels must be interpreted in the context of the presenting symptoms and the clinical findings. Elevated TnI levels indicate myocardial damage, but are not specific for ischemic heart disease. Elevated TnI levels are seen in patients with other cardiac conditions (including myocarditis and congestive heart failure), and slight TnI elevations occur in patients with other conditions, including sepsis, renal failure, acidosis, acute neurological disease, and persistent tachyarrhythmia.BASIC METABOLIC [id number] 01:05:00 Test Item Value Reference Range Interpretation Comments SODIUM (BEAKER) 139 meq/L 136-145 (test code = 381) POTASSIUM (BEAKER) 4.2 meq/L 3.5-5.1 Specimen slightly (test code = 379) hemolyzed CHLORIDE (BEAKER) 107 meq/L 98-107 (test code = 382) CO2 (BEAKER) (test 24 meq/L 22-29 code = 355) BLOOD UREA NITROGEN 12 mg/dL 7-21 (BEAKER) (test code = 354) CREATININE (BEAKER) 0.69 mg/dL 0.57-1.25 Specimen slightly (test code = 358) hemolyzed GLUCOSE RANDOM 132 mg/dL 70-105 H (BEAKER) (test code = 652) CALCIUM (BEAKER) 9.2 mg/dL 8.4-10.2 (test code = 697) EGFR (BEAKER) (test 116 mL/min/1.73 ESTIM ATED GFR IS code = 1092) sq m NOT ACCURATE CREATININE CLEARANCE IN PREDICTING GLOMERULAR FILTRATION RATE . ESTIMATED GFR I S NOT APPLICABLE FOR DIALYSIS PATIEN TS. TROPONIN [id number] 21:07:00 Test Item Value Reference Range Interpretation Comments TROPONIN I (BEAKER) (test code = 10.27 ng/mL 0.00-0.03 397) Troponin I (TnI) levels must be interpreted in the context of the presenting symptoms and the clinical findings. Elevated TnI levels indicate myocardial damage, but are not specific for ischemic heart disease. Elevated TnI levels are seen in patients with other cardiac conditions (including myocarditis and congestive heart failure), and slight TnI elevations occur in patients with other conditions, including sepsis, renal failure, acidosis, acute neurological disease, and persistent tachyarrhythmia.TROPONIN [id number] 18:23:00 Test Item Value Reference Range Interpretation Comments TROPONIN I (BEAKER) (test code = 4.19 ng/mL 0.00-0.03 397) Troponin I (TnI) levels must be interpreted in the context of the presenting symptoms and the clinical findings. Elevated TnI levels indicate myocardial damage, but are not specific for ischemic heart disease. Elevated TnI levels are seen in patients with other cardiac conditions (including myocarditis and congestive heart failure), and slight TnI elevations occur in patients with other conditions, including sepsis, renal failure, acidosis, acute neurological disease, and persistent tachyarrhythmia.[id number] 15:55:00 Test Item Value Reference Range Interpretation Comments MAGNESIUM (BEAKER) 1.7 mg/dL 1.6-2.6 Specimen slightly (test code = 627) hemolyzed VITAMIN B12 AND [id number] 15:36:00 Test Item Value Reference Range Interpretation Comments VITAMIN B12 (BEAKER) (test code = 261 pg/mL 213-816 774) FOLATE (BEAKER) (test code = 362) 8.4 ng/mL >=7.0 TSH/FREE T4 IF [id number] 14:53:00 Test Item Value Reference Range Interpretation Comments THYROID STIMULATING HORMONE 1.44 uIU/mL 0.35-4.94 (BEAKER) (test code = 772) URINALYSIS WITH MICROSCOPIC IF [id number] 14:28:00 Test Item Value Reference Range Interpretation Comments COLOR (BEAKER) (test code = 470) Yellow CLARITY (BEAKER) (test code = 469) Clear SPECIFIC GRAVITY UA (BEAKER) (test 1.045 1.001-1.035 H code = 468) PH UA (BEAKER) (test code = 467) 6.5 5.0-8.0 PROTEIN UA (BEAKER) (test code = Negative Negative 464) GLUCOSE UA (BEAKER) (test code = Negative Negative 365) KETONES UA (BEAKER) (test code = Trace Negative A 371) BILIRUBIN UA (BEAKER) (test code = Negative Negative 462) BLOOD UA (BEAKER) (test code = 461) Negative Negative NITRITE UA (BEAKER) (test code = Negative Negative 465) LEUKOCYTE ESTERASE UA (BEAKER) Negative Negative (test code = 466) UROBILINOGEN UA (BEAKER) (test code 0.2 mg/dL 0.2-1.0 = 463) SOURCE(BEAKER) (test code = 2795) TROPONIN [id number] 14:24:00 Test Item Value Reference Range Interpretation Comments TROPONIN I (BEAKER) (test code = 1.64 ng/mL 0.00-0.03 HH 397) Troponin I (TnI) levels must be interpreted in the context of the presenting symptoms and the clinical findings. Elevated TnI levels indicate myocardial damage, but are not specific for ischemic heart disease. Elevated TnI levels are seen in patients with other cardiac conditions (including myocarditis and congestive heart failure), and slight TnI elevations occur in patients with other conditions, including sepsis, renal failure, acidosis, acute neurological disease, and persistent tachyarrhythmia.HEMOGLOBIN [id number] 14:11:00 Test Item Value Reference Range Interpretation Comments HEMOGLOBIN A1C (BEAKER) (test code = 5.3 % 4.3-6.1 368) LIPID [id number] 14:08:00 Test Item Value Reference Range Interpretation Comments TRIGLYCERIDES (BEAKER) (test code = 77 mg/dL 540) CHOLESTEROL (BEAKER) (test code = 164 mg/dL 631) HDL CHOLESTEROL (BEAKER) (test code 36 mg/dL = 976) LDL CHOLESTEROL CALCULATED (BEAKER) 113 mg/dL (test code = 633) Triglyceride Reference Range: Low Risk <150 Borderline 150-199 High Risk 200-499 Very High Risk >=500Cholesterol Reference Range: Low Risk <200 Borderline 200-239 High Risk >240HDL Cholesterol Reference Range: Low Risk >=60 High Risk <40LDL Cholesterol Reference Range: Optimal <100 Near Optimal 100-129 Borderline 130-159 High 160-189 Very High >=190BASIC METABOLIC [id number] 14:08:00 Test Item Value Reference Range Interpretation Comments SODIUM (BEAKER) 137 meq/L 136-145 (test code = 381) POTASSIUM (BEAKER) 3.9 meq/L 3.5-5.1 (test code = 379) CHLORIDE (BEAKER) 106 meq/L 98-107 (test code = 382) CO2 (BEAKER) (test 19 meq/L 22-29 L code = 355) BLOOD UREA NITROGEN 11 mg/dL 7-21 (BEAKER) (test code = 354) CREATININE (BEAKER) 0.61 mg/dL 0.57-1.25 (test code = 358) GLUCOSE RANDOM 134 mg/dL 70-105 H (BEAKER) (test code = 652) CALCIUM (BEAKER) 9.4 mg/dL 8.4-10.2 (test code = 697) EGFR (BEAKER) (test 134 mL/min/1.73 ESTIM ATED GFR IS code = 1092) sq m NOT ACCURATE CREATININE CLEARANCE IN PREDICTING GLOMERULAR FILTRATION RATE . ESTIMATED GFR I S NOT APPLICABLE FOR DIALYSIS PATIEN TS. CBC W/PLT COUNT & AUTO [id number] 14:02:00 Test Item Value Reference Range Interpretation Comments WHITE BLOOD CELL COUNT (BEAKER) 7.2 K/ L 3.5-10.5 (test code = 775) RED BLOOD CELL COUNT (BEAKER) 8.36 M/ L 4.63-6.08 H (test code = 761) HEMOGLOBIN (BEAKER) (test code = 19.8 GM/DL 13.7-17.5 H 410) HEMATOCRIT (BEAKER) (test code = 61.1 % 40.1-51.0 H 411) MEAN CORPUSCULAR VOLUME (BEAKER) 73.1 fL 79.0-92.2 L (test code = 753) MEAN CORPUSCULAR HEMOGLOBIN 23.7 pg 25.7-32.2 L (BEAKER) (test code = 751) MEAN CORPUSCULAR HEMOGLOBIN CONC 32.4 GM/DL 32.3-36.5 (BEAKER) (test code = 752) RED CELL DISTRIBUTION WIDTH 22.2 % 11.6-14.4 H (BEAKER) (test code = 412) PLATELET COUNT (BEAKER) (test 692 K/CU MM 150-450 H code = 756) MEAN PLATELET VOLUME (BEAKER) 9.4 fL 9.4-12.4 (test code = 754) NUCLEATED RED BLOOD CELLS 0 /100 WBC 0-0 (BEAKER) (test code = 413) NEUTROPHILS RELATIVE PERCENT 78 % (BEAKER) (test code = 429) LYMPHOCYTES RELATIVE PERCENT 5 % (BEAKER) (test code = 430) MONOCYTES RELATIVE PERCENT 14 % (BEAKER) (test code = 431) EOSINOPHILS RELATIVE PERCENT 1 % (BEAKER) (test code = 432) BASOPHILS RELATIVE PERCENT 1 % (BEAKER) (test code = 437) NEUTROPHILS ABSOLUTE COUNT 5.60 K/ L 1.78-5.38 H (BEAKER) (test code = 670) LYMPHOCYTES ABSOLUTE COUNT 0.38 K/ L 1.32-3.57 L (BEAKER) (test code = 414) MONOCYTES ABSOLUTE COUNT (BEAKER) 1.02 K/ L 0.30-0.82 H (test code = 415) EOSINOPHILS ABSOLUTE COUNT 0.05 K/ L 0.04-0.54 (BEAKER) (test code = 416) BASOPHILS ABSOLUTE COUNT (BEAKER) 0.09 K/ L 0.01-0.08 H (test code = 417) IMMATURE GRANULOCYTES-RELATIVE 1 % 0-1 PERCENT (BEAKER) (test code = 2807)
[2020-05-21] MEDS ORDERED: FENTANYL CITR 100 MCG/2 ML ONE (23:21)
[2020-05-21] MEDS ORDERED: ONDANSETRON 4 MG/2 ML VIAL ONE (23:21)
[2020-05-21] MEDS ORDERED: NA CHLORIDE 0.9% 1,000 ML ONE (23:21)
[2020-05-21 23:53] LABS: Absolute Lymphocytes (CBC) 0.8 K/uL (0.7-4.9); Basophils % 0.2 % (0-1.3); Hematocrit 43.1 % (39.6-49.0); Lymphocytes % 19.3 % (15.3-44.8); MPV 9.4 fL (7.6-11.3); RBC Red Blood Cell Count 4.62 M/uL (4.33-5.43)
[2020-05-21 23:54] LABS: Protime INR 1.26
[2020-05-22 00:08] LABS: ALT/SGPT 35 U/L (12-78); AST/SGOT 29 U/L (15-37); Albumin 3.4 g/dL (3.4-5.0); Alkaline Phosphatase 87 U/L (45-117); BUN Blood Urea Nitrogen 10 mg/dL (7-18); Bicarbonate 29 mmol/L (21-32); Bilirubin Direct 0.2 mg/dL (0-0.2); Bilirubin Total 0.7 mg/dL (0.2-1.0); Glucose Level 138 mg/dL (74-106); Magnesium 2.2 mg/dL (1.8-2.4); NT PRO-BNP 154 pg/mL (<125); Potassium 3.8 mmol/L (3.5-5.1); Protein, Total 6.6 g/dL (6.4-8.2); Sodium Level 141 mmol/L (136-145); Troponin (Emerg Dept Use Only) < 0.02 ng/mL (0.0-0.045)
--- NOTE | 2020-05-22 00:31 | EDPHYS ---
Physician Documentation [facility] Name: Gurvinder Ch Age: 64 yrs Sex: Male : 1955 Arrival Date: 05/21/2020 Time: 22:54 Bed 8 Private MD: Bandar Schofield HPI: 05/21 23:03 This 64 yrs old Male presents to ER via EMS with complaints of Leg Injury - jose g LLE. 23:03 The patient presents with decreased range of motion, a deformity, pain. The complaints jose g affect the lateral aspect of left calf, left lateral ankle, medial aspect of left calf, left medial ankle, left smith and anterior aspect of left ankle. Context: The problem was sustained at home. Onset: The symptoms/episode began/occurred just prior to arrival. Modifying factors: The symptoms are alleviated by nothing. the symptoms are aggravated by movement, weight bearing, bending knee. Associated signs and symptoms: The patient has no apparent associated signs or symptoms. Treatment prior to arrival includes: no previous treatment, elevation of the extremity. Severity of symptoms: At their worst the symptoms were mild, moderate, in the emergency department the symptoms are unchanged. The patient has not experienced similar symptoms in the past. Historical: - Allergies: 22:58 No Known Allergies; mt2 - Home Meds: 05/22 00:55 multivitamin oral tab daily [Active]; Plavix 75 mg Oral tab for Myocardial Infarction mt2 Prevention [Active]; citalopram 20 mg tab 2 tabs once daily for Anxiety with Depression [Active]; ruxolitinib oral oral 1 tab 2 times per day for Polycythemia Vera [Active]; omeprazole 20 mg Oral cpDR 1 cap once daily for Gastroesophageal Reflux [Active]; aspirin 81 mg Oral chew 1 tab once daily for Myocardial Infarction Prevention [Active]; Lipitor 80 mg Oral tab for Hyperlipidemia [Active]; Eliquis 5 mg oral tab 1 tab 2 times per day for POLYCYTHEMIA VERA [Active]; - PMHx: 05/21 22:58 Myocardial infarction; CVA; mt2 - PSHx: 22:58 Hernia repair; mt2 - Immunization history:: Adult Immunizations up to date. - Social history:: Smoking status: Patient reports the use of cigarette tobacco products, cigars, Patient uses alcohol, occasionally. - Family history:: not pertinent. ROS: 23:03 Constitutional: Negative for fever, chills, and weight loss, Eyes: Negative for injury, jose g pain, redness, and discharge, ENT: Negative for injury, pain, and discharge, Neck: Negative for injury, pain, and swelling, Cardiovascular: Negative for chest pain, palpitations, and edema, Respiratory: Negative for shortness of breath, cough, wheezing, and pleuritic chest pain, Abdomen/GI: Negative for abdominal pain, nausea, vomiting, diarrhea, and constipation, Back: Negative for injury and pain, : Negative for injury, bleeding, discharge, and swelling, Skin: Negative for injury, rash, and discoloration, Neuro: Negative for headache, weakness, numbness, tingling, and seizure, Psych: Negative for depression, anxiety, suicide ideation, homicidal ideation, and hallucinations, Allergy/Immunology: Negative for hives, rash, and allergies, Endocrine: Negative for neck swelling, polydipsia, polyuria, polyphagia, and marked weight changes, Hematologic/Lymphatic: Negative for swollen nodes, abnormal bleeding, and unusual bruising. 23:03 MS/extremity: Positive for decreased range of motion, pain, swelling, tenderness, of the lateral aspect of left calf, left lateral ankle, left calf, medial aspect of left calf, left medial ankle, left smith and anterior aspect of left ankle. Exam: 23:03 Constitutional: This is a well developed, well nourished patient who is awake, alert, jose g and in no acute distress. Head/Face: Normocephalic, atraumatic. Eyes: Pupils equal round and reactive to light, extra-ocular motions intact. Lids and lashes normal. Conjunctiva and sclera are non-icteric and not injected. Cornea within normal limits. Periorbital areas with no swelling, redness, or edema. ENT: Nares patent. No nasal discharge, no septal abnormalities noted. Tympanic membranes are normal and external auditory canals are clear. Oropharynx with no redness, swelling, or masses, exudates, or evidence of obstruction, uvula midline. Mucous membranes moist. Neck: Trachea midline, no thyromegaly or masses palpated, and no cervical lymphadenopathy. Supple, full range of motion without nuchal rigidity, or vertebral point tenderness. No Meningismus. Chest/axilla: Normal chest wall appearance and motion. Nontender with no deformity. No lesions are appreciated. Cardiovascular: Regular rate and rhythm with a normal S1 and S2. No gallops, murmurs, or rubs. Normal PMI, no JVD. No pulse deficits. Respiratory: Lungs have equal breath sounds bilaterally, clear to auscultation and percussion. No rales, rhonchi or wheezes noted. No increased work of breathing, no retractions or nasal flaring. Abdomen/GI: Soft, non-tender, with normal bowel sounds. No distension or tympany. No guarding or rebound. No evidence of tenderness throughout. Back: No spinal tenderness. No costovertebral tenderness. Full range of motion. Skin: Warm, dry with normal turgor. Normal color with no rashes, no lesions, and no evidence of cellulitis. Neuro: Awake and alert, GCS 15, oriented to person, place, time, and situation. Cranial nerves II-XII grossly intact. Motor strength 5/5 in all extremities. Sensory grossly intact. Cerebellar exam normal. Normal gait. Psych: Awake, alert, with orientation to person, place and time. Behavior, mood, and affect are within normal limits. 23:03 Musculoskeletal/extremity: Extremities: decreased ROM, pain, swelling, tenderness, ROM: limited active range of motion, limited passive range of motion, Circulation is intact in all extremities. Sensation intact. Compartment Syndrome exam of affected extremity: is normal. Joints: the left knee displays ligament laxity, limited range of motion, pain at rest, painful range of motion, tenderness, Weight bearing: is unable to bear weight, DVT Exam: negative Homans' sign noted on exam, no appreciated bluish discoloration, no erythema, no increased warmth, pain, swelling, tenderness. 23:26 ECG was reviewed by the Attending Physician. jose g Vital Signs: 22:54 BP 98 / 54; Pulse 80; Resp 16; Temp 97.; Pulse Ox 97% ; Weight 99.79 kg; Pain 10/10; mt2 23:33 BP 108 / 51; Pulse 80; Resp 16; Pulse Ox 97% on R/A; Pain 8/; mt2 05/22 00:34 BP 117 / 83; Pulse 80; Resp 16; Pulse Ox 98% on 2 lpm NC; Pain 10/; mt2 01:35 BP 114 / 71; Pulse 82; Resp 16; Temp 97.9(O); Pulse Ox 97% 2 lpm ; Pain 4/10; mt2 NIH Stroke Scale Scores: 05/21 23:03 NIHSS Score: 0 jose g MDM: 22:56 Patient medically screened. jose g 23:06 Differential diagnosis: dislocation, closed fracture, contusion, abrasion. Data jose g reviewed: vital signs, nurses notes, lab test result(s), EKG, radiologic studies, CT scan, plain films. Data interpreted: campus monitor: rate is 80 beats/min, rhythm is normal sinus rhythm, Pulse oximetry: on room air is 97 %. Test interpretation: by ED physician or midlevel provider: ECG, plain radiologic studies. Counseling: I had a detailed discussion with the patient and/or guardian regarding: the historical points, exam findings, and any diagnostic results supporting the discharge/admit diagnosis, lab results, radiology results, the need to transfer to another facility, for higher level of care, [facility] does not immediately have the required specialist. 05/22 00:26 ED course: discussed fracture, will transfer to [place] , pt prefers. [facility] 05/21 23:03 Order name: Basic Metabolic Panel [facility] 05/21 23:03 Order name: CBC with Diff; Complete Time: 00:05 [facility] 05/21 23:03 Order name: LFT's [facility] 05/21 23:03 Order name: Magnesium [facility] 05/21 23:03 Order name: NT PRO-BNP [facility] 05/21 23:03 Order name: PT-INR; Complete Time: 00:05 [facility] 05/21 23:03 Order name: Troponin (emerg Dept Use Only) [facility] 05/21 23:03 Order name: Tib Fib Left XRAY [facility] 05/21 23:03 Order name: EKG; Complete Time: 23:03 [facility] 05/21 23:03 Order name: Cardiac monitoring; Complete Time: 23:08 [facility] 05/21 23:03 Order name: EKG - Nurse/Tech; Complete Time: 23:26 [facility] 05/21 23:03 Order name: IV Saline Lock; Complete Time: 23:07 [facility] 05/21 23:03 Order name: Labs collected and sent; Complete Time: 23:07 [facility] 05/21 23:03 Order name: O2 Per Protocol; Complete Time: 23:07 [facility] 05/21 23:03 Order name: O2 Sat Monitoring; Complete Time: 23:07 [facility] 05/21 23:03 Order name: Ice pack; Complete Time: 23:31 [facility] 05/22 00:25 Order name: Splint - Ankle: Orthoglass: Stirrup; Complete Time: 00:28 [facility] EC/02 23:26 Rate is 88 beats/min. Rhythm is regular. QRS [place] is Normal. MO interval is normal. QRS jose g interval is normal. QT interval is normal. No Q waves. T waves are Normal. No ST changes noted. Clinical impression: NSR w/ Non-specific ST/T Changes and No evidence of ischemia. Interpreted by me. Reviewed by me. Administered Medications: 23:10 Drug: NS 0.9% 1000 ml Route: IV; Rate: 125 ml/hr; Site: right antecubital; ca2 23:48 Follow up: Response: No adverse reaction ca2 05/22 01:38 Follow up: Response: No adverse reaction; IV Status: Completed infusion ca2 05/21 23:10 Drug: fentaNYL (PF) 25 mcg Route: IVP; Site: right antecubital; mt2 23:48 Follow up: Response: No adverse reaction; Pain is unchanged, physician notified mt2 23:10 Drug: Zofran (Ondansetron) 4 mg Route: IVP; Site: right antecubital; mt2 23:48 Follow up: Response: No adverse reaction; Nausea is decreased mt2 23:49 Drug: fentaNYL (PF) 25 mcg Route: IVP; Site: right antecubital; ca2 05/22 00:32 Follow up: Response: No adverse reaction; Pain is unchanged, physician notified mt2 00:32 Drug: fentaNYL (PF) 50 mcg Route: IVP; Site: right antecubital; mt2 00:56 Follow up: Response: No adverse reaction; Pain is decreased ca2 Disposition: 05/22/20 00:30 Transfer ordered to [facility]. Diagnosis are Fall due to bumping against object, Displaced segmental fracture of shaft of left fibula, Displaced segmental fracture of shaft of left tibia, Weakness. - Reason for transfer: Higher level of care. - Accepting physician is to [facility]. - Condition is Stable. - Problem is new. - Symptoms have improved. NIH Stroke Scale - NIH Stroke Score Date: 05/21/2020 Time: 23:03 Total Score = 0 1a. Level of Consciousness (LOC) - 0(Alert) 1b. Level of Consciousness (LOC) (Year \T\ Age) - 0(Both) 1c. LOC Commands (Open \T\ Closes Eyes/Cookie Mixer Helper) - 0(Both) 2. Best Gaze (Lateral Gaze Paresis) - 0(Normal) 3. Visual Field Loss - 0(No visual loss) 4. Facial Palsy - 0(Normal) 5a. Left Arm: Motor (10-second hold) - 0(No drift) 5b. Right Arm: Motor (10-second hold) - 0(No drift) 6a. Left Leg: Motor (5-second hold - always test supine) - 0(No drift) 6b. Right Leg: Motor (5-second hold - always test supine) - 0(No drift) 7. Limb Ataxia (finger/nose \T\ heel/smith - test with eyes open) - 0(Absent) 8. Sensory Loss (pinprick arms/legs/face) - 0(Normal) 9. Best Language: Aphasia (description/naming/reading) - 0(No aphasia) 10. Dysarthria (speech clarity - read or repeat words) - 0(Normal) 11. Extinction and Inattention (visual/tactile/auditory/spatial/personal) - 0(No abnormality) Initials: [facility] Signatures: Dispatcher [employer] [facility] Bandar Cooley MD MD cha Attema, Lee, CAMERA MAKER-C CAMERA MAKER-Cla1 Lisa Holland RN RN mt2 Corrections: (The following items were deleted from the chart) 00:23 09 23:03 Chest Single View+RAD.RAD.BRZ ordered. [facility] 05/22 00:33 00:30 05/22/2020 00:30 Transfer ordered to [facility]. Diagnosis jose g is Fall due to bumping against object; Displaced segmental fracture of shaft of left fibula; Displaced segmental fracture of shaft of left tibia. Reason for transfer: Higher level of care. Accepting physician is to [facility]. Condition is Stable. Problem is new. Symptoms have improved. jose g 01:38 00:33 05/22/2020 00:30 Transfer ordered to [facility]. Diagnosis mt2 is Fall due to bumping against object; Displaced segmental fracture of shaft of left fibula; Displaced segmental fracture of shaft of left tibia; Weakness. Reason for transfer: Higher level of care. Accepting physician is to [facility]. Condition is Stable. Problem is new. Symptoms have improved. jose g
--- NOTE | 2020-05-22 00:31 | ER ---
Nurse's Notes [facility] Name: Gurvinder Ch Age: 64 yrs Sex: Male : 1955 Arrival Date: 05/21/2020 Time: 22:54 Bed 8 Private MD: Diagnosis: Fall due to bumping against object;Displaced segmental fracture of shaft of left fibula;Displaced segmental fracture of shaft of left tibia;Weakness Presentation: 05/21 22:54 Chief complaint: EMS states: BIBA FROM HOME AT 2200 FELL ON FLOOR. LANDED ON LEFT SIDE. mt2 DENIES HITTING HEAD. NEG LOC. SEVERE PAIN ON LLE. AIR SPLINT BY EMS. NO BLEEDING NOTED. Coronavirus screen: At this time, the client does not indicate any symptoms associated with coronavirus-19. Ebola Screen: No symptoms or risks identified at this time. Initial Sepsis Screen: Does the patient meet any 2 criteria? No. Patient's initial sepsis screen is negative. Does the patient have a suspected source of infection? No. Patient's initial sepsis screen is negative. Risk Assessment: Do you want to hurt yourself or someone else? Patient reports no desire to harm self or others. Onset of symptoms was May 21, 2020 at 22:00. Care prior to arrival: Splint applied. 22:54 Method Of Arrival: EMS: [facility] mt2 22:54 Acuity: JES 2 mt2 Triage Assessment: 22:59 General: Appears uncomfortable, Behavior is cooperative. Pain: Complains of pain in mt2 left leg Pain currently is 10 out of 10 on a pain scale. EENT: No deficits noted. Neuro: No deficits noted. Cardiovascular: HYPOTENSION. Respiratory: No deficits noted. GI: No deficits noted. : No deficits noted. Derm: No deficits noted. Musculoskeletal: Swelling present in left leg Reports pain in left leg. Historical: - Allergies: 22:58 No Known Allergies; mt2 - Home Meds: 05/22 00:55 multivitamin oral tab daily [Active]; Plavix 75 mg Oral tab for Myocardial Infarction mt2 Prevention [Active]; citalopram 20 mg tab 2 tabs once daily for Anxiety with Depression [Active]; ruxolitinib oral oral 1 tab 2 times per day for Polycythemia Vera [Active]; omeprazole 20 mg Oral cpDR 1 cap once daily for Gastroesophageal Reflux [Active]; aspirin 81 mg Oral chew 1 tab once daily for Myocardial Infarction Prevention [Active]; Lipitor 80 mg Oral tab for Hyperlipidemia [Active]; Eliquis 5 mg oral tab 1 tab 2 times per day for POLYCYTHEMIA VERA [Active]; - PMHx: 05/21 22:58 Myocardial infarction; CVA; mt2 - PSHx: 22:58 Hernia repair; mt2 - Immunization history:: Adult Immunizations up to date. - Social history:: Smoking status: Patient reports the use of cigarette tobacco products, cigars, Patient uses alcohol, occasionally. - Family history:: not pertinent. Screenin:59 Abuse screen: Denies threats or abuse. Nutritional screening: No deficits noted. mt2 Tuberculosis screening: No symptoms or risk factors identified. Fall Risk Fall in past 12 months (25 points). Gait- Impaired (20 pts.). Assessment: 23:33 Reassessment: Patient and/or family updated on plan of care and expected duration. Pain mt2 level reassessed. Patient is alert, oriented x 3, equal unlabored respirations, skin warm/dry/pink. General: Appears uncomfortable, Behavior is cooperative. Pain: Complains of pain in left leg Pain currently is 10 out of 10 on a pain scale. 05/22 00:34 Reassessment: Patient and/or family updated on plan of care and expected duration. Pain mt2 level reassessed. Patient is alert, oriented x 3, equal unlabored respirations, skin warm/dry/pink. General: Appears uncomfortable, Behavior is cooperative. Pain: Complains of pain in left leg Pain currently is 10 out of 10 on a pain scale. 01:36 Reassessment: Patient and/or family updated on plan of care and expected duration. Pain mt2 level reassessed. Patient is alert, oriented x 3, equal unlabored respirations, skin warm/dry/pink. General: Appears comfortable, Behavior is calm. Pain: Complains of pain in left leg Pain currently is 4 out of 10 on a pain scale. at worst was 10 out of 10 on a pain scale. level that patient reports is acceptable is 4 out of 10 on a pain scale. 01:36 Reassessment: [facility] AT BEDSIDE TO TRANSPORT PT TO [facility]. mt2 Vital Signs: 05/21 22:54 BP 98 / 54; Pulse 80; Resp 16; Temp 97.; Pulse Ox 97% ; Weight 99.79 kg; Pain 10/10; mt2 23:33 BP 108 / 51; Pulse 80; Resp 16; Pulse Ox 97% on R/A; Pain 8/10; mt2 05/22 00:34 BP 117 / 83; Pulse 80; Resp 16; Pulse Ox 98% on 2 lpm NC; Pain 10/10; mt2 01:35 BP 114 / 71; Pulse 82; Resp 16; Temp 97.9(O); Pulse Ox 97% 2 lpm ; Pain 4/10; mt2 NIH Stroke Scale Scores: 05/21 23:03 NIHSS Score: 0 [facility] ED Course: 22:54 Patient arrived in ED. sg 22:54 Lisa Holland, CODIE is Primary Nurse. mt2 22:56 Bandar Cooley MD is Attending Physician. jose g 22:58 Triage completed. mt2 22:59 Arm band placed on right wrist. mt2 23:00 Patient has correct armband on for positive identification. Call light in reach. Side mt2 rails up X 1. 23:07 Initial lab(s) drawn, by vt, sent to lab. Inserted saline lock: 18 gauge in right [facility] antecubital area, using aseptic technique. Blood collected. 05/22 00:22 Tib Fib Left XRAY In Process Unspecified. EDMS 00:23 initiated transfer to [facility] spoke with Melanie Fulton. [facility] 00:33 Orthoglass splint: Posterior short lleg splint applied on left leg. stirrup splint mt2 applied on left leg. 00:35 No provider procedures requiring assistance completed. mt2 00:46 administrative approval given by Melanie Ndiaye. Accepted by . pt going to [address] 01:38 Patient transferred, IV remains in place. mt2 Administered Medications: 05/21 23:10 Drug: NS 0.9% 1000 ml Route: IV; Rate: 125 ml/hr; Site: right antecubital; mt2 23:48 Follow up: Response: No adverse reaction [facility] 05/22 01:38 Follow up: Response: No adverse reaction; IV Status: Completed infusion [facility] 05/21 23:10 Drug: fentaNYL (PF) 25 mcg Route: IVP; Site: right antecubital; mt2 23:48 Follow up: Response: No adverse reaction; Pain is unchanged, physician notified mt2 23:10 Drug: Zofran (Ondansetron) 4 mg Route: IVP; Site: right antecubital; mt2 23:48 Follow up: Response: No adverse reaction; Nausea is decreased mt2 23:49 Drug: fentaNYL (PF) 25 mcg Route: IVP; Site: right antecubital; mt2 0903 00:32 Follow up: Response: No adverse reaction; Pain is unchanged, physician notified mt2 00:32 Drug: fentaNYL (PF) 50 mcg Route: IVP; Site: right antecubital; mt2 00:56 Follow up: Response: No adverse reaction; Pain is decreased mt2 Outcome: 00:30 ER care complete, transfer ordered by MD. araiza 01:37 Transferred by ground EMS to [facility], Transfer form completed. X-rays sent mt2 w/ patient. 01:37 Condition: stable 01:37 Instructed on the need for transfer. 01:38 Patient left the ED. mt2 NIH Stroke Scale - NIH Stroke Score Date: 05/21/2020 Time: 23:03 Total Score = 0 1a. Level of Consciousness (LOC) - 0(Alert) 1b. Level of Consciousness (LOC) (Year \T\ Age) - 0(Both) 1c. LOC Commands (Open \T\ Closes Eyes/Coordinate Measuring Machine Technician) - 0(Both) 2. Best Gaze (Lateral Gaze Paresis) - 0(Normal) 3. Visual Field Loss - 0(No visual loss) 4. Facial Palsy - 0(Normal) 5a. Left Arm: Motor (10-second hold) - 0(No drift) 5b. Right Arm: Motor (10-second hold) - 0(No drift) 6a. Left Leg: Motor (5-second hold - always test supine) - 0(No drift) 6b. Right Leg: Motor (5-second hold - always test supine) - 0(No drift) 7. Limb Ataxia (finger/nose \T\ heel/smith - test with eyes open) - 0(Absent) 8. Sensory Loss (pinprick arms/legs/face) - 0(Normal) 9. Best Language: Aphasia (description/naming/reading) - 0(No aphasia) 10. Dysarthria (speech clarity - read or repeat words) - 0(Normal) 11. Extinction and Inattention (visual/tactile/auditory/spatial/personal) - 0(No abnormality) Initials: jose g Signatures: Dispatcher [employer] Alex Belcher RN Bandar Sargent MD MD cha [place], MyKena mw2 Lisa Holland RN RN mt2
--- NOTE | 2020-05-22 15:13 | RAD REPORT ---
EXAM DESCRIPTION: Tib Fib Left CLINICAL HISTORY: Pain;Swelling COMPARISON: None. TECHNIQUE: XR TIBIA FIBULA 05/21/2020 11:03 PM CDT FINDINGS: There is an oblique fracture of the lower third of the tibial shaft. There is a mildly com minuted proximal fibular fracture. Joint spaces are preserved. There is diffuse soft tissue swellin g overlying the fractures. IMPRESSION: Left tibial and fibular fractures. Electronically signed by: Lionel Ordonez MD 05/22/2020 3:16 AM CDT Due to temporary technical issues with the PACS/Fluency reporting system, reports are being signed by the in house radiologist without review as a courtesy to ensure prompt reporting. The interpreting r adiologist is fully responsible for the content of the report.
--- NOTE | 2020-05-23 11:14 | EKG ---
Test Date: 2020-05-21 Test Time: 23:18:32 Keller Machine Operator: SHAKA MEASUREMENT RESULTS: Intervals: Rate: 95 PA: 164 QRSD: 104 QT: 400 QTc: 502 [place]: P: 67 PA: 164 QRS: -46 T: 91 INTERPRETIVE STATEMENTS: Normal sinus rhythm Incomplete right bundle branch block Left anterior fascicular block Minimal voltage criteria for LVH, may be normal variant Nonspecific T wave abnormality Prolonged QT Abnormal ECG Compared to ECG 11/05/2018 09:52:57 Left ventricular hypertrophy now present T-wave abnormality now present Prolonged QT interval now present Fusion complex(es) no longer present Myocardial infarct finding no longer present Electronically Signed On 05-23-20 11:10:37 CDT by Evangelist Neely
--- NOTE | 2020-05-23 11:14 | EKG ---
Test Date: 2020-05-21 Test Time: 23:21:48 Bee Tender: SHAKA MEASUREMENT RESULTS: Intervals: Rate: 88 IN: 164 QRSD: 112 QT: 380 QTc: 459 [place]: P: 62 IN: 164 QRS: -48 T: 98 INTERPRETIVE STATEMENTS: Normal sinus rhythm Incomplete right bundle branch block Left anterior fascicular block Left ventricular hypertrophy with repolarization abnormality Abnormal ECG Compared to ECG 05/21/2020 23:18:32 Early repolarization now present T-wave abnormality no longer present Prolonged QT interval no longer present Electronically Signed On 05-23-20 11:10:36 CDT by Evangelist Neely
[2020-05-24 02:58] VITALS: TEMP 97
[2020-05-24 03:01] VITALS: BP 117/83; O2SAT 98
== END 2020-05-22 01:38 | disposition short-term general hospital (02) ==
LOC: ER 22:51
DX: S82.462A Displaced segmental fracture of shaft of left fibula, initial encounter for closed fracture (principal); S82.262A Displaced segmental fracture of shaft of left tibia, initial encounter for closed fracture; W18.00XA Striking against unspecified object with subsequent fall, initial encounter; Y93.9 Activity, unspecified; Y92.009 Unspecified place in unspecified non-institutional (private) residence as the place of occurrence of the external cause; I25.2 Old myocardial infarction; E78.5 Hyperlipidemia, unspecified; F41.8 Other specified anxiety disorders; K21.9 Gastro-esophageal reflux disease without esophagitis; Z79.01 Long term (current) use of anticoagulants; Z79.82 Long term (current) use of aspirin; Z86.73 Personal history of transient ischemic attack (TIA), and cerebral infarction without residual deficits
CPT/HCPCS: 96361; 93005 ×2; 85025; 80048; 36415; 83735; 85610; 80076; 84484; 83880; 73590; 96375; 96374; 99285; J3010; J7030; J2405